=== PATIENT | male | born 1975 | race Caucasian/White ===

== ENCOUNTER → 2022-05-14 10:00 | Outpatient (BNVA) | payer OTHER, SELFPAY | PROVIDERS: Visit Provider Counselor Mental Health | DX: F43.20 Adjustment disorder, unspecified (principal); G47.30 Sleep apnea, unspecified; E66.01 Morbid (severe) obesity due to excess calories | CPT/HCPCS: 90791 ==

== ENCOUNTER → 2022-05-30 09:28 | Outpatient (BNVA) | payer OTHER, SELFPAY | PROVIDERS: Visit Provider Dietitian, Registered | DX: E66.01 Morbid (severe) obesity due to excess calories (principal) | CPT/HCPCS: 97802 ==

== ENCOUNTER → 2022-09-23 09:55 | Outpatient (BNVA) | payer OTHER, BC, SELFPAY | PROVIDERS: Visit Provider Nurse Practitioner Family | DX: Z13.89 Encounter for screening for other disorder (principal) ==

== ENCOUNTER → 2022-10-28 08:06 | Outpatient (BNVA) | payer OTHER, BC, SELFPAY | PROVIDERS: Visit Provider Surgery | DX: Z13.89 Encounter for screening for other disorder (principal) ==

== ENCOUNTER 2022-11-04 08:07 | Outpatient (REF) | payer OTHER, BC, SELFPAY ==
--- NOTE | ~2022-11-04 | US_ITS ---
EXAMINATION: US COMPLETE ABDOMEN WITH LIVER ELASTOGRAPHY CLINICAL INFORMATION: Morbid/severe obesity due to excess calories. COMPARISON: None available. TECHNIQUE: Real-time imaging of the abdominal viscera. Noninvasive ultrasound liver fibrosis assessment is performed using Velia ElastPQ point quantification shear wave elastography (2D-SWE) with a C5-2 MHz transducer. Multiple elastography samples are obtained. FINDINGS: PANCREAS: The visualized pancreatic head and body are normal in appearance. The tail of the pancreas is obscured from visualization by the overlying bowel gas. ABDOMINAL AORTA: The proximal, middle, and distal aortic segments are normal in caliber. INFERIOR VENA CAVA: Visualized portions are normal. LIVER: The liver demonstrates normal size, contour and increased echogenicity. No focal lesion or intrahepatic biliary duct dilatation. The right lobe measures 19.0 cm in length. The left lobe measures 16.3 cm in length. Portal flow is hepatopedal. Shear wave liver elastography median stiffness is 1.52 m/s (reference: normal median stiffness is 1.3 m/s or less). IQR/median stiffness to assess sampling precision is 0.24 (reference: good quality data set is IQR/median stiffness of 0.15 or less). GALLBLADDER: Gallbladder wall thickness measures 0.4 cm The gallbladder is physiologically distended without evidence of stones, sludge, polyps, wall thickening or pericholecystic fluid. COMMON BILE DUCT: Normal in caliber measuring 0.6 cm in diameter. RIGHT KIDNEY: Normal. No hydronephrosis. No renal calculi or focal parenchymal lesions. The kidney measures 12.1 cm in maximum dimension. LEFT KIDNEY: Normal. No hydronephrosis. No renal calculi or focal parenchymal lesions. The kidney measures 12.0 cm in maximum dimension. SPLEEN: Normal. The spleen measures 11.6 cm in maximum dimension. FREE FLUID: None. US/US abdomen comp w elastography IMPRESSION: 1. Mild hepatic steatosis without focal lesion. The rest of the abdominal ultrasound is unremarkable. 2. Liver elastography: Median liver stiffness measures 1.52 m/s, which corresponds to c ACLD ruled out. REFERENCE: Society of Radiologists in Ultrasound Liver Stiffness Thresholds (2019): LIVER STIFFNESS THRESHOLDS: *Liver Stiffness equal or less than 1.3 m/s: High probability of being normal. *Liver Stiffness less than 1.7 m/s: In the absence of other known clinical signs, rules out compensated advanced chronic liver disease. *Liver Stiffness 1.7-2.1 m/s: Suggestive of compensated advanced chronic liver disease but need further test for confirmation. *Liver Stiffness over 2.1 m/s: Rules in compensated advanced chronic liver disease. *Liver Stiffness over 2.4 m/s: Suggestive of clinically significant portal hypertension. QUALITY OF DATA SET: *IQR/Median value equal or less than 0.15 implies a quality data set. *IQR/Median value over 0.15 implies a poor quality data set. SIGNIFICANT CHANGE FROM PRIOR EXAM: Significant change if liver stiffness measurement is 10% or greater from prior exam. OTHER CONSIDERATIONS: The stage of liver fibrosis may be overestimated in the setting of acute hepatitis, liver inflammation, elevated liver function tests, hepatic vascular congestion, obstructive cholestasis, non-fasting state, and infiltrative diseases such as amyloidosis and lymphoma. In some patients with NAFLD, the liver stiffness thresholds for compensated advanced chronic liver disease may be lower. In causes other than viral hepatitis and NAFLD, liver stiffness thresholds are not well established.
--- NOTE | ~2022-11-04 | XR_ITS ---
EXAMINATION: XR CHEST CLINICAL INFORMATION: Bariatric service evaluation. COMPARISON: None available. TECHNIQUE: 2 views of the chest were obtained. FINDINGS: The lungs are clear and the vascularity is normal. There is no infiltrate or effusion. Heart size normal. The hilar and mediastinal contours and visualized bony structures are unremarkable. XR/XR chest 2V IMPRESSION: Unremarkable examination.
--- NOTE | ~2022-11-04 | FL_ITS ---
PROCEDURE: XR FLUOROSCOPY UPPER GI WITH AIR CLINICAL INFORMATION: Morbid/severe obesity. COMPARISON: None available. TECHNIQUE: Routine upper GI air-contrast study was performed. FINDINGS: Following oral administration of thick barium and effervescent granules there is normal propagation of bolus from the oral cavity through the pharynx, esophagus into stomach without any evidence of obstruction, narrowing or stricture. 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 Rest of the esophagus is unremarkable. On placing patient supine and prone lying the course, caliber and peristalsis of stomach, duodenal bulb and the sweep is normal. The mucosal pattern of the stomach and the duodenum is normal. FLUOROSCOPY TIME: 1.8 minutes DOSE AREA PRODUCT: 57.921 uGy-m2 (microgray-meter squared) FL/FL upper GI w air IMPRESSION: Unremarkable upper GI air-contrast exam.
--- NOTE | 2022-11-04 08:14 | ECG_ITS ---
Test Reason : e66.01 Blood Pressure : / mmHG Vent. Rate : 081 BPM Atrial Rate : 081 BPM P-R Int : 170 ms QRS Dur : 146 ms QT Int : 428 ms P-R-T Axes : 065 014 013 degrees QTc Int : 497 ms Normal sinus rhythm Right bundle branch block Abnormal ECG No previous ECGs available Referred By: Albert Domínguez Electronically Signed By:MYLA HERNANDEZ
[2022-11-04 08:22] LABS: MANUAL DIFF FLAG NO
[2022-11-04 08:28] LABS: Basophils Absolute Auto 0.1 X10*3/uL (0.0-0.2); Basophils Percent Auto 0.6 % (0-2); Eosinophils Absolute Auto 0.4 X10*3/uL (0.0-0.4); Eosinophils Percent Auto 2.9 % (0-4); Hematocrit 47.4 % (42.0-52.0); Hemoglobin 15.5 g/dl (14.0-18.0); Imm Gran Abs Auto 0.08 X10*3/uL (0.00-0.03); Imm Gran Pct Auto 0.6 % (0.0-0.4); Lymphocytes Absolute Auto 4.5 X10*3/uL (1.2-4.9); Lymphocytes Percent Auto 34.7 % (20-40); Mean Corpuscular HGB Conc 32.7 g/dl (31.0-36.0); Mean Corpuscular Hemoglobin 29.1 pg (27.0-33.0); Mean Corpuscular Volume 88.9 fL (80.0-98.0); Mean Platelet Volume 10.1 fL (9.4-12.4); Monocytes Absolute Auto 0.9 X10*3/uL (0.1-1.2); Monocytes Percent Auto 7.3 % (2-11); Neutrophils Percent Auto 53.9 % (45-73); Platelet Count 266 X10*3/uL (160-400); Red Blood Count 5.33 X10*6/uL (4.60-5.80); Red Cell Distribution Width 13.5 % (11.0-16.0); White Blood Count 12.9 X10*3/uL (4.8-10.8)
[2022-11-04 08:39] LABS: Estimated Average Glucose 154 mg/dL
[2022-11-04 09:11] LABS: Alanine Aminotransferase 25 U/L (0-40); Albumin Level 3.9 g/dL (3.5-5.0); Alkaline Phosphatase 84 U/L (39-117); Anion Gap 13 (12-20); Aspartate Amino Transferase 18 U/L (5-37); Bilirubin Total 0.6 mg/dL (0.0-1.0); Blood Urea Nitrogen 12 mg/dL (9-16); C Reactive Protein 0.59 mg/dL (< or = 0.50); Calcium 9.3 mg/dL (8.4-10.2); Carbon Dioxide 27 mmol/L (22-29); Chloride 105 mmol/L (96-108); Cholesterol 176 mg/dL; Estimated Glomerular Filt Rate > 60; Glucose Random 122 mg/dL (60-115); HDL Cholesterol 29 mg/dL; Iron 79 mcg/dL (45-160); LDL Cholesterol Calculated 73 mg/dl; Percent Iron Saturation 26 % (15-50); Potassium 4.5 mmol/L (3.3-5.1); Sodium 140 mmol/L (135-145); Total Iron Binding Capacity 309 mcg/dL (228-428); Total Protein 6.9 g/dL (6.5-8.0); Triglycerides 372 mg/dL; Unsaturated Iron Binding 230 ug/dL
[2022-11-04 09:41] LABS: Ferritin 221 ng/mL (20-250); Folate 9.5 ng/mL (> or = 4.0); Insulin 30 uU/mL (2-29); Vitamin B12 333 pg/mL (200-900); Vitamin D 25-OH Total 19.1 ng/mL (>30)
[2022-11-06 11:02] LABS: Calcium (PTHI) 9.2 mg/dL (8.6-10.3); PTHI 57 pg/mL (16-77)
[2022-11-06 15:20] LABS: H Pylori Breath Test Negative (Negative)
[2022-11-07 06:19] LABS: Zinc 75 mcg/dL (60-130)
[2022-11-08 18:54] LABS: Vitamin A 38 mcg/dL (38-98)
[2022-11-10 10:43] LABS: Vitamin B1 11 nmol/L (8-30)
== END 2022-11-04 08:08 | disposition home or self-care (01) ==
LOC: HO.US 08:07
PROVIDERS: Visit Provider Surgery
DX: Z01.818 Encounter for other preprocedural examination (principal); E66.01 Morbid (severe) obesity due to excess calories; G47.30 Sleep apnea, unspecified; K21.9 Gastro-esophageal reflux disease without esophagitis; J45.909 Unspecified asthma, uncomplicated; G47.36 Sleep related hypoventilation in conditions classified elsewhere; Z20.2 Contact with and (suspected) exposure to infections with a predominantly sexual mode of transmission
CPT/HCPCS: 36415; 71046; 74246; 76705; 76981; 80053; 80061; 82306; 82607; 82728; 82746; 83013; 83036; 83525; 83540; 83970; 84425; 84443; 84590; 84630; 85025; 86140; 93005

== ENCOUNTER → 2022-11-04 15:17 | Outpatient (REF) | payer OTHER, BC, SELFPAY | LOC: HO.SL 15:17 | PROVIDERS: PCP Internal Medicine Cardiovascular Disease; Visit Provider Nurse Practitioner Family | DX: G47.30 Sleep apnea, unspecified (principal); E66.01 Morbid (severe) obesity due to excess calories; G47.36 Sleep related hypoventilation in conditions classified elsewhere | CPT/HCPCS: 95806 ==

== ENCOUNTER → 2022-11-13 10:30 | Outpatient (BNVA) | payer OTHER, BC, SELFPAY | PROVIDERS: PCP Internal Medicine Cardiovascular Disease; Visit Provider Counselor Mental Health | DX: Z13.89 Encounter for screening for other disorder (principal) ==

== ENCOUNTER → 2022-11-14 11:16 | Outpatient (BNVA) | payer OTHER, BC, SELFPAY | PROVIDERS: PCP Internal Medicine Cardiovascular Disease; Visit Provider Dietitian, Registered | DX: E66.01 Morbid (severe) obesity due to excess calories (principal); Z71.3 Dietary counseling and surveillance | CPT/HCPCS: 97803 ==

== ENCOUNTER → 2022-11-22 07:58 | Outpatient (BNVA) | payer OTHER, BC, SELFPAY | PROVIDERS: Visit Provider Surgery | DX: Z13.89 Encounter for screening for other disorder (principal) ==

== ENCOUNTER → 2022-12-02 08:04 | Outpatient (REF) | payer OTHER, BC, SELFPAY ==
--- NOTE | 2022-12-02 08:09 | CA_ITS ---
Acquisition Time: 2022-12-02 09:15:19 Total Exercise Time: 00:06:56 Test Indications: Abnormal ECG Medications: ALBUTEROL [id number] METFORMI N BUDESONIDE Protocol: KEN Max HR: 150 BPM 87% of Pred: 171 BPM Max BP: 132/082 mmHG Max Work Load: 8.4 METS Exercise stress test with exercise 6 min 56 sec of Ken protocol, achieving 87% MPHR, 8.4 METs, with mild sob, no chest discomfort, without arrythmia, with normotensive response to exercise, without EKG changes meeting criteria for ischemia. There are repolarization abnormalities noted in V1-V3 which is consistent with RBBB. In recovery his breathing improved quickly. Test reviewed with Dr Kelsey. Referred By: Albert Domínguez Overread By: CHARLOTTE MEZA
--- NOTE | 2022-12-02 08:09 | CA_ITS ---
Transthoracic Echocardiogram Patient (Last, First, Middle): Pretson Clarke, Gender: Male Date of : 1975 Age: 47 Procedure Date: 12/02/2022 Procedure Type: Transthoracic Echocardiogram Location: OP Height: 170.18 cm Weight: 124.29 kg BSA: 2.31 m2 Heart Rate: 70 bpm BP: 122 / 70 mmHg Doctor Of Medicine: SB Referring MD: Albert Domínguez MD Symptoms: R94.31 - Abnormal electrocardiogram [ECG] [EKG] Study Quality: Adequate w contrast ECG Rhythm: Sinus Conclusions: - The left ventricular systolic function is normal. The calculated ejection fraction is 55% by biplane method. - No obvious valvular pathology seen on this study. Findings Procedure Information Contrast agent, definity, is being given per protocol without apparent complications. Left Ventricle Normal left ventricular cavity size. There is normal left ventricular wall thickness. The left ventricular systolic function is normal. The calculated ejection fraction is 55% by biplane method. There is no evidence of regional wall motion abnormalities. Diastolic function is normal for age. Right Ventricle Normal right ventricular cavity size and systolic function. Atria Both atria are normal in size. Aortic Valve There is a normal trileaflet aortic valve. There is no aortic valve stenosis. There is no aortic valve regurgitation. Mitral Valve The mitral valve appears normal. There is no mitral valve regurgitation. There is no mitral valve stenosis. Pulmonic Valve The pulmonic valve is likely normal. Tricuspid Valve There is trace tricuspid valve regurgitation. There is no evidence of pulmonary hypertension. Great Vessels The asc aorta is normal in size. Venous The inferior vena cava is normal in size and collapses greater than 50% with inspiration. Pericardium/Pleural There is no evidence of pericardial effusion. Prior Study Comparison No prior study available for comparison. Recommendations, Care & Conclusions No obvious valvular pathology seen on this study. Measurements 2D Linear Measurements IVSd: 1.03 0.6-0.9/0.6-1.0 cm LVIDd: 5.31 3.9-5.3/4.2-5.9 cm LVIDd Index: 2.30 2.4-3.2/2.2-3.1 cm/m2 LVIDs: 3.68 2.0-3.6 cm LVPWd: 0.99 0.7-1.1 cm LA Diam: 4.30 2.7-3.8/3.0-4.0 cm LAIDs Index: 1.86 1.5-2.3 cm/m2 LV Mass: 253.54 67-162/88-224 g LV Mass Index: 109.76 43-95/49-115 g/m2 LVOT Diam: 2.40 3.0+(-)1.3 cm 2D Systolic Function EF 4C: 56.00 >55% EF 2C: 55.10 >55% EF BiP: 54.90 >55% Mitral Valve MV Pk E: 0.71 MV PK A: 0.57 MV Decel Time: 212.00 E/A: 1.20 E'Lateral: 8.92 E'Medial: 5.98 E/E' Med: 11.80 E/E' Lat: 7.90 PHT: 62.00 MVA PHT: 3.55 Decel Pleasants: 3.34 Aortic Valve AoV Pk Elliott: 1.22 AoV Pk Grad: 6.00 JERRY: 3.80 LVOT LVOT Pk Elliott: 1.03 LVOT Mn Elliott: 0.64 LVOT VTI: 0.21 LVOT Pk Grad: 4.00 LVOT Mn Grad: 2.00 LVOT Diam: 2.40 LVOT Area: 4.52 Diastolic Function MV Pk E: 0.71 MV Pk A: 0.57 E/A: 1.20 E'Medial: 5.98 E/E' Med: 11.80 E' Laterial: 8.92 E/E' Lat: 7.90 Right Ventricle TAPSE (mm): 18.60 TVS' Elliott: 16.00 Tricuspid Valve RA Press: 3.00 Great Vessels Aorta Sinus of Valsalva: 3.30 2.0-3.5 cm Ao Asc: 3.20 2.1-3.4 cm Pulmonary Veins Pulm Vein S/D 0.90 Pulmonary Valve PV Pk Elliott: 1.37 Peak PV Grad: 8.00 Updated in Other Vendor System with Status of Final Alex Alberto MD electronically signed on 12/02/2022 12:37:14 PM with status of Final
== END ==
LOC: HO.CARD 08:04
PROVIDERS: PCP Internal Medicine Cardiovascular Disease; Visit Provider Surgery
DX: Z01.818 Encounter for other preprocedural examination (principal); R94.31 Abnormal electrocardiogram [ECG] [EKG]; R06.02 Shortness of breath
CPT/HCPCS: 93017; 93306; Q9957

== ENCOUNTER → 2022-12-10 10:29 | Outpatient (BNVA) | payer OTHER, BC, SELFPAY | PROVIDERS: PCP Internal Medicine Cardiovascular Disease; Visit Provider Dietitian, Registered | DX: E66.01 Morbid (severe) obesity due to excess calories (principal); Z68.41 Body mass index [BMI] 40.0-44.9, adult; Z71.3 Dietary counseling and surveillance | CPT/HCPCS: 97803 ==

== ENCOUNTER → 2022-12-13 08:00 | Outpatient (BNVA) | payer OTHER, BC, SELFPAY | PROVIDERS: Visit Provider Surgery ==

== ENCOUNTER → 2022-12-20 07:58 | Outpatient (BNVA) | payer OTHER, BC, SELFPAY | PROVIDERS: Visit Provider Surgery ==

== ENCOUNTER → 2022-12-23 09:58 | Outpatient (BNVA) | payer OTHER, BC, SELFPAY | PROVIDERS: Visit Provider Surgery ==

== ENCOUNTER 2023-01-07 06:13 | Inpatient (IN) | payer OTHER, BC, SELFPAY ==
[2022-12-20 13:21] VITALS: BMI 41.2
[2022-12-23 12:22] LABS: MANUAL DIFF FLAG NO
[2022-12-23 12:50] LABS: Basophils Absolute Auto 0.1 X10*3/uL (0.0-0.2); Basophils Percent Auto 0.6 % (0-2); Eosinophils Absolute Auto 0.3 X10*3/uL (0.0-0.4); Eosinophils Percent Auto 2.2 % (0-4); Hematocrit 48.2 % (42.0-52.0); Hemoglobin 15.9 g/dl (14.0-18.0); Imm Gran Abs Auto 0.06 X10*3/uL (0.00-0.03); Imm Gran Pct Auto 0.5 % (0.0-0.4); Lymphocytes Absolute Auto 3.7 X10*3/uL (1.2-4.9); Lymphocytes Percent Auto 29.7 % (20-40); Mean Corpuscular Hemoglobin 29.3 pg (27.0-33.0); Mean Corpuscular Volume 88.8 fL (80.0-98.0); Mean Platelet Volume 10.4 fL (9.4-12.4); Monocytes Absolute Auto 0.7 X10*3/uL (0.1-1.2); Monocytes Percent Auto 5.9 % (2-11); Neutrophils Absolute Auto 7.6 x10*3/uL (2.0-8.3); Neutrophils Percent Auto 61.1 % (45-73); Platelet Count 303 X10*3/uL (160-400); Red Blood Count 5.43 X10*6/uL (4.60-5.80); Red Cell Distribution Width 13.2 % (11.0-16.0); White Blood Count 12.5 X10*3/uL (4.8-10.8)
[2022-12-23 13:05] LABS: Prothrombin Time 11.1 SEC (10.0-13.1)
[2022-12-23 13:08] LABS: Partial Thromboplastin Time 43.2 SEC (26.0-36.4)
[2022-12-23 13:14] LABS: Estimated Average Glucose 123 mg/dL; Hemoglobin A1c % 5.9 %
[2022-12-23 13:29] LABS: Alanine Aminotransferase 11 U/L (0-40); Albumin Level 4.2 g/dL (3.5-5.0); Alkaline Phosphatase 81 U/L (39-117); Anion Gap 12 (12-20); Aspartate Amino Transferase 14 U/L (5-37); Bilirubin Total 0.9 mg/dL (0.0-1.0); Blood Urea Nitrogen 8 mg/dL (9-16); C Reactive Protein 0.49 mg/dL (< or = 0.50); Calcium 9.4 mg/dL (8.4-10.2); Carbon Dioxide 29 mmol/L (22-29); Chloride 104 mmol/L (96-108); Cholesterol 160 mg/dL; Creatinine Clr Calc Pharmacy 129.9; Estimated Glomerular Filt Rate > 60; Glucose Random 94 mg/dL (60-115); HDL Cholesterol 30 mg/dL; LDL Cholesterol Calculated 99 mg/dl; Potassium 4.4 mmol/L (3.3-5.1); Sodium 141 mmol/L (135-145); Total Protein 7.1 g/dL (6.5-8.0); Triglycerides 155 mg/dL
[2022-12-23 13:45] LABS: Insulin 16 uU/mL (2-29); TSH reflex Free T4 0.77 uIU/mL (0.32-4.0)
--- NOTE | 2023-01-03 09:50 | P.CONAN_ITS ---
Documented by User: Maureen Chan NP 01/03/23 09:51 [facility] Active Problems Active Problems: All Active Problems (Updated 12/20/22 @ 13:10 by Yara Driver RN) Adjustment disorder, unspecified (Acute) Hypoxemia associated with sleep (Acute) Vitamin D deficiency (Acute) Vitamin B12 deficiency (Acute) Abnormal EKG (Acute) GERD (gastroesophageal reflux disease) (Acute) Sleep apnea (Acute) Asthma (Acute) Morbid obesity (Acute) Past Medical History Medical History Asthma GERD (gastroesophageal reflux disease) Morbid obesity Prediabetes Sleep apnea Family History Family History Mother HTN (hypertension) Father HTN (hypertension) Diabetes Son No problems noted. Son No problems noted. Surgical History Surgical History H/O colonoscopy History of esophagogastroduodenoscopy (EGD) Social History Social History Are you a primary clinical care coordinator to a significant other at home: No Do you presently have visiting nurse or other home services: No Alcohol intake: never Patient Tobacco Use Status: Never used Tobacco Use of substances other than those prescribed or required for medical reasons: No Have you been hit, kicked, punched, or otherwise hurt by someone within the past year? If so, by whom?: No Are you DNR?: No Advance Directives: Yes Advance Directives Information Provided: No Advance Directives on File: Yes Advance Directives Date on File: 11/04/22 Recently lost weight without trying: No Nutrition Risks: No Nutritional Risk Poor oral hygiene: No Meds Allergies Allergy/AdvReac Type Severity Reaction Status Date / Time No Known Allergies Allergy Verified 01/07/23 06:14 Home Medications Medication Instructions Recorded Confirmed Last Taken Type albuterol sulfate 0.63 mg/3 mL 0.63 mg inhalation QID PRN Wheezing 04/29/22 12/20/22 Unknown History solution for nebulization ascorbic acid (vitamin C) 500 mg 500 mg PO DAILY 04/29/22 12/20/22 01/06/23 History capsule,extended release budesonide 0.5 mg/2 mL suspension 0.25 mg inhalation BID PRN Wheezing 04/29/22 12/20/22 Unknown History for nebulization (Pulmicort) metformin 500 mg tablet 500 mg PO BID 11/04/22 12/20/22 01/06/23 History pantoprazole 40 mg tablet,delayed 40 mg PO DAILY PRN Acid Reflux 12/20/22 12/20/22 Unknown History release Exam Exam Date and Time: January 03, 2023 0950 Height,Weight and Vital Signs: Height 5 ft 7 in Weight 119.295 kg Pertinent Lab Results Pertinent Lab Results: Laboratory Tests 12/23/22 12/23/22 12/23/22 12:20 12:21 12:21 WBC 12.5 H RBC 5.43 Hgb 15.9 Hct 48.2 MCV 88.8 MCH 29.3 MCHC 33.0 RDW 13.2 Plt Count 303 MPV 10.4 Immature Gran % (Auto) 0.5 H Neut % (Auto) 61.1 Lymph % (Auto) 29.7 [place] % (Auto) 5.9 Eos % (Auto) 2.2 Baso % (Auto) 0.6 Lymph # (Auto) 3.7 [place] # (Auto) 0.7 Eos # (Auto) 0.3 Baso # (Auto) 0.1 Abs Immat Gran (auto) 0.06 H Absolute Neuts (auto) 7.6 Absolute Nucleated RBC 0.000 Nucleated RBC % (auto) 0.0 PT 11.1 INR 1.0 APTT 43.2 H Sodium Potassium Chloride Carbon Dioxide Anion Gap BUN Creatinine Estim Creat Clear Calc Estimated GFR Random Glucose Estimat Average Glucose Hemoglobin A1c % Insulin Level Calcium Total Bilirubin AST ALT Alkaline Phosphatase C-Reactive Protein Total Protein Albumin Triglycerides Cholesterol LDL Cholesterol, Calc HDL Cholesterol TSH Blood Type A Positive Antibody Screen NEGATIVE 12/23/22 12/23/22 12:21 12:21 WBC RBC Hgb Hct MCV MCH MCHC RDW Plt Count MPV Immature Gran % (Auto) Neut % (Auto) Lymph % (Auto) [place] % (Auto) Eos % (Auto) Baso % (Auto) Lymph # (Auto) [place] # (Auto) Eos # (Auto) Baso # (Auto) Abs Immat Gran (auto) Absolute Neuts (auto) Absolute Nucleated RBC Nucleated RBC % (auto) PT INR APTT Sodium 141 Potassium 4.4 Chloride 104 Carbon Dioxide 29 Anion Gap 12 BUN 8 L Creatinine 0.85 Estim Creat Clear Calc 129.9 Estimated GFR > 60 Random Glucose 94 Estimat Average Glucose 123 Hemoglobin A1c % 5.9 Insulin Level 16 Calcium 9.4 Total Bilirubin 0.9 AST 14 ALT 11 Alkaline Phosphatase 81 C-Reactive Protein 0.49 Total Protein 7.1 Albumin 4.2 Triglycerides 155 Cholesterol 160 LDL Cholesterol, Calc 99 HDL Cholesterol 30 TSH 0.77 Blood Type Antibody Screen Narrative Narrative: EKG 10/2022 Vent. Rate : 081 BPM ? ? Atrial Rate : 081 BPM ?? P-R Int : 170 ms? QRS Dur : 146 ms ? ? QT Int : 428 ms ? ? ? P-R-T Axes : 065 014 013 degrees ?? QTc Int : 497 ms ? Normal sinus rhythm Right bundle branch block Abnormal ECG No previous ECGs available ECHO 11/2022 Conclusions: - The left ventricular systolic function is normal.? The ? calculated ejection fraction is 55% by biplane method. ? - No obvious valvular pathology seen on this study.? Exercise Stress 11/2022 Protocol: DMITRY ? Max HR: 150 BPM? 87% of? Pred: 171 BPM Max BP: 132/082 mmHG Max Work Load: 8.4 METS ? Exercise stress test with exercise 6 min 56 sec of Dmitry protocol, achieving 87% ?MPHR, 8.4 METs, with mild sob, no chest discomfort, without arrythmia, with ?normotensive response to exercise, without EKG changes meeting criteria for ischemia. There are repolarization abnormalities noted in V1-V3 which is consistent with RBBB. In recovery his breathing? improved quickly. Test reviewed with Dr Kelsey. Assessment and Plan Assessment Anesthesia Assessment: Chart Reviewed Documented by User: Laury Valero MD 01/07/23 08:56 [facility] Past Medical History Medical History Asthma GERD (gastroesophageal reflux disease) Morbid obesity Prediabetes Sleep apnea Family History Family History Mother HTN (hypertension) Father HTN (hypertension) Diabetes Son No problems noted. Son No problems noted. Surgical History Surgical History H/O colonoscopy History of esophagogastroduodenoscopy (EGD) History of Problems with Anesthesia: No Social History Social History Are you a primary clinical care coordinator to a significant other at home: No Do you presently have visiting nurse or other home services: No Alcohol intake: never Patient Tobacco Use Status: Never used Tobacco Use of substances other than those prescribed or required for medical reasons: No Have you been hit, kicked, punched, or otherwise hurt by someone within the past year? If so, by whom?: No Are you DNR?: No Advance Directives: Yes Advance Directives Information Provided: No Advance Directives on File: Yes Advance Directives Date on File: 11/04/22 Recently lost weight without trying: No Nutrition Risks: No Nutritional Risk Poor oral hygiene: No Meds Allergies Allergy/AdvReac Type Severity Reaction Status Date / Time No Known Allergies Allergy Verified 01/07/23 06:14 Home Medications Medication Instructions Recorded Confirmed Last Taken Type albuterol sulfate 0.63 mg/3 mL 0.63 mg inhalation QID PRN Wheezing 04/29/22 12/20/22 Unknown History solution for nebulization ascorbic acid (vitamin C) 500 mg 500 mg PO DAILY 04/29/22 12/20/22 01/06/23 History capsule,extended release budesonide 0.5 mg/2 mL suspension 0.25 mg inhalation BID PRN Wheezing 04/29/22 12/20/22 Unknown History for nebulization (Pulmicort) metformin 500 mg tablet 500 mg PO BID 11/04/22 12/20/22 01/06/23 History pantoprazole 40 mg tablet,delayed 40 mg PO DAILY PRN Acid Reflux 12/20/22 12/20/22 Unknown History release Exam Airway Mallampati Class: III TM Dist: >3cm Neck ROM: Full Loose/Missing/Broken Teeth: No Heart: RRR Lungs: CTA Assessment and Plan Assessment Anesthesia Assessment: Anesthesia Plan Discussed Final Anesthetic Review History of Problems with Anesthesia: No NPO: Yes ASA Class: III Final Preanesthetic Review: Meds/Allgs Chart Reviewed, Consent Obtained/Reviewed and Anes Risks/Benef Reviewed Patient Risk: Intermediate Procedure Risk: Intermediate Anesthetic Plan Anesthetic Plan: GA Disposition: Standard PACU
--- NOTE | 2023-01-05 11:11 | P.HPSUR_ITS ---
Pre-Procedural Eval Section A Date of Service: 01/05/23 The patient is an INPATIENT: Yes The History & Physical has been completed within 30 days and I have reviewed it.: Yes Section B Chief Complaint: Morbid (severe) obesity due to excess calories Relevant Family History (Specify if Yes): No Relevant Social History: None Present Medications: None Medical History: No relevant PMH History of Previous Operations: No relevant previous surgery Allergies: Allergies Allergy/AdvReac Type Severity Reaction Status Date / Time No Known Allergies Allergy Verified 12/20/22 08:25 Review of Systems Sugical H&P ROS: Negative: Constitution, Cardiovascular, Respiratory, Neurological, Psychiatric, Hem-Onc, Allergic/Immunologic, Gastrointestinal, Genitourinary, Musculoskeletal, Integumentary, Endocrine and Eyes/Ears/No se/Throat Exam Surgical H&P Exam: Normal: HEENT, Normal: Heart, Normal: Lungs, Normal: Extremities, Normal: Abdomen, Normal: Skin and Normal: Neurological Plan Diagnosis/Plan: Unchanged I have reviewed the history and physical and performed a pertinent physical examination on my patient. No changes have occurred unless specified. Time Spent With Patient Time: Total time managing care of this patient today ____ minutes.
[2023-01-07] VITALS (17 sets, daily range): BP systolic 120–158; BP diastolic 57–91; PULSE 67–81; RESP 14–22; TEMP 36.1–37; O2SAT 90–98
[2023-01-07 06:36] LABS: COVID-19 Test Negative (Negative); IDNOW Serial# BCCEAD1C
--- NOTE | 2023-01-07 06:54 | PHA.MEDREC ---
Pharmacy Consult ? Medication Reconciliation Pharmacy has reviewed the medication reconciliation completed by nursing.
[2023-01-07 07:08] LABS: Glucose, Whole Blood 93 mg/dL (60-115)
[2023-01-07] MEDS: Lactated Ringers 1,000 ML 999 ML IV (07:15)
[2023-01-07] MEDS: Aprepitant 32 MG/4.4 ML VIAL IVPUSH (07:18)
--- NOTE | 2023-01-07 07:25 | P.CONAN_ITS ---
FORMERLY [facility] Active Problems Active Problems: All Active Problems (Updated 12/20/22 @ 13:10 by Yara Driver RN) Adjustment disorder, unspecified (Acute) Hypoxemia associated with sleep (Acute) Vitamin D deficiency (Acute) Vitamin B12 deficiency (Acute) Abnormal EKG (Acute) GERD (gastroesophageal reflux disease) (Acute) Sleep apnea (Acute) Asthma (Acute) Morbid obesity (Acute) Past Medical History Medical History (Updated 01/07/23 @ 07:43 by Albert Domínguez MD) Asthma GERD (gastroesophageal reflux disease) Morbid obesity Prediabetes Sleep apnea Family History Family History Mother HTN (hypertension) Father HTN (hypertension) Diabetes Son No problems noted. Son No problems noted. Surgical History Surgical History H/O colonoscopy History of esophagogastroduodenoscopy (EGD) Social History Social History (Updated 09/23/22 @ 10:05 by Jennifer Baires CMA) Are you a primary healthcare economics consultant to a significant other at home: No Do you presently have visiting nurse or other home services: No Alcohol intake: never Patient Tobacco Use Status: Never used Tobacco Use of substances other than those prescribed or required for medical reasons: No Have you been hit, kicked, punched, or otherwise hurt by someone within the past year? If so, by whom?: No Are you DNR?: No Advance Directives: Yes Advance Directives Information Provided: No Advance Directives on File: Yes Advance Directives Date on File: 11/04/22 Recently lost weight without trying: No Nutrition Risks: No Nutritional Risk Poor oral hygiene: No Meds Allergies Allergy/AdvReac Type Severity Reaction Status Date / Time No Known Allergies Allergy Verified 01/07/23 06:14 Active Medications: Current Medications Albuterol Sulfate (Albuterol Sulfate (0.083%) 2.5 Mg/3 Ml Vial.Neb) 2.5 mg INHALE ONCE PRN PRN Reason: Shortness of Breath/Wheezing Lactated Ringer's (Lr) 1,000 mls @ 100 mls/hr IVCONT .Q10H BHAVIN Lactated Ringer's (Lr) 1,000 mls @ 999 mls/hr IV .Q1H1M BHAVIN Stop: 01/07/23 08:15 Last Admin: 01/07/23 07:15 Dose: 999 mls/hr Home Medications Medication Instructions Recorded Confirmed Last Taken Type albuterol sulfate 0.63 mg/3 mL 0.63 mg inhalation QID PRN Wheezing 04/29/22 12/20/22 Unknown History solution for nebulization ascorbic acid (vitamin C) 500 mg 500 mg PO DAILY 04/29/22 12/20/22 01/06/23 History capsule,extended release budesonide 0.5 mg/2 mL suspension 0.25 mg inhalation BID PRN Wheezing 04/29/22 12/20/22 Unknown History for nebulization (Pulmicort) metformin 500 mg tablet 500 mg PO BID 11/04/22 12/20/22 01/06/23 History pantoprazole 40 mg tablet,delayed 40 mg PO DAILY PRN Acid Reflux 12/20/22 12/20/22 Unknown History release Exam Exam Date and Time: January 07, 2023 0725 Height,Weight and Vital Signs: Height 5 ft 7 in Weight 119.295 kg Last Vital Signs Temp 98.2 F 01/07/23 06:26 Pulse 81 01/07/23 06:26 Resp 16 01/07/23 06:26 BP 144/80 H 01/07/23 06:26 Pulse Ox 96 01/07/23 06:26 O2 Del Method Room Air 01/07/23 06:26 Pertinent Lab Results Pertinent Lab Results: Laboratory Tests 12/23/22 12/23/22 12/23/22 12:20 12:21 12:21 WBC 12.5 H RBC 5.43 Hgb 15.9 Hct 48.2 MCV 88.8 MCH 29.3 MCHC 33.0 RDW 13.2 Plt Count 303 MPV 10.4 Immature Gran % (Auto) 0.5 H Neut % (Auto) 61.1 Lymph % (Auto) 29.7 [place] % (Auto) 5.9 Eos % (Auto) 2.2 Baso % (Auto) 0.6 Lymph # (Auto) 3.7 [place] # (Auto) 0.7 Eos # (Auto) 0.3 Baso # (Auto) 0.1 Abs Immat Gran (auto) 0.06 H Absolute Neuts (auto) 7.6 Absolute Nucleated RBC 0.000 Nucleated RBC % (auto) 0.0 PT 11.1 INR 1.0 APTT 43.2 H Sodium Potassium Chloride Carbon Dioxide Anion Gap BUN Creatinine Estim Creat Clear Calc Estimated GFR POC Glucose Random Glucose Estimat Average Glucose Hemoglobin A1c % Insulin Level Calcium Total Bilirubin AST ALT Alkaline Phosphatase C-Reactive Protein Total Protein Albumin Triglycerides Cholesterol LDL Cholesterol, Calc HDL Cholesterol TSH COVID-19 (CARLYN) COVID-19 Clin Com Blood Type A Positive Antibody Screen NEGATIVE 12/23/22 12/23/22 01/07/23 12:21 12:21 06:15 WBC RBC Hgb Hct MCV MCH MCHC RDW Plt Count MPV Immature Gran % (Auto) Neut % (Auto) Lymph % (Auto) [place] % (Auto) Eos % (Auto) Baso % (Auto) Lymph # (Auto) [place] # (Auto) Eos # (Auto) Baso # (Auto) Abs Immat Gran (auto) Absolute Neuts (auto) Absolute Nucleated RBC Nucleated RBC % (auto) PT INR APTT Sodium 141 Potassium 4.4 Chloride 104 Carbon Dioxide 29 Anion Gap 12 BUN 8 L Creatinine 0.85 Estim Creat Clear Calc 129.9 Estimated GFR > 60 POC Glucose Random Glucose 94 Estimat Average Glucose 123 Hemoglobin A1c % 5.9 Insulin Level 16 Calcium 9.4 Total Bilirubin 0.9 AST 14 ALT 11 Alkaline Phosphatase 81 C-Reactive Protein 0.49 Total Protein 7.1 Albumin 4.2 Triglycerides 155 Cholesterol 160 LDL Cholesterol, Calc 99 HDL Cholesterol 30 TSH 0.77 COVID-19 (CARLYN) Negative COVID-19 Clin Com See Note Blood Type Antibody Screen 01/07/23 07:02 WBC RBC Hgb Hct MCV MCH MCHC RDW Plt Count MPV Immature Gran % (Auto) Neut % (Auto) Lymph % (Auto) [place] % (Auto) Eos % (Auto) Baso % (Auto) Lymph # (Auto) [place] # (Auto) Eos # (Auto) Baso # (Auto) Abs Immat Gran (auto) Absolute Neuts (auto) Absolute Nucleated RBC Nucleated RBC % (auto) PT INR APTT Sodium Potassium Chloride Carbon Dioxide Anion Gap BUN Creatinine Estim Creat Clear Calc Estimated GFR POC Glucose 93 Random Glucose Estimat Average Glucose Hemoglobin A1c % Insulin Level Calcium Total Bilirubin AST ALT Alkaline Phosphatase C-Reactive Protein Total Protein Albumin Triglycerides Cholesterol LDL Cholesterol, Calc HDL Cholesterol TSH COVID-19 (CARLYN) COVID-19 Clin Com Blood Type Antibody Screen
--- NOTE | 2023-01-07 07:38 | PM.OP ---
Brief Operative Note Date of Service: 01/07/23 Pre-op diagnosis: Morbid obesity with comorbidities (see below) Post-op diagnosis: same (abdominal adhesions and hepatomegaly) Procedure: INITIAL PATIENT BMI ON PRESENTATION AT OUR OFFICE: 45.1 kg/m2 LAST BMI BEFORE SURGERY: 40.3 kg/m2 COMORBIDITIES: Sleep apnea on CPAP, asthma, GERD, liver steatosis, liver fibrosis ?The patient presented to the Weight Management Program with significant obesity that was negatively impacting the patient's comorbidities as listed above.? The program is a phased program with a special focus on preoperative medical weight management to promote substantial weight loss and prepare the patients for the second phase of the program: bariatric surgery. The patient participated in an intensive weekly lifestyle ?intervention and exercise program during which the patient ?has lost between the initial office visit and the last preoperative visit 28.4 lbs, or 9.96% of initial actual body weight. It was deemed appropriate for the patient to now have bariatric surgery. In light of the current Covid-19 pandemic and the well documented strong association of obesity and increased risk of worse outcomes if infected with Covid-19 (REFERENCES:https://pubmed.ncbi.nlm.nih.gov/16565854/,?https://pubmed.ncbi.nlm.nih.gov/03120553/), any delay in undergoing bariatric surgery may lead to the patient's worsening health condition and increased?risk of more severe Covid-19 disease if infected. In addition a recent?study from [facility] published in [facility] on 08/06/2021 ([email or web address]) found that, among patients with obesity, substantial weight loss achieved with surgery was associated with improved outcomes of COVID-19 infection. The findings suggest that obesity can be a modifiable risk factor for the severity of COVID-19 infection. In addition, the patient met the BMI-criteria for bariatric surgery based on the BMI on initial presentation. The patient should not be penalized for achieving such weight loss because ?it is not sustainable long-term without surgical intervention and it was achieved in preparation for bariatric surgery ?under my direction and based on my published research ([email or web address] and?[email or web address].soard.org/article/[email or web address])27930-X/pdf) ?that a 10% preoperative weight loss improves long-term weight loss after surgery and reduces perioperative complications.? Insurance carriers such as [facility] have endorsed my recommendations ?and have included in their policies criteria to include a 10% preoperative weight loss requirement. PROCEDURE: Esophago-gastroscopy, laparoscopic lysis of adhesions, laparoscopic sleeve gastrectomy and laparoscopic gastropexy INDICATIONS: This is a 47 year-old male who was electively scheduled for laparoscopic, possibly open sleeve gastrectomy. The risks and complications of the procedure were discussed with the patient in advance, particularly the possibility of ; pulmonary embolism; staple line leak; bleeding; GERD; cardiac, pulmonary, or renal complications; as well as long-term problems such as insufficient weight loss, vitamin deficiency, strictures, or ulcers. The patient understood all the risks, and was in agreement to proceed with surgery. DESCRIPTION OF PROCEDURE: After informed consent was obtained from the patient, the patient was given preoperative antibiotics, and was transferred to the operating room. After successful induction of general anesthesia, pneumatic compression devices were placed on both lower extremities. An upper endoscopy was performed next. The oropharynx and esophagus appeared to be within normal limits. There was no diaphragmatic hernia present consistent with the findings of the preoperative upper GI. The stomach was entered. Then after all fluid and air were suctioned and the stomach was fully decompressed, the scope was withdrawn and secured in the mid esophagus. The patient was then prepped and draped in the usual sterile manner, and abdominal access was established at the right upper quadrant with the Hany technique. A 12 mm blunt port was inserted, and the abdomen was insufflated with CO2 to a pressure of 15 mmHg. Under direct visualization, additional ports were placed, specifically two 5 mm Versi-step ports to the left upper quadrant, and a 5 mm Versi-Step port to the right upper quadrant. 1% lidocaine plain was used to infiltrate all port sites as well as all fascia defects. Following that, the patient was placed in a steep reverse Trendelenburg position. An additional 5 mm port was placed to the right flank for the Mediflex retractor that was used to retract the left lobe of the liver. There was significant hepatomegaly that made exposure difficult and prolonged the operation with a total operative time of 2 hours. The gastro-esophageal fat pad was opened with the ultrasonic device (Thunderbeat, Olympus) and the anterior esophagus and hiatus were exposed. The angle of His was opened with the ultrasonic device the fundus of the stomach from any diaphragmatic and splenic attachments. I then opened the gastrocolic ligament between the transverse colon and the greater curvature of the stomach with the ultrasonic device to enter the lesser sac and facilitate the ligation of the short gastric vessels. I started at a mid-point along the greater curvature and using the Thunderbeat, all short gastric vessels were divided all the way to the angle of His until the left nadia was completely dissected at its entirety. I then divided the gastro-colic ligament distally to a distance of about 3-4 cm proximal to the pylorus. There were extensive congenital adhesions between the pancreas and posterior gastric wall. Those were lysed completely with the ultrasonic device. Adhesiolysis took approximately 45 min to complete. The stomach was then divided transversely with one Endo BRITT-45 purple and five BRITT-6s0 articulating purple loads using the SIGNIA stapler and loads. Every effort was made that the gastric sleeve had a tubular shape and an even caliber throughout. Once the sleeve resection was completed, the staple line of the gastric sleeve was reinforced with Hemoclips. The resected stomach was retrieved without difficulty from the Hany port. A gastropexy was then performed in order to prevent postoperative GERD and partial gastric volvulus. Several interrupted 2.0 Surgidac sutures were placed between the sleeve's staple line and the previously divided greater omentum and gastro-colic ligament using the Endo-Stitch device. ?An upper endoscopy was performed. There was no narrowing at the GE junction. The scope was easily advanced all the way to the pylorus which was clearly visualized. There was no narrowing anywhere and the sleeve's caliber was even throughout. The sleeve's staple line was inspected and there was no evidence of ischemia, bleeding or dehiscence. At that point the gastroscope was withdrawn from the patient?s mouth while we were decompressing the bowel and the stomach from any remaining air. I looked into the lesser sac to see how the sleeve was situating and it was situating well. There was no bleeding from the staple line, spleen, or short gastric vessels. The Mediflex retractor was removed, and the undersurface of the liver was inspected and there was no bleeding. The patient was placed in supine position. I closed the fascial defect of the 12 mm port site with a figure of eight #1 Polysorb suture. Then 30cc Ropivacaine plain with 10 mg of Dexamethasone were used to infiltrate the fascial closure as well as all skin incisions. A total of 7ml Zynrelf was applied in the Hany wound. At this point, the abdomen was deflated, all ports were removed under direct vision, and no bleeding was noted from any of the port sites. The skin incisions were irrigated with saline and were closed with 4-0 absorbable monofilament sutures. Steri-Strips and OpSites were used to cover all incisions. The patient was extubated and was transferred in stable condition to the recovery room for further care. I was present and performed all burrows parts of the procedure. Ms. Luna was the virtual customer assistant. There were no residents to assist with this case. Nader Domínguez MD, PhD, FACS Surgeon: Albert Domínguez MD Anesthesia: GETA, local and other (TAP block and 7ml Zynrelef) Was an Out Of Town Collection Clerk used for this Procedure?: No Out Of Town Collection Clerk: Ruchi Luna Estimated blood loss (mL): 10 IV fluids (mL): 2,600 Urine output (mL): 0 (No Hendricks to record output) Pathology: other (Stomach) Condition: stable Disposition: PACU
--- NOTE | 2023-01-07 07:42 | PM.PNGS ---
Subjective Subjective Date of Service: 01/08/23 Interval history: Feels well. Mild incisional pain. He is tolerating phase 1 bariatric diet Physical Exam Vital Signs: Vital Signs: Last Vital Signs Temp 98.2 F 01/07/23 06:26 Pulse 81 01/07/23 06:26 Resp 16 01/07/23 06:26 BP 144/80 H 01/07/23 06:26 Pulse Ox 96 01/07/23 06:26 O2 Del Method Room Air 01/07/23 06:26 BMI result Body Mass Index 41.2 GI: Inspection: Yes normal to inspection, Yes incision (clean, dry and intact) and Yes obesity Palpation (GI): Soft to palpation Extrem: Right lower extremity: normal to inspection (no calf tenderness) Left lower extremity: normal to inspection (no calf tenderness) Objective Data Active Medications Albuterol Sulfate (Albuterol Sulfate (0.083%) 2.5 Mg/3 Ml Vial.Neb) 2.5 mg INHALE ONCE PRN PRN Reason: Shortness of Breath/Wheezing Lactated Ringer's (Lr) 1,000 mls @ 100 mls/hr IVCONT .Q10H BHAVIN Lactated Ringer's (Lr) 1,000 mls @ 999 mls/hr IV .Q1H1M BHAVIN Stop: 01/07/23 08:15 Last Admin: 01/07/23 07:15 Dose: 999 mls/hr Documented By: MORGAN Labs 12/23/22 12:21 12/23/22 12:21 Labs: Laboratory Results - last 24 hr 01/07/23 01/07/23 06:15 07:02 POC Glucose 93 COVID-19 (CARLYN) Negative COVID-19 Clin Com See Note Procedures Date of Service Date of Service: 01/08/23 Progress Note: A&P Assessment and plan (1) Morbid obesity: Status: Acute Assessment and Plan: s/p laparoscopic sleeve gastrectomy, lysis of adhesions and gastropexy Doing well Will check am labs and if OK the patient will be discharged home (2) Asthma: Status: Acute (3) Sleep apnea: Status: Acute (4) GERD (gastroesophageal reflux disease): Status: Acute (5) Steatosis, liver: Status: Acute (6) Liver fibrosis: Status: Acute (7) Hepatomegaly: Status: Acute (8) Congenital intra-abdominal adhesions: Status: Acute (9) S/P laparoscopic sleeve gastrectomy: Status: Acute Time Spent With Patient Time: Total time managing care of this patient today ____ minutes. Quality Stroke Does the patient have a stroke diagnosis?: No VTE Prior VTE?: No VTE Risk Level:: Surgical - moderate VTE Device Contraindication: N/A - Device Ordered VTE Drug Contraindication: Treatment Not Indicated
--- NOTE | 2023-01-07 10:13 | P.DS_ITS ---
DS: Providers Provider Date of Service: 01/08/23 Date of admission: 01/07/23 06:13 Primary care physician: Unknown Physician DS: Diagnosis Discharge Diagnosis (1) Morbid obesity: Status: Acute (2) Asthma: Status: Acute (3) Sleep apnea: Status: Acute (4) GERD (gastroesophageal reflux disease): Status: Acute (5) Steatosis, liver: Status: Acute (6) Liver fibrosis: Status: Acute (7) Hepatomegaly: Status: Acute (8) Congenital intra-abdominal adhesions: Status: Acute DS: Summary Hospital Course Hospital Course: ADMITTING DIAGNOSIS: morbid obesity, ALEXIS, DM, asthma, GERD DISCHARGE DIAGNOSIS: same, s/p laparoscopic sleeve gastrectomy PAST SURGICAL HISTORY: none PROCEDURE: upper endoscopy, laparoscopic sleeve gastrectomy DISCHARGE SUMMARY: History of Present Illness: The patient is a 47 year-old man with a BMI of 45.0 kg/m2 and associated co- morbidities as described above. The patient had extensive work-up, lost 22.2 lbs preoperatively and was electively scheduled for laparoscopic, possible open sleeve gastrectomy and gastropexy. Risks and complications of the surgery were discussed with the patient in advance, particularly the possibility of , pulmonary embolism, anastomotic leak, bleeding, bowel injury, GERD, cardiac, renal or pulmonary complications. The patient understood all the risks and was in agreement with the surgical plan. Hospital Course: The patient underwent an uneventful laparoscopic sleeve gastrectomy with gastropexy on the day of admission. Postoperatively, the patient was transferred to the surgical floor. The patient received IV Acetaminophen and IV dilaudid for pain control. Patient was started on bariatric phase 1 diet POD #0. On postoperative day one, the patient was feeling well without nausea, vomiting, fevers, or tachycardia. The patient had some mild incisional pain and the abdomen was soft. On the morning of postoperative day one, the patient was continued on 1 ounce of water or ice every half hour. During the day, the patient did fairly well, having some incisional pain, but able to ambulate adequately and to tolerate liquids well. Since the patient is doing well, we decided that the patient was ready to be discharged. The patient was given instructions to follow-up with me next week and to call my office for any fever over 101, persistent abdominal pain, nausea, vomiting, GERD, symptoms of DVT such as calf tenderness, or leg swelling, or pulmonary embolism such as chest pain or shortness of breath. The patient was also instructed to drink 40-60 ounces of liquids per day using the 1-ounce cups. The patient had been given prescriptions for Tylenol for pain, Zofran prn for nausea, and pantoprazole and carafate previously. The patient was encouraged to ambulate and use the incentive spirometer. The patient was allowed to shower, but no baths, and encouraged to stay active at home. All of these instructions were given to the patient personally. All questions were answered and the patient understood all instructions, the instructions were also given to the patient in print. Time Spent with Patient Time attestation: Total time managing care of this patient today ____ minutes. Discharge coordination time: Less than 30 minutes Quality: Safe Use of Opioids Does Pt have an Active Cancer Diagnosis on the Problem List?: No Quality: Stroke Does the patient have a stroke diagnosis?: No Physical Exam Vital Signs: Vital Signs: Last Vital Signs Temp 98.2 F 01/07/23 06:26 Pulse 81 01/07/23 06:26 Resp 16 01/07/23 06:26 BP 144/80 H 01/07/23 06:26 Pulse Ox 96 01/07/23 06:26 O2 Del Method Room Air 01/07/23 06:26 BMI result Body Mass Index 41.2 DS: Data Data Completed and Pending Pending studies at discharge: Pending at discharge 01/07/23 09:21 Surgical [PTH] Routine Labs on day of discharge: Laboratory Results - last 24 hr 01/07/23 01/07/23 06:15 07:02 POC Glucose 93 COVID-19 (CARLYN) Negative COVID-19 Clin Com See Note Discharge Plan Discharge Anticipated Discharge Date/Time: 01/08/23 10:00 Patient Disposition: Home, Self-Care Discharge Diagnosis: s/p sleeve gastrectomy Referrals: Physician,Unknown J [Physician] - 1 Week Discharge Medications: Continued pantoprazole 40 mg tablet,delayed release (DR/EC) 40 mg PO DAILY PRN (Reason: Acid Reflux) budesonide [Pulmicort] 0.5 mg/2 mL suspension for nebulization 0.25 mg inhalation BID PRN (Reason: Wheezing) albuterol sulfate 0.63 mg/3 mL solution for nebulization 0.63 mg inhalation QID PRN (Reason: Wheezing) sucralfate 100 mg/mL suspension 10 ml PO BID Qty: 400 2RF ondansetron 4 mg tablet,disintegrating 4 mg PO Q12H Qty: 20 0RF Rx Instructions: Only take one every 12 hours as needed if you have nausea Discontinued cholecalciferol (vitamin D3) 125 mcg (5,000 unit) capsule 125 mcg PO DAILY Qty: 30 2RF mecobalamin (vitamin B12) 1,000 mcg tablet,disintegrating 1,000 mcg sublingual DAILY Qty: 30 2RF Rx Instructions: place tablet under tongue and allow to dissolve for at least30 secs before swallowing metformin 500 mg tablet 500 mg PO BID ascorbic acid (vitamin C) 500 mg capsule, extended release 500 mg PO DAILY No Action calcium citrate 200 mg (950 mg) tablet 200 mg PO BID Qty: 60 11RF Discharge Orders: Discharge Order (Routine); Ordered 01/08/23 Ordered By: Albert Domínguez Activity on Discharge: No heavy lifting Stand Alone Forms: Patient Portal Discharge page Care Plan Goals: weight loss Health Concerns: morbid obesity Plan of Treatment: No tub baths, sex or returning to work until discussed at first post op appointment. No exercise, alcohol, tobacco or illegal drug use. Continue to use incentive spirometer hourly while awake. Walk in home for 5- 10 minutes every 2 hours during the first week. Continue phase 1 diet today and start phase 2 diet tomorrow morning. Follow all instructions in the bariatric handbook and call with any questions. 1. Please call your doctor or come back to the emergency room should any new symptoms arise. 2. You will receive a courtesy call from [facility] 24-48 hours after discharge. 3. Activity: abstain from alcohol, practice limited stair climbing, no bending, no driving, no exercise, no illicit substances, no lifting, no sex, no tub bath, no work. 4. Diet: continue as discussed with bariatric team.. 5. Dressing Change/Wound Care: Do not change or remove surgical dressings unless they are wet or soiled. 6. Call your doctor if: - Your temperature exceeds 101.5 F - You experience excessive pain or swelling - You have an unexpected reaction to medication - You have excessive bleeding - You experience continued vomiting/nausea - Your incision begins to separate - Your incision shows signs of infection such as increased redness, swelling, excessive pain, heat, or drainage (light blood or clear fluid is normal) 7. General instructions: No lifting greater than 5 lbs for the next 4 weeks[address] driving within 24 hours of taking narcotic pain medications. If you do not move your bowels in the next 2 days, please take milk of magnesia over the counter. Please follow the post op diet and do not advance your diet until you are seen in the office in about 2 weeks. Please walk around your home every hour or two to prevent blood clots from forming in your legs. You do not need to wake from sleeping to walk. Please sleep in a bed or couch to prevent kinking at the hips and knees. Please take your incentive spirometer (your lung tree doctor) home with you and use it for the next few days to prevent pneumonias. You may shower, no hot tubs, baths or swimming pools. Please call the office with any questions or concerns such as increasing abdominal pain, fever, chills, shortness of breath, chest pain, leg pain or swelling, or redness or drainage from your incisions. Do not hesitate to contact the office with any questions at . The patient's medical history has been reviewed and they are considered low risk for post op DVT and therefore DVT prophylaxis is not considered necessary. Travel after surgery was reviewed. The patient has not disclosed any travel plans during the first 30 days after surgery and they have been advised that within the first 30 days after surgery any bus, plane, train or car travel over 2 hours in duration is contraindicated due to the possibility of developing blood clots from immobility. Any travel, needs to include periods of ambulation of 10 minutes in duration every 2 hours. The patient was instructed to discuss any plans for travel during this period with their bariatric surgeon. Assessment: stable post op sleeve gastrectomy Discharge Date/Time: 01/08/23 10:15
[2023-01-07] MEDS: HYDROmorphone HCl 0.5 MG/0.5 ML SYRINGE 0.25 MG IVPUSH ×2 (10:44→10:59)
[2023-01-07] MEDS: Lactated Ringers 1,000 ML 100 ML IVCONT ×3 (11:22→23:26)
[2023-01-07 11:26] LABS: Hematocrit 34.4 % (42.0-52.0); Hemoglobin 11.3 g/dl (14.0-18.0)
[2023-01-07 11:38] LABS: Anion Gap 15 (12-20); Blood Urea Nitrogen 11 mg/dL (9-16); Calcium 8.8 mg/dL (8.4-10.2); Carbon Dioxide 23 mmol/L (22-29); Chloride 104 mmol/L (96-108); Creatinine Clr Calc Pharmacy 149.2; Estimated Glomerular Filt Rate > 60; Glucose Random 150 mg/dL (60-115); Potassium 4.3 mmol/L (3.3-5.1); Sodium 138 mmol/L (135-145)
[2023-01-07] MEDS: Famotidine/PF 20 MG/2 ML VIAL IVPUSH ×2 (12:52→21:57)
[2023-01-07] MEDS: ceFAZolin Sodium/Dextrose,Iso 2 GM/50 ML PIGGYBACK IV (13:28)
[2023-01-07] MEDS: Acetaminophen 1,000 MG/100 ML PIGGYBACK 400 MG IV ×2 (17:16→23:27)
[2023-01-08] MEDS: Lactated Ringers 1,000 ML 100 ML IVCONT (00:02)
[2023-01-08 04:00] VITALS: BP 120/62; PULSE 61; RESP 18; TEMP 36.6; O2SAT 95
[2023-01-08 06:01] LABS: Glucose, Whole Blood 126 mg/dL (60-115)
[2023-01-08] MEDS: Acetaminophen 1,000 MG/100 ML PIGGYBACK 400 MG IV (06:08)
[2023-01-08 06:32] LABS: MANUAL DIFF FLAG NO
[2023-01-08 06:55] LABS: Anion Gap 16 (12-20); Blood Urea Nitrogen 11 mg/dL (9-16); Calcium 9.2 mg/dL (8.4-10.2); Carbon Dioxide 24 mmol/L (22-29); Chloride 103 mmol/L (96-108); Creatinine Clr Calc Pharmacy 136.3; Estimated Glomerular Filt Rate > 60; Glucose Random 111 mg/dL (60-115); Sodium 139 mmol/L (135-145)
[2023-01-08 07:02] LABS: Basophils Percent Auto 0.1 % (0-2); Hematocrit 43.9 % (42.0-52.0); Hemoglobin 14.4 g/dl (14.0-18.0); Imm Gran Abs Auto 0.09 X10*3/uL (0.00-0.03); Imm Gran Pct Auto 0.6 % (0.0-0.4); Lymphocytes Absolute Auto 2.1 X10*3/uL (1.2-4.9); Lymphocytes Percent Auto 14.1 % (20-40); Mean Corpuscular HGB Conc 32.8 g/dl (31.0-36.0); Mean Corpuscular Hemoglobin 29.2 pg (27.0-33.0); Mean Platelet Volume 10.6 fL (9.4-12.4); Monocytes Absolute Auto 1.1 X10*3/uL (0.1-1.2); Monocytes Percent Auto 7.5 % (2-11); Neutrophils Absolute Auto 11.4 x10*3/uL (2.0-8.3); Neutrophils Percent Auto 77.7 % (45-73); Platelet Count 306 X10*3/uL (160-400); Red Blood Count 4.93 X10*6/uL (4.60-5.80); Red Cell Distribution Width 12.9 % (11.0-16.0); White Blood Count 14.7 X10*3/uL (4.8-10.8)
[2023-01-08 07:13] VITALS: BP 131/68; PULSE 67; RESP 18; TEMP 36.7; O2SAT 93
[2023-01-08] MEDS: Famotidine/PF 20 MG/2 ML VIAL IVPUSH (07:20)
--- NOTE | 2023-01-08 08:53 | MHC.CM.PN ---
CM MET WITH PT AT BEDSIDE. PT LIVES IN [facility] BUT STAYING WITH MOTHER LOCALLY WHILE RECOVERS. INDEPENDENT AT BASELINE. USES C-PAP AT NIGHT. DECLINES DOING A HCP AT THIS TIME. + COVID VAX X2 PCP DR.N. FLANAGAN IN [facility]. DP: PT HAS BEEN MEDICALLY CLEARED FOR DC HOME, NO SERVICES. PT HAS OWN RIDE HOME.
--- NOTE | 2023-01-09 10:53 | HO.POSTANES ---
Post Anesthesia Evaluation Post Anesthesia Evaluation Date of Service: 01/08/23 Vital Signs: 0700: 131/68, 67, 18, 98.1F, 93%RA Anesthesia: General Endotracheal-GETA Mental Status: Awake Pain Control: Satisfactory Nausea/Vomiting: None Hydration: Adequate Anesthesia-Related Issues: No Anes. Related Issues
== END 2023-01-08 10:15 | disposition home or self-care (01) | DRG 620 ==
LOC: HO.SSSA 10:13 → HO.S3 10:15
PROVIDERS: Physician Assistant; Admitting Provider Surgery; PCP Internal Medicine Cardiovascular Disease; Visit Provider Surgery
PROC: 0DB64Z3 Excision of Stomach, Percutaneous Endoscopic Approach, Vertical (ICD-10-PCS; CPT 43845; principal; 2023-01-07 07:30)
DX: E66.01 Morbid (severe) obesity due to excess calories (principal); Q43.3 Congenital malformations of intestinal fixation; J45.909 Unspecified asthma, uncomplicated; K74.00 Hepatic fibrosis, unspecified; G47.33 Obstructive sleep apnea (adult) (pediatric); R73.03 Prediabetes; Z68.41 Body mass index [BMI] 40.0-44.9, adult; Z20.822 Contact with and (suspected) exposure to COVID-19; Z79.899 Other long term (current) drug therapy
CPT/HCPCS: 36415; 80048; 80053; 80061; 82947; 83036; 83525; 84443; 85014; 85018; 85025; 85610; 85730; 86140; 86850; 86900; 86901; 87635; 88307; 88342; A4649; C9088; C9145; J0131; J0690; J1100; J1170; J2250; J2370; J2405; J2795; J3010

== ENCOUNTER → 2023-01-14 10:29 | Outpatient (BNVA) | payer OTHER, BC, SELFPAY | PROVIDERS: Visit Provider Physician Assistant ==

== ENCOUNTER → 2023-02-03 10:07 | Outpatient (BNVA) | payer OTHER, BC, SELFPAY | PROVIDERS: PCP Internal Medicine Cardiovascular Disease; Visit Provider Physician Assistant Surgical ==

== ENCOUNTER 2023-02-24 12:37 | Outpatient (AMB) | payer OTHER, BC, SELFPAY ==
--- NOTE | 2023-02-24 12:06 | MHC.OFFVISWM ---
Intake VS Expanded 02/24/23 12:07 Height 5 ft 7 in Weight 215 lb 8 oz BMI 33.7 Intake Visit Reasons: (tv) PO LSG 01/07/23 Cruise Guide Required: No Allergies No Known Allergies Allergy (Verified 02/03/23 14:34) Medication List - Last Reconciled 02/24/23 by BERYL Yañez albuterol sulfate 0.63 mg inhalation QID PRN budesonide (Pulmicort) 0.25 mg inhalation BID PRN calcium citrate 200 mg PO BID cetirizine (All Day Allergy (cetirizine)) 10 mg PO DAILY PRN cholecalciferol (vitamin D3) 125 mcg PO DAILY pantoprazole 40 mg PO DAILY sucralfate 10 mL PO BID HPI HPI Comments History of Present Illness Details This?a?47?yo male who is s/p LSG without hiatal hernia repair on?01/07/23. Presents for 6 week post op visit. Weight today is 215.8 pounds, with a BMI of 33.8.? There has been a 71.8 pound weight loss,(initial weight 287.6 pounds) since starting the program on 04/29/23 reflecting a 24.9% total body weight loss and a weight loss of 46.7 pounds since surgery (operative weight 262.5 pounds) reflecting a 17.7% TBWL since surgery.? No complaints of nausea, emesis, abdominal pain or reflux. Reports infrequent but normal bowel movements every 1-2 with the use of fiber gummies and coalce.? States he dis well with the food and wants to advance as he is able. Present meal plan includes: Pure Protein 1 scoop in 8 oz almond milk, 10-12, 2-4 4 forks protein/4 forks veg at 6-8 pm 60-70 oz water ? Exercise routine includes: treadmill 30 min 7 days per week.?1500 per week [facility] Medical History (Updated 02/03/23 @ 15:25 by Torin Hooper CNP) Asthma GERD (gastroesophageal reflux disease) Morbid obesity Prediabetes Sleep apnea Surgical History H/O colonoscopy History of esophagogastroduodenoscopy (EGD) S/P laparoscopic sleeve gastrectomy Family History Mother HTN (hypertension) Father HTN (hypertension) Diabetes Son No problems noted. Son No problems noted. Social History Household Members: Family Housing: Apartment Are you a primary critical care unit nurse to a significant other at home: No Do you presently have visiting nurse or other home services: No Alcohol intake: never Patient Tobacco Use Status: Never used Tobacco Advance Directives Date on File: 11/04/22 service: No Current occupational status: employed Assessment & Plan Assessment & Plan (1) Obesity (BMI 30-39.9): Code(s): E66.9 - Obesity, unspecified Plan: new meal plan: Pure Protein 1 scoop in 8 oz almond milk, 10-12, 2-4 6 forks protein/6 forks veg at 6-8 pm May add weights to exercise RTC one month Medications: Discontinued pantoprazole 40 mg PO DAILY 30 tabs 2RF K21.9 - Gastro-esophageal reflux disease without esophagitis Telehealth Telehealth Location of provider rendering services: practice address Location of patient: other Patient Identification confirmed using: Name, : Yes Telehealth method: video Patient verbally consented to treatment: Yes Patient verbally consented to billing insurance company: Yes Patient informed of any privacy concerns related to visit: Yes Minutes spent on Phone/Video with Pt.: 15 Coding Level of Care Code Global (76361) Diagnoses Obesity (BMI 30-39.9) E66.9
[2023-02-24 12:07] VITALS: BMI 33.7
== END 2023-02-24 12:56 | disposition home or self-care (01) ==
LOC: HO.HBS 12:37
PROVIDERS: PCP Internal Medicine Cardiovascular Disease; Visit Provider Physician Assistant Surgical
DX: E66.9 Obesity, unspecified (principal); Z68.33 Body mass index [BMI] 33.0-33.9, adult; Z90.3 Acquired absence of stomach [part of]; Z98.84 Bariatric surgery status
CPT/HCPCS: 99024

== ENCOUNTER → 2023-02-24 12:37 | Outpatient (BNVA) | payer OTHER, BC, SELFPAY | PROVIDERS: PCP Internal Medicine Cardiovascular Disease; Visit Provider Physician Assistant Surgical ==

== ENCOUNTER 2023-04-16 08:32 | Outpatient (AMB) | payer OTHER, BC, SELFPAY ==
--- NOTE | 2023-04-16 08:34 | MHC.OFFVISWM ---
Intake VS Expanded 04/16/23 08:44 Height 5 ft 7 in Weight 200 lb 3.2 oz BMI 31.4 BP 113/68 Blood Pressure Location Rt brachial Blood Pressure Position Sitting Pulse 59 Pulse Source Pulse Oximeter Temp 96.8 F Temperature Source Tympanic Pulse Oximetry 98 Oxygen Delivery Method Room Air Body Fat 49.2 Body Fat Percentage 24.6 Free Fat Mass 151.0 Muscle Mass 143.6 Visceral Mass 12.0 Water Mass 111.6 BMR 2,001 Intake Visit Reasons: (ov) PO LSG 01/07/23 Branch Services Manager Required: No Allergies No Known Allergies Allergy (Verified 04/16/23 08:34) Medication List - Last Reconciled 04/16/23 by BERYL Yañez albuterol sulfate 0.63 mg inhalation QID PRN budesonide (Pulmicort) 0.25 mg inhalation BID PRN calcium citrate 200 mg PO BID cetirizine (All Day Allergy (cetirizine)) 10 mg PO DAILY PRN cholecalciferol (vitamin D3) 125 mcg PO DAILY [fusion MVI PO DAILY] HPI HPI Comments History of Present Illness Details This?a?47?yo male who is s/p LSG without hiatal hernia repair on?01/07/23. Presents for 12 week post op visit. Weight today is 200.2 pounds, with a BMI of 31.4.? There has been a 87.4 pound weight loss,(initial weight 287.6 pounds) since starting the program on 04/29/23 reflecting a 30.3% total body weight loss and a weight loss of 62.3 pounds since surgery (operative weight 262.5 pounds) reflecting a 23.7% TBWL since surgery.? No complaints of nausea, emesis, abdominal pain or reflux. Reports infrequent but normal bowel movements every 1-2 with the use of fiber gummies and coalce.? Just returned from [place] on a missions trip an he states he was able to climb the 100 or so steps upp a steep mountainside without stopping and he felt awesome at the top. Wants to have another meal Present meal plan includes: Pure Protein 1 scoop in 8 oz almond milk, 10-12, 2-4 6 forks protein/6 forks veg at 6-8 pm 48 oz water ? Exercise routine includes: weight lifting and cardio treadmill 30 min 3-4 days per week.?300-350 calories per session? PFSH Medical History (Updated 02/03/23 @ 15:25 by Torin Hooper CNP) Asthma GERD (gastroesophageal reflux disease) Morbid obesity Prediabetes Sleep apnea Surgical History H/O colonoscopy History of esophagogastroduodenoscopy (EGD) S/P laparoscopic sleeve gastrectomy Family History Mother HTN (hypertension) Father HTN (hypertension) Diabetes Son No problems noted. Son No problems noted. Social History Household Members: Family Housing: Apartment Are you a primary palliative care specialist to a significant other at home: No Do you presently have visiting nurse or other home services: No Alcohol intake: never Patient Tobacco Use Status: Never used Tobacco Advance Directives Date on File: 11/04/22 service: No Current occupational status: employed Assessment & Plan Assessment & Plan (1) Obesity (BMI 30-39.9): Code(s): E66.9 - Obesity, unspecified Plan: change meal plan Pure Protein 1 scoop in 8 oz almond milk, 10-12, 6 forks/6 forks. 6 forks protein/6 forks veg at 6-8 pm Increase exercise to 4-5 days cardio, continue weight. rtc 3 months Medications: Discontinued pantoprazole 40 mg PO DAILY 30 tabs 2RF K21.9 - Gastro-esophageal reflux disease without esophagitis Coding Level of Care Code Est Pt Level 3 (03358) Diagnoses Obesity (BMI 30-39.9) E66.9
[2023-04-16 08:44] VITALS: BP 113/68; PULSE 59; TEMP 36; O2SAT 98; BMI 31.4
== END 2023-04-16 09:08 | disposition home or self-care (01) ==
PROVIDERS: PCP Internal Medicine Cardiovascular Disease; Visit Provider Physician Assistant Surgical
DX: E66.9 Obesity, unspecified (principal)
CPT/HCPCS: 99213

== ENCOUNTER → 2023-04-16 08:32 | Outpatient (BNVA) | payer OTHER, BC, SELFPAY | PROVIDERS: PCP Internal Medicine Cardiovascular Disease; Visit Provider Physician Assistant Surgical ==

== ENCOUNTER 2023-07-14 08:34 | Outpatient (AMB) | payer OTHER, BC, SELFPAY ==
--- NOTE | 2023-07-14 08:38 | MHC.OFFVISWM ---
Intake VS Expanded 07/14/23 08:41 BP 122/61 Blood Pressure Location Rt brachial Blood Pressure Position Sitting Pulse 74 Pulse Source Pulse Oximeter Temp 97.4 F Temperature Source Tympanic Pulse Oximetry 98 Oxygen Delivery Method Room Air Height 5 ft 7 in Weight 187 lb 9.6 oz BMI 29.4 Body Fat % 22.8 Body Fat Mass 42.8 Fat Free Mass 144.6 Visceral Fat Rating 11.0 Body Water % 56.4 Body Water Mass 105.6 Muscle Mass/Score 137.4 Basal Metabolic Rate/Score 1,905 Intake Visit Reasons: (OV ) PO LSG 01/07/23 Childcare Provider Required: No Allergies No Known Allergies Allergy (Verified 07/14/23 08:40) Medication List - Last Reconciled 07/14/23 by BERYL Yañez albuterol sulfate 0.63 mg inhalation QID PRN budesonide (Pulmicort) 0.25 mg inhalation BID PRN calcium citrate 200 mg PO BID cetirizine (All Day Allergy (cetirizine)) 10 mg PO DAILY PRN cholecalciferol (vitamin D3) 125 mcg PO DAILY [fusion MVI PO DAILY] HPI HPI Comments History of Present Illness Details This?a?47?yo male who is s/p LSG without hiatal hernia repair on?01/07/23. Presents for 6 month post op visit. Weight today is 187.6 pounds, with a BMI of 29.4.? There has been a 100 pound weight loss,(initial weight 287.6 pounds) since starting the program on 04/29/23 reflecting a 34.7% total body weight loss and a weight loss of 74.9 pounds since surgery (operative weight 262.5 pounds) reflecting a 28.5% TBWL since surgery.? No complaints of nausea, emesis, abdominal pain or reflux. Reports infrequent but normal bowel movements every 1-2 with the use of fiber gummies and coalce.? Since april he has been doing very well. Following the meal plan and exercise plans. As he lives in the [facility] area, he had labs done however we have not yet received them. Present meal plan includes: Pure Protein 1 scoop in 8 oz almond milk, 10-12, (only doing qod) 6 forks/6 forks. 6 forks protein/6 forks veg at 6-8 pm 32-40 oz water ? Exercise routine includes: weight lifting and cardio treadmill 30 min 3-5 days per week.?300-350 calories per session? Any post op complications: None ALEXIS: Improved DM: Never HTN: Never Hyperlipidemia: Never GERD:?0-5 scale ??0 = no symptoms ??1 = symptoms noticeable but not bothersome 2 =symptoms bothersome but not daily ? 3 = symptoms bothersome and daily 4 = symptoms affect daily activities 5 = symptoms are incapacitating, unable to do daily activities ? How bad is the heartburn: 0 ? Heartburn while lying down: 0 ? Heartburn when standing up: 0 ? Heartburn after meals: 0 ? Does heartburn change your diet: 0 ? Does heartburn wake you up from sleep: 0 ? Do you have difficulty swallowin ? Do you have pain with swallowin ? If you take medicine for your reflux, does this affect your daily life: 0 Satisfaction with present condition - satisfied or not satisfied: Satisfied [facility] Medical History Prediabetes GERD (gastroesophageal reflux disease) Sleep apnea Asthma Morbid obesity Surgical History S/P laparoscopic sleeve gastrectomy History of esophagogastroduodenoscopy (EGD) H/O colonoscopy Family History Mother HTN (hypertension) Father HTN (hypertension) Diabetes Son No problems noted. Son No problems noted. Social History Household Members: Family Housing: Apartment Are you a primary primary care pediatrician to a significant other at home: No Do you presently have visiting nurse or other home services: No Alcohol intake: never Patient Tobacco Use Status: Never used Tobacco Advance Directives Date on File: 11/04/22 service: No Current occupational status: employed Review of Systems Const All systems reviewed & are unremarkable except as noted in HPI and below Physical Exam Const General: cooperative and no acute distress Orientation/consciousness: patient oriented x3 Resp Effort & Inspection: normal respiratory effort Auscultation: clear to auscultation bilaterally Cardio Rate: regular rate Rhythm: regular rhythm GI Inspection: Yes normal to inspection and Yes incision (well healed) Palpation (GI): Soft to palpation and no masses Neuro General: patient oriented x3 Assessment & Plan Assessment & Plan (1) Overweight (BMI 25.0-29.9): Code(s): E66.3 - Overweight Plan: Overall doing well. Recommend increase exercise to 45 minutes on the treadmill with a goal of 400-450 calories daily. Continue current meal plan without skipping the protein shake. He will contact the lab in [place] to fax us the results. Return to clinic in 6 weeks. Coding Level of Care Code Est Pt Level 3 (05187) Diagnoses Overweight (BMI 25.0-29.9) E66.3
[2023-07-14 08:41] VITALS: BP 122/61; PULSE 74; TEMP 36.3; O2SAT 98; BMI 29.4
== END 2023-07-14 09:06 | disposition home or self-care (01) ==
PROVIDERS: PCP Internal Medicine Cardiovascular Disease; Visit Provider Physician Assistant Surgical
DX: E66.3 Overweight (principal)
CPT/HCPCS: 99213

== ENCOUNTER → 2023-07-14 08:34 | Outpatient (BNVA) | payer OTHER, BC, SELFPAY | PROVIDERS: PCP Internal Medicine Cardiovascular Disease; Visit Provider Physician Assistant Surgical ==

== ENCOUNTER 2023-08-25 09:05 | Outpatient (AMB) | payer OTHER, BC, SELFPAY ==
--- NOTE | 2023-08-25 09:06 | MHC.OFFVISWM ---
Intake VS Expanded 08/25/23 09:10 BP 116/69 Blood Pressure Location Rt brachial Blood Pressure Position Sitting Pulse 60 Pulse Source Pulse Oximeter Temp 97.9 F Temperature Source Temporal Artery Scan Pulse Oximetry 99 Oxygen Delivery Method Room Air Height 5 ft 7 in Weight 183 lb 9.6 oz BMI 28.8 Body Fat % 26.4 Body Fat Mass 48.6 Fat Free Mass 135.0 Visceral Fat Rating 6.0 Body Water % 52.4 Body Water Mass 96.2 Muscle Mass/Score 128.0 Basal Metabolic Rate/Score 1,787 Intake Visit Reasons: (OV) PO LSG 01/07/23 Service Member Required: No Allergies No Known Allergies Allergy (Verified 08/25/23 09:09) Medication List - Last Reconciled 08/25/23 by BERYL Yañez albuterol sulfate 0.63 mg inhalation QID PRN budesonide (Pulmicort) 0.25 mg inhalation BID PRN calcium citrate 200 mg PO BID cetirizine (All Day Allergy (cetirizine)) 10 mg PO DAILY PRN cholecalciferol (vitamin D3) 125 mcg PO DAILY [fusion MVI PO DAILY] HPI HPI Comments History of Present Illness Details This?a?47?yo male who is s/p LSG without hiatal hernia repair on?01/07/23. Presents for 7.5 month post op visit. Weight today is 183.6 pounds, with a BMI of 28.8.? There has been a 104 pound weight loss,(initial weight 287.6 pounds) since starting the program on 04/29/23 reflecting a 36.1% total body weight loss and a weight loss of 78.9 pounds since surgery (operative weight 262.5 pounds) reflecting a 30% TBWL since surgery.? No complaints of nausea, emesis, abdominal pain or reflux. Reports infrequent but normal bowel movements every 1-2 with the use of fiber gummies and coalce.? We did receive the labs that he had obtained in [place], as he lives in the [facility] area. These were from 07/08/2023, review shows no significant abnormalities. He freddie no concerns at this time. Energy level is good. He has been very busy with his work and has been working 2 jobs and has not been able to exercise as much. Now the busy season has passed he is now going to be able t return to the gym. Present meal plan includes: Pure Protein 1 scoop in 8 oz almond milk, 10-12, 6 forks/6 forks. 6 forks protein/6 forks veg at 6-8 pm 32-40 oz water ? Exercise routine includes: weight lifting and cardio treadmill 30 min 4days per week.?300-350 calories per session? PFSH Medical History Prediabetes GERD (gastroesophageal reflux disease) Sleep apnea Asthma Morbid obesity Surgical History S/P laparoscopic sleeve gastrectomy History of esophagogastroduodenoscopy (EGD) H/O colonoscopy Family History Mother HTN (hypertension) Father HTN (hypertension) Diabetes Son No problems noted. Son No problems noted. Social History Household Members: Family Housing: Apartment Are you a primary managed care liaison to a significant other at home: No Do you presently have visiting nurse or other home services: No Alcohol intake: never Patient Tobacco Use Status: Never used Tobacco Advance Directives Date on File: 11/04/22 service: No Current occupational status: employed Physical Exam Const General: healthy appearing and no acute distress Resp Effort & Inspection: normal respiratory effort Auscultation: clear to auscultation bilaterally Cardio Rate: regular rate Rhythm: regular rhythm GI Auscultation: normal bowel sounds Extrem General: Yes normal to inspection Assessment & Plan Assessment & Plan (1) Overweight (BMI 25.0-29.9): Code(s): E66.3 - Overweight Plan: Patient has been making good progress. 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 Things have slowed down now and he is able to return to the gym. His labs from 07/08/2023 have no significant discrepancies. He will continue current treatment plans and meal plan. He will increase exercise to 4 days per week. Was advised that once his weight goes below 180 lb, to decrease his shake scoop from 1 scoop to 1/2 scoop. He will return to the office in approximately 6 weeks. Coding Level of Care Code Est Pt Level 3 (56768) Diagnoses Overweight (BMI 25.0-29.9) E66.3 Time Spent (min) 25
[2023-08-25 09:10] VITALS: BP 116/69; PULSE 60; TEMP 36.6; O2SAT 99; BMI 28.8
== END 2023-08-25 09:31 | disposition home or self-care (01) ==
PROVIDERS: PCP Internal Medicine Cardiovascular Disease; Visit Provider Physician Assistant Surgical
DX: E66.3 Overweight (principal)
CPT/HCPCS: 99213

== ENCOUNTER → 2023-08-25 09:05 | Outpatient (BNVA) | payer OTHER, BC, SELFPAY | PROVIDERS: PCP Internal Medicine Cardiovascular Disease; Visit Provider Physician Assistant Surgical ==

== ENCOUNTER 2023-08-25 10:18 | Outpatient (AMB) | payer OTHER, BC, SELFPAY ==
--- NOTE | 2023-08-25 10:29 | MHC.OFFVIS ---
Intake Vital Signs 08/25/23 10:30 Height 5 ft 7 in Weight 183 lb 9 oz BMI 28.7 Intake Visit Reasons: 6m follow up ALEXIS-LvM Intake Note: Patients presents for 6 months F/U ALEXIS. Allergies No Known Allergies Allergy (Verified 08/25/23 10:32) HPI HPI Comments History of Present Illness Details 48 y/o male patient presents for follow up of ALEXIS on CPAP. The home sleep study result was significant for severe degree of sleep apnea. The AHI was 29/hr and oxygen janet was 82%. The CPAP compliance report (07/25/23-08/23/23) reviewed with the patient. He is on APAP [id number]. The usage days 33% and the average usage hours 5 hours. The max pressure was 10.3 and the AHI was 1.6/hr. Pt had issue with his CPAP mask, it is too big now, he lost about 100 lb since the sleep study. He tried medium size mask but the CPAP shows red face. He is not sure it is from leaking too much or not enough using it. Pt had a bariatric surgery on January 07, and lost about 100 lb since the wt management started. [facility] Medical History Prediabetes GERD (gastroesophageal reflux disease) Sleep apnea Asthma Morbid obesity Surgical History S/P laparoscopic sleeve gastrectomy History of esophagogastroduodenoscopy (EGD) H/O colonoscopy Family History Mother HTN (hypertension) Father HTN (hypertension) Diabetes Son No problems noted. Son No problems noted. Social History Household Members: Family Housing: Apartment Are you a primary career representative to a significant other at home: No Do you presently have visiting nurse or other home services: No Alcohol intake: never Patient Tobacco Use Status: Never used Tobacco Advance Directives Date on File: 11/04/22 service: No Current occupational status: employed Review of Systems Const All systems reviewed & are unremarkable except as noted in HPI and below ENT Reports Normal hearing present Neuro Reports Normal hearing present Physical Exam Vital Signs: BMI result Body Mass Index 28.7 Const General: cooperative Orientation/consciousness: patient oriented x3 Limitations: no limitations HEENT Throat: Yes other (mallampati grade 4) Neck Neck: Yes full ROM and Yes supple Resp Effort & Inspection: normal respiratory effort and able to speak in complete sentences Neuro General: patient oriented x3, gait normal and moves all extremities Cranial nerves: Yes Bilaterally intact EOM present, Yes Nystagmus not present, Yes Normal facial strength present, Yes Midline tongue present, Yes Symmetric palate elevation present, Yes Normal hearing present, Yes Ability to bilaterally rotate head present and Yes Ability to bilaterally elevate shoulders present Cognition (Neuro): normal cognition Gait exam (Neuro): Normal gait present Motor exam (neuro): 5/5 motor strength present throughout, Pronator motor function not present and no tremor noted Psych Appearance: grossly normal Mental Status: mental status grossly normal Speech and movement: Normal speech and movement present Affect: normal affect Attitude: cooperative Assessment & Plan Assessment & Plan (1) Sleep apnea: Comment: A severe degree of sleep apnea. The AHI was 29/hr and oxygen janet was 82%. Code(s): G47.30 - Sleep apnea, unspecified Plan Advised patient to continue to use APAP [id number] as patient experiences good clinical effects. Stressed compliance, use CPAP nightly and more than 4 hours. May try CPAP mask liner. Continue to do daily exercise and manage diet to maintain healthy wt. Will repeat the home sleep study in November. Coding Level of Care Code Est Pt Level 3 (42433) Diagnoses Sleep apnea G47.30
[2023-08-25 10:30] VITALS: BMI 28.7
== END 2023-08-25 10:49 | disposition home or self-care (01) ==
PROVIDERS: PCP Internal Medicine Cardiovascular Disease; Visit Provider Nurse Practitioner Family
DX: G47.30 Sleep apnea, unspecified (principal)
CPT/HCPCS: 99213

== ENCOUNTER 2023-11-10 09:29 | Outpatient (AMB) | payer OTHER, BC, SELFPAY ==
--- NOTE | 2023-11-10 09:31 | A.OFFVIS_ITS ---
Intake VS Expanded 11/10/23 09:48 BP 117/58 L Blood Pressure Location Rt brachial Blood Pressure Position Sitting Pulse 74 Pulse Source Pulse Oximeter Temp 97.9 F Temperature Source Temporal Artery Scan Pulse Oximetry 100 Oxygen Delivery Method Room Air Height 5 ft 7 in Weight 185 lb 12.8 oz BMI 29.1 Body Fat % 21.3 Body Fat Mass 39.4 Fat Free Mass 146.2 Visceral Fat Rating 5.0 Body Water % 56.1 Body Water Mass 104.0 Muscle Mass/Score 138.8 Basal Metabolic Rate/Score 1,919 Intake Visit Reasons: (OV) PO LSG 01/07/23 Allergies No Known Allergies Allergy (Verified 11/10/23 09:35) HPI HPI Comments History of Present Illness Details This?a?47?yo male who is s/p LSG without hiatal hernia repair on?01/07/23. Presents for 10 month post op visit. Weight today is 185.8 pounds, with a BMI of 29.1.? There has been a 101.8 pound weight loss,(initial weight 287.6 pounds) since starting the program on 04/29/23 reflecting a 35.3% total body weight loss and a weight loss of 76.7 pounds since surgery (operative weight 262.5 pounds) reflecting a 29.2% TBWL since surgery.? No complaints of nausea, emesis, abdominal pain or reflux. Reports infrequent but normal bowel movements every 1-2 with the use of fiber gummies and coalce.? We did receive the labs that he had obtained in [place], as he lives in the [facility] area. he feel sgreat but not able to do much exercise due to increased responsibility at work. He expects to decrease work load this month. He states that he has noticed an intermittent rash to the skin folds of his abdomen. This is somewhat uncomfortable and itching and burning. He has had to adjust his daily hygiene to include washing the area underneath the abdominal fold 4-5 times per day. Present meal plan includes: Pure Protein 1/2 scoop in 8 oz almond milk, 10-12, 6 forks/6 forks. noon 6 forks protein/6 forks veg at 6-8 pm 50-60 oz water? Exercise routine includes: weight lifting and cardio treadmill 30 min 4days per week.?300-350 calories per session? PFSH Medical History Prediabetes GERD (gastroesophageal reflux disease) Sleep apnea Asthma Morbid obesity Surgical History S/P laparoscopic sleeve gastrectomy History of esophagogastroduodenoscopy (EGD) H/O colonoscopy Family History Mother HTN (hypertension) Father HTN (hypertension) Diabetes Son No problems noted. Son No problems noted. Social History Household Members: Family Housing: Apartment Are you a primary health care / medical job titles to a significant other at home: No Do you presently have visiting nurse or other home services: No Alcohol intake: never Patient Tobacco Use Status: Never used Tobacco Advance Directives Date on File: 11/04/22 service: No Current occupational status: employed Physical Exam Const General: healthy appearing and no acute distress Resp Effort & Inspection: normal respiratory effort Auscultation: clear to auscultation bilaterally Cardio Rate: regular rate Rhythm: regular rhythm GI Auscultation: normal bowel sounds Skin Other: Grade 2 pannus with evidence of healing irritation at the skin fold Extrem General: Yes normal to inspection Assessment & Plan Assessment & Plan (1) Overweight (BMI 25.0-29.9): Code(s): E66.3 - Overweight Plan: Continue current meal plan. Encouraged to increase exercise as he is able given the busy work season. He states that this should improve this week. Additionally, continue current meal plan and return to the office for 1 year follow-up. (2) Excess skin: Code(s): L98.7 - Excessive and redundant skin and subcutaneous tissue Plan: Given prescription for clotrimazole. Encouraged to create a barrier between the skin folds with clothing as he is able and alert me should he have any worsening symptoms. Medications: New clotrimazole 1% (Antifungal (clotrimazole)) 1 appl topical BID 45 grams 2RF Coding Level of Care Code Est Pt Level 3 (10731) Diagnoses Overweight (BMI 25.0-29.9) E66.3 Excess skin L98.7
[2023-11-10 09:48] VITALS: BP 117/58; PULSE 74; TEMP 36.6; O2SAT 100; BMI 29.1
== END 2023-11-10 09:54 | disposition home or self-care (01) ==
PROVIDERS: PCP Internal Medicine Cardiovascular Disease; Referring Provider Internal Medicine Cardiovascular Disease; Visit Provider Physician Assistant Surgical
DX: E66.3 Overweight (principal); L98.7 Excessive and redundant skin and subcutaneous tissue
CPT/HCPCS: 99213

== ENCOUNTER → 2023-11-10 09:29 | Outpatient (BNVA) | payer OTHER, BC, SELFPAY | PROVIDERS: PCP Internal Medicine Cardiovascular Disease; Visit Provider Physician Assistant Surgical ==

== ENCOUNTER 2024-07-21 08:30 | Outpatient (AMB) | payer OTHER, BC, SELFPAY ==
--- NOTE | 2024-07-21 08:32 | A.OFFVIS_ITS ---
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 Presents for 18 month post op visit. Weight today is 186 pounds, with a BMI of 29.1.? There has been a 101.8 pound weight loss,(initial weight 287.6 pounds) since starting the program on 04/29/23 reflecting a 35.3% total body weight loss and a weight loss of 76.7 pounds since surgery (operative weight 262.5 pounds) reflecting a 29.2% TBWL since surgery.? No complaints of nausea, emesis, abdominal pain or reflux. Reports infrequent but normal bowel movements every 1- 2 with the use of fiber gummies and coalce.? We did receive the labs that he had obtained in [place], as he lives in the [facility] area. he feels great but not able to do much exercise due to increased responsibility at work. He expects to decrease work load this month. He states that he has noticed an intermittent rash to the skin folds of his abdomen. This is somewhat uncomfortable and itching and burning. He has had to adjust his daily hygiene to include washing the area underneath the abdominal fold 4-5 times per day. He additionally states that he has recently developed increased rash in the groin area due to excess skin of his medial thighs. He is applying clotrimazole cream with resolution although only to have recurrence. [place] and is trying to do the best that he can to minimize recurrence of rash with increased hygiene and barriers between skin folds. Present meal plan includes: oatmeal 1/2 c with almond milk meal 10 forks protein and 10 forks veg meal 10 forks protein and 10 forks veg drinking 50 oz water Exercise routine includes: working a lot and not exercising formally in the last 2-3 months walks a lot for his job at [facility] [employer] Medical History Prediabetes GERD (gastroesophageal reflux disease) Sleep apnea Asthma Morbid obesity Surgical History S/P laparoscopic sleeve gastrectomy History of esophagogastroduodenoscopy (EGD) H/O colonoscopy Family History Mother HTN (hypertension) Father HTN (hypertension) Diabetes Son No problems noted. Son No problems noted. Social History Household Members: Family Housing: Apartment Are you a primary manager intensive care to a significant other at home: No Do you presently have visiting nurse or other home services: No Alcohol intake: never Patient Tobacco Use Status: Never used Tobacco Advance Directives Date on File: 11/04/22 service: No Current occupational status: employed Telehealth Telehealth Telehealth Platform: Telephone Location of provider rendering services: practice address Location of patient: address on file Patient Identification confirmed using: Name, : Yes Telehealth method: voice only Patient verbally consented to treatment: Yes Patient verbally consented to billing insurance company: Yes Patient informed of any privacy concerns related to visit: Yes Minutes spent on Phone/Video with Pt.: 15 Assessment & Plan Assessment & Plan (1) S/P laparoscopic sleeve gastrectomy: Code(s): Z98.84 - Bariatric surgery status Category: Surgical Plan: Patient was encouraged to change his meal plan to include equate ready to drink shake (30 g per shake) half the container mixed with 6 oz of unsweetened almond milk in the morning followed by 2 meals with 7 forks of protein and 7 forks of vegetables each. Encouraged to resume cardiovascular activity with a goal of burning 300 calories per day. Due to his excess skin he has had multiple recurrent rashes of the abdomen and now groin. Encouraged to continue to use clotrimazole cream as able. Once he achieves a stable and healthy weight it would be appropriate for medically necessary skin removal surgery. We will have him return to the office in August
[2024-07-21 08:33] VITALS: BMI 29.1
== END 2024-07-21 08:58 | disposition home or self-care (01) ==
LOC: HO.HBS 08:54
PROVIDERS: PCP Internal Medicine Cardiovascular Disease; Visit Provider Physician Assistant Surgical
DX: E66.3 Overweight (principal); Z68.29 Body mass index [BMI] 29.0-29.9, adult; Z90.3 Acquired absence of stomach [part of]; Z98.84 Bariatric surgery status
CPT/HCPCS: 99213

== ENCOUNTER → 2024-07-21 08:30 | Outpatient (BNVA) | payer OTHER, BC, SELFPAY | PROVIDERS: PCP Internal Medicine Cardiovascular Disease; Visit Provider Physician Assistant Surgical ==

== ENCOUNTER 2024-08-27 12:53 | Outpatient (AMB) | payer OTHER, BC, SELFPAY ==
--- NOTE | 2024-08-27 12:56 | A.OFFVIS_ITS ---
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 Presents for 1year 7 month post op visit. Weight today is 184 pounds, with a BMI of 28.8.? There has been a 103.6 pound weight loss,(initial weight 287.6 pounds) since starting the program on 04/29/23 reflecting a 36% total body weight loss and a weight loss of 78.5 pounds since surgery (operative weight 262.5 pounds) reflecting a 29.9% TBWL since surgery.? No complaints of nausea, emesis, abdominal pain or reflux. Reports infrequent but normal bowel movements every 1- 2 with the use of fiber gummies and coalce.? We did receive the labs that he had obtained in [place], as he lives in the [facility] area. he feels great but not able to do much exercise due to increased responsibility at work. He expects to decrease work load this month. He states that he has noticed an intermittent rash to the skin folds of his abdomen. This is somewhat uncomfortable and itching and burning. He has had to adjust his daily hygiene to include washing the area underneath the abdominal fold 4-5 times per day. He additionally states that he has recently developed increased rash in the groin area due to excess skin of his medial thighs. He is applying clotrimazole cream with resolution although only to have recurrence. [place] and is trying to do the best that he can to minimize recurrence of rash with increased hygiene and barriers between skin folds. He states he has had 2-3 episodes of rash per month over the last 6 months, treated with antifungal cream BID for 7 days each. 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 We will add topical steroid to assist in the treatment plans. Present meal plan includes: equate ready to drink shake (30 g per shake) half the container mixed with 6 oz of unsweetened almond milk in the morning 2 meals with 7 forks of protein and 7 forks of vegetables each. drinking 64 oz water Exercise routine includes: 3 d per week, treadmill/weights walks a lot for his job at [employer] Medical History Prediabetes GERD (gastroesophageal reflux disease) Sleep apnea Asthma Morbid obesity Surgical History S/P laparoscopic sleeve gastrectomy History of esophagogastroduodenoscopy (EGD) H/O colonoscopy Family History Mother HTN (hypertension) Father HTN (hypertension) Diabetes Son No problems noted. Son No problems noted. Social History Household Members: Family Housing: Apartment Are you a primary geriatric personal care aide to a significant other at home: No Do you presently have visiting nurse or other home services: No Alcohol intake: never Patient Tobacco Use Status: Never used Tobacco Advance Directives Date on File: 11/04/22 service: No Current occupational status: employed Physical Exam Const General: healthy appearing and no acute distress Resp Effort & Inspection: normal respiratory effort Auscultation: clear to auscultation bilaterally Cardio Rate: regular rate Rhythm: regular rhythm GI Auscultation: normal bowel sounds Skin Other: Pannus grade 2. Evidence of skin changes from recurrent rash underneath the pannus and within the groin by way of slightly thickened reddened skin. No active rash as of today's appointment. Extrem General: Yes normal to inspection Assessment & Plan Assessment & Plan (1) S/P laparoscopic sleeve gastrectomy: Code(s): Z98.84 - Bariatric surgery status Category: Surgical Plan: Patient will continue going to the gym, tracking calories, burning at least 400 calories per session if not more. Additionally, doing weight training for about 20 minutes and then cardio for about 45. Continue current meal plan. Return to the office in 6 weeks. (2) Excess skin: Code(s): L98.7 - Excessive and redundant skin and subcutaneous tissue Category: Medical Plan: Patient with excess skin of the abdomen due to greater than 103 lb weight loss or 36% total body weight loss since starting the program. He has had recurrent rashes treated with prescriptive antifungal creams with resolution, only to recur. We will add topical steroid to his regimen in an attempt to completely resolve this however due to the recurrence of the rash, I suspect that he will need skin removal surgery. We will have him return to the office in approximately 5-6 weeks after using the topical steroid in conjunction with the antifungal cream, identifying frequency and duration so that we can plan accordingly to give him the best outcome. Medications: New triamcinolone acetonide 0.1% 1 appl topical BID 30 grams 2RF
[2024-08-27 13:04] VITALS: BP 129/65; PULSE 63; TEMP 37.2; O2SAT 98; BMI 28.8
== END 2024-08-27 13:27 | disposition home or self-care (01) ==
PROVIDERS: PCP Internal Medicine Cardiovascular Disease; Visit Provider Physician Assistant Surgical
DX: L98.7 Excessive and redundant skin and subcutaneous tissue (principal); Z90.3 Acquired absence of stomach [part of]; Z98.84 Bariatric surgery status
CPT/HCPCS: 99213

== ENCOUNTER 2024-10-04 08:24 | Outpatient (AMB) | payer OTHER, BC, SELFPAY ==
--- NOTE | 2024-10-04 08:27 | A.OFFVIS_ITS ---
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 Presents for 1 year 9 month post op visit. Weight today is 186.8 pounds, with a BMI of 29.3.? There has been a 100.8 pound weight loss,(initial weight 287.6 pounds) since starting the program on 04/29/23 reflecting a 35% total body weight loss and a weight loss of 75.7 pounds since surgery (operative weight 262.5 pounds) reflecting a 28.8% TBWL since surgery.? No complaints of nausea, emesis, abdominal pain or reflux. Reports infrequent but normal bowel movements every 1- 2 with the use of fiber gummies and coalce.? He states that he has noticed an intermittent rash to the skin folds of his abdomen. This is somewhat uncomfortable and itching and burning. He has had to adjust his daily hygiene to include washing the area underneath the abdominal fold 4-5 times per day. He additionally states that he has recently developed increased rash in the groin area due to excess skin of his medial thighs. He is applying clotrimazole cream with resolution although only to have recurrence. [place] and is trying to do the best that he can to minimize recurrence of rash with increased hygiene and barriers between skin folds. He states he has had 2-3 episodes of rash per month over the last 6 months, treated with antifungal cream BID for 7 days each. 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 We added topical steroid to assist in the treatment plans at his last visit approximately 2 months ago. He states that he has been applying both the antifungal and steroid cream with success in treatment of his rash however even with the addition of the steroid cream, upon completion, he would get a recurrence of rash. The frequency of his recurrence continues to be approximately 2-3 times per month as he does work in a hot climate. Present meal plan includes: equate ready to drink shake (30 g per shake) half the container mixed with 6 oz of unsweetened almond milk in the morning 2 meals with 7 forks of protein and 7 forks of vegetables each. drinking 64 oz water Exercise routine includes: No formal exercise in the last month as he has been very busy with his job walks a lot for his job at [employer] Any post op complications: None ALEXIS: Improved, follow-up with Neurology today. Repeat sleep study will be ordered. DM: Never HTN: Never Hyperlipidemia: Never GERD:?0-5 scale ??0 = no symptoms ??1 = symptoms noticeable but not bothersome 2 =symptoms bothersome but not daily ? 3 = symptoms bothersome and daily 4 = symptoms affect daily activities 5 = symptoms are incapacitating, unable to do daily activities ? How bad is the heartburn: 0 ? Heartburn while lying down: 0 ? Heartburn when standing up: 0 ? Heartburn after meals: 0 ? Does heartburn change your diet: 0 ? Does heartburn wake you up from sleep: 0 ? Do you have difficulty swallowin ? Do you have pain with swallowin ? If you take medicine for your reflux, does this affect your daily life: 0 Satisfaction with present condition - satisfied or not satisfied: Satisfied PFSH Medical History Prediabetes GERD (gastroesophageal reflux disease) Sleep apnea Asthma Morbid obesity Surgical History S/P laparoscopic sleeve gastrectomy History of esophagogastroduodenoscopy (EGD) H/O colonoscopy Family History Mother HTN (hypertension) Father HTN (hypertension) Diabetes Son No problems noted. Son No problems noted. Social History Household Members: Family Housing: Apartment Are you a primary residential care officer to a significant other at home: No Do you presently have visiting nurse or other home services: No Alcohol intake: never Patient Tobacco Use Status: Never used Tobacco Advance Directives Date on File: 11/04/22 service: No Current occupational status: employed Physical Exam Const General: cooperative and no acute distress Orientation/consciousness: patient oriented x3 Resp Effort & Inspection: normal respiratory effort Auscultation: clear to auscultation bilaterally Cardio Rate: regular rate Rhythm: regular rhythm GI Inspection: Yes normal to inspection and Yes incision (well healed) Palpation (GI): Soft to palpation and no masses Skin Other: Pannus grade 2/3 with evidence of dermatomal irritation consistent with resolved recurrent rash. Neuro General: patient oriented x3 Assessment & Plan Assessment & Plan (1) S/P laparoscopic sleeve gastrectomy: Code(s): Z98.84 - Bariatric surgery status Category: Surgical Plan: Overall, patient is doing well. He has had an increase in weight over the last 6 weeks due to an inability to exercise because of very busy work schedule. States that he should be able to improve now as 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 He will continue his meal plan and resume his exercise plan with a goal of losing 2-3 lb per week over the next 6 weeks. (2) Excess skin: Code(s): L98.7 - Excessive and redundant skin and subcutaneous tissue Category: Medical Plan: Clearly with excess skin of the abdomen causing recurrent rash. Given the slight weight increase because of decreased exercise, he is going to resume exercise as much as possible to achieve a healthier weight. Goal is 2-3 lb weight loss per week. We will have him return to clinic in approximately 4 weeks. Given the greater than 100 lb weight loss, recurrent rash despite t reatment with antifungal and steroid topical cream as well as negative impact on activities of daily living, it would be appropriate for medically necessary skin removal surgery. We will continue to monitor his frequency and I suspect at his next visit, we will be able to submit to his insurance company for approval
[2024-10-04 08:35] VITALS: BP 121/64; PULSE 70; TEMP 37; O2SAT 99; BMI 29.3
--- OUTSIDE RECORDS SUMMARY | 2024-10-04 08:44 | XMS_ITS | Patient Health Record ---
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 Name Role Phone Ronald Coppola Primary Care Provider [phone] Russell Garduno Unavailable [phone] Allergies No Known Allergies Results Component Value Reference Range Notes Vitamin D, 25-Hydroxy (99435 0) Reviewed date:10/28/2023 07:09:39 AM Interpretation: Performing Lab:[facility], [facility] [place], [place] [id number], Phone - [phone], Director - Judie Notes/Report: Vitamin D, 25-Hydroxy 57.5 30.0-100.0 ng/mL Vitamin D deficiency has been defined by the [place] of [employer] and an Endocrine Society practice guideline as a level of serum 25-OH vitamin D less than 20 ng/mL (1,2). The Endocrine Society went on to further define vitamin D insufficiency as a level between 21 and 29 ng/mL (2). 1. IOM ([place] of Medicine). 2010. Dietary reference intakes for calcium and D. [place]: The National Academies Press. 2. Preet MF, Munira NC, Angelika PATRICIO, et al. Evaluation, treatment, and prevention of vitamin D deficiency: an Endocrine Society clinical practice guideline. JCEM. 2010; 96(7):1911-30. Vitamin B12 (682788) Reviewed date:10/28/2023 07:09:39 AM Interpretation: Performing Lab:[facility], [facility] [place] [id number], Phone - [phone], Director - Judie Notes/Report: Vitamin B12 6374 725-0035 pg/mL Vitamin D, 25-Hydroxy (13794 0) Reviewed date:05/10/2024 02:15:32 PM Interpretation: Performing Lab:[address] [id number], Phone - [phone], Director - Judie Notes/Report: Vitamin D, 25-Hydroxy 36.0 30.0-100.0 ng/mL Vitamin D deficiency has been defined by the [place] of Medicine and an Endocrine Society practice guideline as a level of serum 25-OH vitamin D less than 20 ng/mL (1,2). The Endocrine Society went on to further define vitamin D insufficiency as a level between 21 and 29 ng/mL (2). 1. IOM ([place] of Medicine). 2010. Dietary reference intakes for calcium and D. [place]: The National Academies Press. 2. Preet MF, Munira DAVEY, Angelika PATRICIO, et al. Evaluation, treatment, and prevention of vitamin D deficiency: an Endocrine Society clinical practice guideline. JCEM. 2010; 96(7):1911-30. Hgb A1c with eAG Estimation (702543) Reviewed date:05/10/2024 02:15:32 PM Interpretation: Performing Lab:[address] [id number], Phone - [phone], Director - Judie Notes/Report: Hemoglobin A1c 5.5 4.8-5.6 % . Prediabetes: 5.7 - 6.4 Diabetes: >6.4 Glycemic control for adults with diabetes: <7.0 Estim. Avg Glu (eAG) 111 Vitamin B12 (955154) Reviewed date:05/10/2024 02:15:32 PM Interpretation: Performing Lab:[address] [id number], Phone - [phone], Director - Judie Notes/Report: Vitamin B12 453 467-4015 pg/mL Lipid Panel (562176) Reviewed date:05/10/2024 02:15:32 PM Interpretation: [facility] [address] [place] [id number], Phone - [phone], Director - Judie Notes/Report: Cholesterol, Total 148 100-199 mg/dL Triglycerides 62 0-149 mg/dL HDL Cholesterol 46 >39 mg/dL VLDL Cholesterol Boby 13 5-40 mg/dL LDL Chol Calc (NIH) 89 0-99 mg/dL Prostate-Specific Ag, Serum (209859) (Not yet reviewed by provider) Interpretation: Performing Lab:[facility], [facility] [address] [place] [id number], Phone - [phone], Director - Judie Notes/Report: Prostate Specific Ag 0.9 0.0-4.0 ng/mL Zahida ECLIA methodology. . According to the [place] [employer], Serum PSA should decrease and remain at undetectable levels after radical prostatectomy. The AUA defines biochemical recurrence as an initial PSA value 0.2 ng/mL or greater followed by a subsequent confirmatory PSA value 0.2 ng/mL or greater. Values obtained with different assay methods or kits cannot be used interchangeably. Results cannot be interpreted as absolute evidence of the presence or absence of malignant disease. Vitamin D, 25-Hydroxy (76829 0) (Not yet reviewed by provider) Interpretation: Performing Lab:[facility], [facility] [address] [place], [place] [id number], Phone - [phone], Director - Judie Notes/Report: Vitamin D, 25-Hydroxy 33.0 30.0-100.0 ng/mL Vitamin D deficiency has been defined by the [place] of Medicine and an Endocrine Society practice guideline as a level of serum 25-OH vitamin D less than 20 ng/mL (1,2). The Endocrine Society went on to further define vitamin D insufficiency as a level between 21 and 29 ng/mL (2). 1. IOM ([place] of Medicine). 2010. Dietary reference intakes for calcium and D. [place]: The National Academies Press. 2. Preet MF, Munira DAVEY, Angelika PATRICIO, et al. Evaluation, treatment, and prevention of vitamin D deficiency: an Endocrine Society clinical practice guideline. JCEM. 2010; 96(7):1911-30. Hgb A1c with eAG Estimation (462416) (Not yet reviewed by provider) Interpretation: Performing Lab:[facility] [id number], Phone - [phone], Director - Judie Notes/Report: Hemoglobin A1c 5.4 4.8-5.6 % . Prediabetes: 5.7 - 6.4 Diabetes: >6.4 Glycemic control for adults with diabetes: <7.0 Estim. Avg Glu (eAG) 108 Vitamin B12 (099146) (Not ye t reviewed by provider) Interpretation: Performing Lab:[facility] [address] [id number], Phone - [phone], Director - Emirrier Notes/Report: Vitamin B12 859 724-3416 pg/mL Lipid Panel (758621) (Not ye t reviewed by provider) Interpretation: Performing Lab:[address] [id number], Phone - [phone], Director - MDFarrier Notes/Report: Cholesterol, Total 178 100-199 mg/dL Triglycerides 52 0-149 mg/dL HDL Cholesterol 47 >39 mg/dL VLDL Cholesterol Boby 10 5-40 mg/dL LDL Chol Calc (NIH) 121 0-99 mg/dL Urinalysis, Routine Urinalys is, by dip stick or tablet reagent (Not yet reviewed by provider) Interpretation: Performing Lab: Notes/Report: Leukocytes Neg Urine-Color Yellow Appearance Cloudy Specific Ford 1.025 pH 6.0 Glucose Neg Protein 0.14 Occult Blood Neg Bilirubin 1+ Urobilinogen,Semi-Qn 3.5 Nitrite, Urine Neg Ketones Neg Vitamin D, 25-Hydroxy (60254 0) (Not yet reviewed by provider) Interpretation: Performing Lab:[address] [id number], Phone - [phone], Director - MDFarrier Notes/Report: Vitamin D, 25-Hydroxy 36.0 30.0-100.0 ng/mL Vitamin D deficiency has been defined by the [place] of Medicine and an Endocrine Society practice guideline as a level of serum 25-OH vitamin D less than 20 ng/mL (1,2). The Endocrine Society went on to further define vitamin D insufficiency as a level between 21 and 29 ng/mL (2). 1. IOM ([place] of Medicine). 2010. Dietary reference intakes for calcium and D. [place]: The National Academies Press. 2. Preet MF, Munira DAVEY, Angelika PATRICIO, et al. Evaluation, treatment, and prevention of vitamin D deficiency: an Endocrine Society clinical practice guideline. JCEM. 2010; 96(7):1911-30. Vitamin B12 (105218) (Not ye t reviewed by provider) Interpretation: Performing Lab:[facility], [address] [place] [id number], Phone - [phone], Director - Judie Notes/Report: Vitamin B12 762 717-0725 pg/mL [facility] (360479) Reviewed date:10/30/2023 03:01:16 PM Interpretation: Performing Lab: Notes/Report: Glucose 80 70-99 mg/dL Hemoglobin A1c 5.5 4.8-5.6 % BUN 12 6-24 mg/dL Creatinine 0.77 0.76-1.27 mg/dL eGFR 109 >59 mL/min/1.73 BUN/Creatinine Ratio 16 9-20 Sodium 146 134-144 mmol/L Potassium 4.7 3.5-5.2 mmol/L Chloride 105 96-106 mmol/L Carbon Dioxide, Total 24 20-29 mmol/L Calcium 9.2 8.7-10.2 mg/dL Protein, Total 6.1 6.0-8.5 g/dL Albumin 4.1 4.1-5.1 g/dL Globulin, Total 2.0 1.5-4.5 g/dL A/G Ratio 2.1 1.2-2.2 Bilirubin, Total 0.7 0.0-1.2 mg/dL Alkaline Phosphatase 58 44-121 IU/L AST (SGOT) 12 0-40 IU/L ALT (SGPT) 8 0-44 IU/L Cholesterol, Total 156 100-199 mg/dL Triglycerides 57 0-149 mg/dL HDL Cholesterol 47 >39 mg/dL VLDL Cholesterol Boby 12 5-40 mg/dL LDL Chol Calc (NIH) 97 0-99 mg/dL T. Chol/HDL Ratio 3.3 0.0-5.0 ratio Estimated CHD Risk < 0.5 0.0-1.0 times avg. TSH 0.880 0.450-4.500 uIU/mL WBC 8.9 3.4-10.8 x10E3/uL RBC 4.73 4.14-5.80 x10E6/uL Hemoglobin 14.5 13.0-17.7 g/dL Hematocrit 42.3 37.5-51.0 % MCV 89 79-97 fL MCH 30.7 26.6-33.0 pg MCHC 34.3 31.5-35.7 g/dL RDW 12.2 11.6-15.4 % Platelets 253 150-450 x10E3/uL Neutrophils 47 Not Estab. % Lymphs 41 Not Estab. % Monocytes 7 Not Estab. % Eos 4 Not Estab. % Basos 1 Not Estab. % Neutrophils (Absolute) 4.2 1.4-7.0 x10E3/uL Lymphs (Absolute) 3.6 0.7-3.1 x10E3/uL Monocytes(Absolute) 0.6 0.1-0.9 x10E3/uL Eos (Absolute) 0.4 0.0-0.4 x10E3/uL Baso (Absolute) 0.1 0.0-0.2 x10E3/uL Immature Granulocytes 0 Not Estab. % Immature Grans (Abs) 0.0 0.0-0.1 x10E3/uL Prostate-Specific Ag, Serum (545104) Reviewed date:09/28/2024 03:26:16 PM Interpretation: Performing Lab: Notes/Report: Prostate Specific Ag 1.0 0.0-4.0 ng/mL [facility] (133376) Reviewed date:09/28/2024 03:26:16 PM Interpretation: Performing Lab: Notes/Report: Glucose 82 70-99 mg/dL Hemoglobin A1c 5.3 4.8-5.6 % BUN 15 6-24 mg/dL Creatinine 0.81 0.76-1.27 mg/dL eGFR 107 >59 mL/min/1.73 BUN/Creatinine Ratio 19 9-20 Sodium 143 134-144 mmol/L Potassium 4.1 3.5-5.2 mmol/L Chloride 104 96-106 mmol/L Carbon Dioxide, Total 24 20-29 mmol/L Calcium 9.2 8.7-10.2 mg/dL Protein, Total 6.2 6.0-8.5 g/dL Albumin 3.9 3.8-4.9 g/dL Globulin, Total 2.3 1.5-4.5 g/dL Bilirubin, Total 0.6 0.0-1.2 mg/dL Alkaline Phosphatase 57 44-121 IU/L AST (SGOT) 14 0-40 IU/L ALT (SGPT) 11 0-44 IU/L Cholesterol, Total 186 100-199 mg/dL Triglycerides 67 0-149 mg/dL HDL Cholesterol 49 >39 mg/dL VLDL Cholesterol Boby 13 5-40 mg/dL LDL Chol Calc ([facility]) 124 0-99 mg/dL T. Chol/HDL Ratio 3.8 0.0-5.0 ratio Estimated CHD Risk 0.7 0.0-1.0 times avg. TSH 1.000 0.450-4.500 uIU/mL WBC 7.9 3.4-10.8 x10E3/uL RBC 4.94 4.14-5.80 x10E6/uL Hemoglobin 14.8 13.0-17.7 g/dL Hematocrit 44.8 37.5-51.0 % MCV 91 79-97 fL MCH 30.0 26.6-33.0 pg MCHC 33.0 31.5-35.7 g/dL RDW 11.8 11.6-15.4 % Platelets 223 150-450 x10E3/uL Neutrophils 54 Not Estab. % Lymphs 35 Not Estab. % Monocytes 8 Not Estab. % Eos 2 Not Estab. % Basos 1 Not Estab. % Neutrophils (Absolute) 4.2 1.4-7.0 x10E3/uL Lymphs (Absolute) 2.7 0.7-3.1 x10E3/uL Monocytes(Absolute) 0.7 0.1-0.9 x10E3/uL Eos (Absolute) 0.2 0.0-0.4 x10E3/uL Baso (Absolute) 0.1 0.0-0.2 x10E3/uL Immature Granulocytes 0 Not Estab. % Immature Grans (Abs) 0.0 0.0-0.1 x10E3/uL Reason For Referral No Information Immunizations Vaccine Route Administration Date Status Comme nts Tdap IM Intramuscular 12/01/2017 Administered Hepatitis B (Adult) IM Intramuscular 12/01/2017 Administer ed Problems Problem Type SNOMED Code ICD Code Onset Dates Problem Status W/U Status Risk Notes Problem Vitamin B deficiency (00721622) Deficiency of other specified B group vitamins (E53.8) Active confirmed Problem Obesity (813332329) Obesity, unspecified (E66.9) Active confirmed Problem History of bariatric surgical procedure (807890432) Bariatric surgery status (Z98.84) Active confirmed Problem 364315196 Dyslipidemia (E78.5) Active confirmed Problem Asthma (662584249) Asthma (J45.909) Active confirmed Problem 77167811 Vitamin D deficiency (E55.9) Active confirmed Problem 358572842 Morbid obesity (E66.01) Active confirmed Problem 11456552 Migraine without status migrainosus, not intractable, unspecified migraine type (G43.909) Active confirmed Problem 37457544 Hypogonadism mal e (E29.1) Active confirmed Problem 420388674 Mild persistent asthma without complication (J45.30) Active confirmed Problem 021318959 Other elevated white blood cell (WBC) count (D72.828) Active confirmed Problem 69374118 Lymphocytosis (D72.820) Active confirmed Problem 786956624 Obesity (BMI 30-39.9) (E66.9) Active confirmed Problem 962449128 House dust mite allergy (Z91.09) Active confirmed Problem 985526440 Type 2 diabetes mellitus without complication, without long-term current use of insulin (E11.9) Active confirmed Problem 93194968 Right bundle branch block (RBBB) (I45.10) Active confirmed Problem 067775682 Mild intermitten t asthma, unspecified whether complicated (J45.20) Active confirmed Problem 420454498 Seasonal allergi c rhinitis, unspecified trigger (J30.2) Active confirmed Problem Hepatic fibrosis (disorder) (88792430) Hepatic fibrosis, unspecified (K74.00) Active confirmed Vital Signs Heart Rate 76 /min 09/30/2024 Temperature 98.2 degrees Fahrenheit 09/30/2024 Respiratory Rate 16 /min 09/30/2024 Height-cm 170.18 cm 09/30/2024 Oximetry 96 % 09/30/2024 Blood pressure diastolic 68 mm Hg 09/30/2024 Weight-kg 88.54 kg 09/30/2024 Height 67 in 09/30/2024 Blood pressure systolic 110 mm Hg 09/30/2024 Weight 195.2 lbs 09/30/2024 BMI 30.57 kg/m2 09/30/2024 Encounters Encounter Location Date Provider Diagnosis [place] [phone] 10/27/2023 Russell Laureen B12 deficiency E53.8 ; Vitamin D deficiency E55.9 and Encounter for screening Z13.9 [place] [phone] 11/03/2023 Ronald Coppola Dyslipidemia E78.5 ; Vitamin D deficiency E55.9 ; Type 2 diabetes mellitus without complication, without long-term current use of insulin E11.9 ; B12 deficiency E53.8 ; Lymphocytosis D72.820 ; PHA Review PHA and Screening for colon cancer Z12.11 [place] [address] 03/18/2024 Ronald Coppola B12 deficiency E53.8 ; Dyslipidemia E78.5 ; Vitamin D deficiency E55.9 and Type 2 diabetes mellitus without complication, without long-term current use of insulin E11.9 [place] [address] 03/25/2024 Ronald Coppola Dyslipidemia E78.5 ; Vitamin D deficiency E55.9 ; Type 2 diabetes mellitus without complication, without long-term current use of insulin E11.9 ; B12 deficiency E53.8 and Screening for prostate cancer Z12.[address] [address] 04/14/2024 Russell Laureen Migraine without sta tus migrainosus, not intractable, unspecified migraine type G43.[address] [address] 06/07/2024 Russell Laureen Type 2 diabetes mellitus without complication, without long-term current use of insulin E11.9 ; Vitamin D deficiency E55.9 ; Dyslipidemia E78.5 ; B12 deficiency E53.8 and Screening for prostate cancer Z12.[address] [place] [address] 06/16/2024 Ronald Coppola Dyslipidemia E78.5 ; Vitamin D deficiency E55.9 ; Type 2 diabetes mellitus without complication, without long-term current use of insulin E11.9 ; B12 deficiency E53.8 and Screening for prostate cancer Z12.5 [place] [address] [address] 08/17/2024 Ronald Coppola Painful urination R3 0.9 [place] [address] [address] 09/24/2024 Russell Laureen B12 deficiency E53.8 ; Vitamin D deficiency E55.9 and Encounter for screening Z13.9 [place] [address] [address] 09/30/2024 Ronald Coppola Dyslipidemia E78.5 ; Vitamin D deficiency E55.9 ; Type 2 diabetes mellitus without complication, without long-term current use of insulin E11.9 ; B12 deficiency E53.8 and Screening for prostate cancer Z12.5 [place] [address] [address] 03/02/2024 Ronald Coppola Medication refill Z7 6.0 Assessments Encounter Date Diagnosis (ICD Code) Assessment Notes Treatment Notes Treatment Clinical Notes Section Notes 10/27/2023 B12 deficiency (ICD-10 - E53.8) 11/03/2023 Dyslipidemia (ICD-10 - E78.5) LDL and HDL is at goal. Encouraged to continue healthy lifestyle. Recheck Lipids in 4-5 months. 11/03/2023 Vitamin D deficiency (ICD-10 - E55.9) At goal. Rayo ue current OTC med/dose 03/18/2024 Dyslipidemia (ICD-10 - E78.5) 03/18/2024 B12 deficiency (ICD-10 - E53.8) 03/25/2024 Dyslipidemia (ICD-10 - E78.5) LDL and HDL is at goal. Encouraged to continue healthy lifestyle. Recheck Lipids. 04/14/2024 Migraine without status migrainosus, not intractable, unspecified migraine type (ICD-10 - G43.909) REST, EXCUSE NOTE FROM WORK TILL 04/19/2024 WAS PROVIDED TO PT. INCREASE FLUID INTAKE KEEP HEADACHE DIARY F/U IN 1 WEEK. 06/07/2024 Vitamin D deficiency (ICD-10 - E55.9) 06/07/2024 Type 2 diabetes mellitus without complication, without long-term current use of insulin (ICD-10 - E11.9) 06/16/2024 Dyslipidemia (ICD-10 - E78.5) LDL is not at goal. HDL is at goal. Encouraged to start healthy lifestyle. Recheck Lipids. 08/17/2024 Painful urination (ICD-10 - R30.9) UA noted to be benign. No sign of infection. ?due to change in his diet. Pt. advised to monitor his symptoms. 09/24/2024 B12 deficiency (ICD-10 - E53.8) 09/30/2024 Dyslipidemia (ICD-10 - E78.5) LDL is not at goal. HDL is at goal. Encouraged to start healthy lifestyle. Recheck Lipids. 03/02/2024 Medication refill (ICD-10 - Z76.0) 10/27/2023 Vitamin D deficiency (ICD-10 - E55.9) 11/03/2023 Type 2 diabetes mellitus without complication, without long-term current use of insulin (ICD-10 - E11.9) HBA1c is at 5.5 HBA1c is no longer in the Diabetes range most likely due to Gastric bypass. Continue monitoring. 03/18/2024 Vitamin D deficiency (ICD-10 - E55.9) 03/25/2024 Vitamin D deficiency (ICD-10 - E55.9) At goal. Rayo ue current OTC med/dose 06/07/2024 Dyslipidemia (ICD-10 - E78.5) 06/16/2024 Vitamin D deficiency (ICD-10 - E55.9) Pt. counseled on taking Vit D as recommended. 09/24/2024 Vitamin D deficiency (ICD-10 - E55.9) 09/30/2024 Vitamin D deficiency (ICD-10 - E55.9) Pt. counseled on taking Vit D daily with food. 10/27/2023 Encounter for screening (ICD-10 - Z13.9) 11/03/2023 B12 deficiency (ICD-10 - E53.8) B12 is at goal. Continue current OTC dose. 03/18/2024 Type 2 diabetes mellitus without complication, without long-term current use of insulin (ICD-10 - E11.9) 03/25/2024 Type 2 diabetes mellitus without complication, without long-term current use of insulin (ICD-10 - E11.9) HBA1c is at 5.5 HBA1c is no longer in the Diabetes range most likely due to Gastric bypass. Continue monitoring. 06/07/2024 B12 deficiency (ICD-10 - E53.8) 06/16/2024 Type 2 diabetes mellitus without complication, without long-term current use of insulin (ICD-10 - E11.9) HBA1c is at 5.5 HBA1c is no longer in the Diabetes range most likely due to Gastric bypass. Continue monitoring. 09/24/2024 Encounter for screening (ICD-10 - Z13.9) 09/30/2024 Type 2 diabetes mellitus without complication, without long-term current use of insulin (ICD-10 - E11.9) HBA1c is at 5.5 HBA1c is no longer in the Diabetes range most likely due to Gastric bypass. Continue monitoring. 11/03/2023 Lymphocytosis (ICD-10 - D72.820) Cleared by [facility]. No follow up is scheduled. 03/25/2024 B12 deficiency (ICD-10 - E53.8) B12 is close to goal. Continue current OTC dose. 06/07/2024 Screening for prostate cancer (ICD-10 - Z12.5) 06/16/2024 B12 deficiency (ICD-10 - E53.8) Pt. counseled on taking Vit B12 as recommended. 09/30/2024 B12 deficiency (ICD-10 - E53.8) Pt. counseled on taking Vit B12 daily. 11/03/2023 PHA Review (ICD-10 - PHA) 03/25/2024 Screening for prostate cancer (ICD-10 - Z12.5) 06/16/2024 Screening for prostate cancer (ICD-10 - Z12.5) PSA WNL. 09/30/2024 Screening for prostate cancer (ICD-10 - Z12.5) PSA WNL. 11/03/2023 Screening for colon cancer (ICD-10 - Z12.11) Last Colonoscopy and upper endoscopy: 2021. Recommended repeat colonoscopy in 10 yrs. Plan Of Treatment Pending Test Test Name Order Date Urinalysis, Routine Urinalysis, by dip s tick or tablet reagent 08/17/2024 Vitamin A, Serum (109632) 07/08/2023 Insulin (659315) 07/08/2023 CBC With Differential/Platelet (723039) 07/08/2023 Iron and TIBC (191557) 07/08/2023 Vitamin D, 25-Hydroxy (396645) 3 Hemoglobin A1c (378604) 07/08/2023 C-Reactive Protein, Cardiac (967182) Lipid Panel (271887) 07/08/2023 Basic Metabolic Panel (8) (699182) 07/08 Vitamin B12 and Folate (590698) 07/08/20 23 Ferritin, Serum (891556) 07/08/2023 TSH reflex to T4F 07/08/2023 Prostate-Specific Ag, Serum (893473) Vitamin D, 25-Hydroxy (310102) 4 Hgb A1c with eAG Estimation (361945) Vitamin B12 (244184) 06/07/2024 Lipid Panel (202539) 06/07/2024 Vitamin D, 25-Hydroxy (541085) 5 Vitamin B12 (582042) 09/24/2024 Next Appt Details Provider Name:Ronald Coppola, 01/28/2025 08:00:00 AM, [address], [place], [address], Provider Name:Ronald Coppola, 02/03/2025 10:00:00 AM, [address], [place], [address], Insurance Providers Payer Name Payer Address Payer Phone Subscriber Number Group Number Insured Name Patient Relationship to Insured Coverage Start Date Coverage End Date [employer] [address] [place] [address] [id number] Preston Nuñez Self - patient is the insured 4 [employer] [address] [place] [address] [id number] Maddi crowePreston Self - patient is the insured 8 8 [employer] [address] [place] [address] [id number] TriciaElizabeth fountainPreston kerr Self - patient is the insured 7 4 Medications Administered Medication Instructions Date of Administration Dosage Notes Ketorolac Tromethamine 04/14/2024 2 mL Medical (General) History Medical History History ICD Code Asthma Seasonal allergies Obesity Diabetes Migraine headaches Surgical History Surgery Date(Month/Year) Colonoscopy 2021 Gastric bypass surgery (December 2022).
--- OUTSIDE RECORDS SUMMARY | 2024-10-04 08:44 | XMS_ITS ---
Author Organization [facility] Address [address] [place] [address] Care Team Providers Care Welding Engineer Name Role Phone Ronald Coppola Primary Care Provider REASON FOR VISIT PHA draw + extra labs review Encounters Encounter Location Date Provider Diagnosis [facility] [address] [place] [address] 09/22/2024 Ronald Coppola Plan Of Treatment Next Appt Details Provider Name:Ronald Coppola, 01/28/2025 08:00:00 AM, [address], [place], [address], Provider Name:Ronald Coppola, 02/03/2025 10:00:00 AM, [address], [place], [address], Progress Notes * Preston STARR MDOB: (49 yo M)Acc No.[id number]:09/22/2024 Progress Note - Follow-Up Patient:?Henrry STARR Provider:Camden Coppola MD :1975???Age:49 Y???Sex:Male Howard e:09/22/2024 External Visit ID:[id number] Address:[address], , [place], [place] Subjective: * Chief Complaints: * ???1. PHA draw + extra labs review. * Medical History:? Objective: * Vitals:? * Physical Examination:? Assessment: Plan: * Treatment: * * Electronic signature of Ronald Coppola MD on 10/04/2024 at 07:44 AM SAP SPECIALIST Sign off status: Pending * Provider:?Ronald Coppola MD Date:? 5 Generated for Nadine robles/Xenia/eTransmitting on:?10/04/2024 07:44 AM SAP SPECIALIST
--- OUTSIDE RECORDS SUMMARY | 2024-10-04 08:45 | XMS_ITS ---
Author Organization [facility] Address [address] [place] [address] Care Team Providers Care Grocery Checker Name Role Phone Ronald Coppola Primary Care Provider [phone] Russell Garduno Unavailable [phone] Results Component Value Reference Range Notes Vitamin D, 25-Hydroxy (34924 0) (Not yet reviewed by provider) Interpretation: Performing Lab:[facility] [place], [facility] [place], [place] [id number], Phone - [phone], Director - Judie Notes/Report: Vitamin D, 25-Hydroxy 36.0 30.0-100.0 ng/mL Vitamin D deficiency has been defined by the [place] of Medicine and an Endocrine Society practice guideline as a level of serum 25-OH vitamin D less than 20 ng/mL (1,2). The Endocrine Society went on to further define vitamin D insufficiency as a level between 21 and 29 ng/mL (2). 1. IOM ([place] of [employer]). 2010. Dietary reference intakes for calcium and D. [place]: The National Academies Press. 2. Preet MF, Munira NC, Carlene-Dayo PATRICIO, et al. Evaluation, treatment, and prevention of vitamin D deficiency: an Endocrine Society clinical practice guideline. JCEM. 2010; 96(7):1911-30. Vitamin B12 (548402) (Not ye t reviewed by provider) Interpretation: Performing Lab:[facility] [place], [address] [place], [place] [id number], Phone - [phone], Director - Judie Notes/Report: Vitamin B12 [phone] pg/mL REASON FOR VISIT PHA draw + extra labs, MALPN PHA Draw Medications Medication SIG (Take, Route, Frequency, Duration) Notes Start Date End Date Status Budesonide 0.25 MG/2ML 2 mL Inhalation O nce a day for 30 days Not-Taking Vitamin D Not-Taking Albuterol Sulfate (2.5 MG/3ML) 0.083% 3 mL as needed Inhalation every 4 hrs for 90 days Not-Taking Ondansetron 8 MG 1 tablet on the tong ue and allow to dissolve as needed Orally Once a day for 10 days 04/14/2024 Not-Taking B12 5000 MCG as directed Sublingual Not-Taking Vital Signs Blood pressure systolic 130 mm Hg 09/24/19 25 Blood pressure diastolic 70 mm Hg 025 Height 67 in 09/24/2024 Weight 193.6 lbs 09/24/2024 BMI 30.32 kg/m2 09/24/2024 Height-cm 170.18 cm 09/24/2024 Weight-kg 87.82 kg 09/24/2024 Encounters Encounter Location Date Provider Diagnosis [facility] [address] [facility] [address] [place] [address] 09/24/2024 Russell Garduno B12 deficiency E53.8 ; Vitamin D deficiency E55.9 and Encounter for screening Z13.9 Assessments Encounter Date Diagnosis (ICD Code) Assessment Notes Treatment Notes Treatment Clinical Notes Section Notes 09/24/2024 B12 deficiency (ICD-10 - E53.8) 09/24/2024 Vitamin D deficiency (ICD-10 - E55.9) 09/24/2024 Encounter for screening (ICD-10 - Z13.9) Plan Of Treatment Pending Test Test Name Order Date Vitamin D, 25-Hydroxy (208896) Vitamin B12 (282001) 09/24/2024 Next Appt Details Follow Up: prn, Reason: Provider Name:Ronald Coppola, 01/28/2025 08:00:00 AM, [address], [place], [address], Provider Name:Ronald Coppola, 02/03/2025 10:00:00 AM, [address], [place], [address], Procedure Notes * Category Sub-Category Detail Notes Venipuncture Venipuncture: 21g Straight nee dle Draw Attempts #:: 1 Draw Site Site:: Right AC Disposition Disposition:: Pt tolerated well Progress Notes * Preston STARR MDOB: (49 yo M)Acc No.[id number]:09/24/2024 PHA Draw Note Patient:?RAHULAMANDAHenrry Provider:?Russell Garduno, :1975???Age:49 Y???Sex:Male Howard e:09/24/2024 External Visit ID:[id number] Address:[address] [place] [address] Pcp:Ronald Coppola Check Out:08:02 AM JUVENILE DETENTION OFFICER Subjective: * Chief Complaints: * ???PHA draw + extra labsMALP N PHA Draw * Medical History:? * Surgical History:? * Hospitalization/Major Diagno stic Procedure:? * Medications:?Not-Taking/PRNO ndansetron 8 MG Tablet Disintegrating 1 tablet on the tongue and allow to dissolve as needed Orally Once a day B12 5000 MCG Tablet Sublingual as directed Sublingual Vitamin D Albuterol Sulfate (2.5 MG/3ML) 0.083% Nebulization Solution 3 mL as needed Inhalation every 4 hrs Budesonide 0.25 MG/2ML Suspension 2 mL Inhalation Once a day Not-Taking/PRN Ondansetron 8 MG Tablet Disintegrating 1 tablet on the tongue and allow to dissolve as needed Orally Once a day Not-Taking/PRN B12 5000 MCG Tablet Sublingual as directed Sublingual Not-Taking/PRN Vitamin D Not-Taking/PRN Albuterol Sulfate (2.5 MG/3ML) 0.083% Nebulization Solution 3 mL as needed Inhalation every 4 hrs Not-Taking/PRN Budesonide 0.25 MG/2ML Suspension 2 mL Inhalation Once a day Objective: * Vitals:?Ht: 67 in, Wt:193.6l bs, BP:130/70mm Hg, Waist: 40, BMI:30.32Index, Wt Change: 0 lbs, Ht-cm: 170.18 cm, Wt-k.82 kg. Assessment: * Assessment: 1.?B12 deficiency - E53.8??? 2.?Vitamin D deficiency - E55.9???3.?Encounter for screening - Z13.9 (Primary)??? Plan: * Treatment: 2.?Vitamin D deficiency?LAB: Vitamin D, 25-Hydroxy (924232) * Procedures:?Venipuncture:?Draw Attempts ?#:?1 ?Draw Site ?Site:?Right AC ?Disposition ?Disposition:?Pt tolerated well ?Venipuncture:?21g Straight needle.? * Procedure Codes:?89898 VITAM IN B-[id number] VENIPUNCT, ROUTINE*47086 ASSAY OF VITAMIN N53536 GENERAL HEALTH PANEL * Follow Up:?prn * * NILE DETENTION OFFICER Sign off status: Completed true * Provider:?Russell Garduno, DO Date:? 025 Generated for Nadine robles/Xenia/Sidsmitting on:?10/04/2024 07:45 AM JUVENILE DETENTION OFFICER
--- OUTSIDE RECORDS SUMMARY | 2024-10-04 08:45 | XMS_ITS ---
Author Organization [facility] Address [address] [facility] [address] [place] [address] Care Team Providers Care Machine Steak Tenderizer Name Role Phone Ronald Coppola Primary Care Provider Allergies No Known Allergies REASON FOR VISIT f/u on labs Vital Signs Temperature 98.2 degrees Fahrenheit 09/30/19 25 Blood pressure systolic 110 mm Hg 09/30/19 25 Blood pressure diastolic 68 mm Hg 025 Heart Rate 76 /min 09/30/2024 Respiratory Rate 16 /min 09/30/2024 Height 67 in 09/30/2024 Weight 195.2 lbs 09/30/2024 BMI 30.57 kg/m2 09/30/2024 Oximetry 96 % 09/30/2024 Height-cm 170.18 cm 09/30/2024 Weight-kg 88.54 kg 09/30/2024 Encounters Encounter Location Date Provider Diagnosis [place] [id number] [place] [address] 09/30/2024 Ronaldelvin Coppola Dyslipidemia E78.5 ; Vitamin D deficiency E55.9 ; Type 2 diabetes mellitus without complication, without long-term current use of insulin E11.9 ; B12 deficiency E53.8 and Screening for prostate cancer Z12.5 Assessments Encounter Date Diagnosis (ICD Code) Assessment Notes Treatment Notes Treatment Clinical Notes Section Notes 09/30/2024 Dyslipidemia (ICD-10 - E78.5) LDL is not at goal. HDL is at goal. Encouraged to start healthy lifestyle. Recheck Lipids. 09/30/2024 Vitamin D deficiency (ICD-10 - E55.9) Pt. counseled on taking Vit D daily with food. 09/30/2024 Type 2 diabetes mellitus without complication, without long-term current use of insulin (ICD-10 - E11.9) HBA1c is at 5.5 HBA1c is no longer in the Diabetes range most likely due to Gastric bypass. Continue monitoring. 09/30/2024 B12 deficiency (ICD-10 - E53.8) Pt. counseled on taking Vit B12 daily. 09/30/2024 Screening for prostate cancer (ICD-10 - Z12.5) PSA WNL. Plan Of Treatment Future Test Test Name Order Date Vitamin D, 25-Hydroxy (361088) Hgb A1c with eAG Estimation (835085) Vitamin B12 (657130) 01/28/2025 Lipid Panel (484511) 01/28/2025 Next Appt Details Follow Up: 4 Months, Reason: Provider Name:Ronald Coppola, 01/28/2025 08:00:00 AM, [address] [place] [address], [place], [address], Provider Name:Ronald Coppola, 02/03/2025 10:00:00 AM, [address], [place], [address], Progress Notes * Preston STARR MDOB: (49 yo M)Acc No.[id number]:09/30/2024 Progress Note - Follow-Up Patient:?Henrry STARR Provider:?Ronald Coppola MD :1975???Age:49 Y???Sex:Male Howard e:09/30/2024 External Visit ID:[id number] Address:[facility] [address] [place] [address], [facility] Check Out:09:36 AM RAILCAR FOREMAN Subjective: * Chief Complaints: * ???F/u on labs * HPI: ???:? 49 yo M is here for f/u to review labs. Pt. reports of being well with no complaints. Pt. states that he has not been compliant with taking Vit D and B12 daily. * ROS:?General/Constitutional:?See HPI?X.? * Medical History:? * Surgical History:?Gastric by pass surgery (December 2022). Colonoscopy 2021 * Hospitalization/Major Diagno stic Procedure:?No Hospitalization History. * Family History:?Paternal Gra nd Father: HTN , DM.?Paternal Grand Mother: [place].?Maternal aunt: BREAST CA.? * Social History:?Tobacco Use:?Tobacco Use/Smoking Status: *Nonsmoker?.?Other Tobacco Use: Patient does not use tobacco products. ???Drugs/Alcohol:?Alcohol: Patient does not use alcohol products. ?History of Drug Use: Patient does not use recreational drugs. ???Miscellaneous:?Exercise: 1 - 2.5 per week. ?Sexually active: Active? Yes. * Medications:?DiscontinuedOnd ansetron 8 MG Tablet Disintegrating 1 tablet on the tongue and allow to dissolve as needed Orally Once a day B12 5000 MCG Tablet Sublingual as directed Sublingual Vitamin D Albuterol Sulfate (2.5 MG/3ML) 0.083% Nebulization Solution 3 mL as needed Inhalation every 4 hrs Budesonide 0.25 MG/2ML Suspension 2 mL Inhalation Once a day Medication List reviewed and reconciled with the patientDiscontinued Ondansetron 8 MG Tablet Disintegrating 1 tablet on the tongue and allow to dissolve as needed Orally Once a day Discontinued B12 5000 MCG Tablet Sublingual as directed Sublingual Discontinued Vitamin D Discontinued Albuterol Sulfate (2.5 MG/3ML) 0.083% Nebulization Solution 3 mL as needed Inhalation every 4 hrs Discontinued Budesonide 0.25 MG/2ML Suspension 2 mL Inhalation Once a day Medication List reviewed and reconciled with the patient * Allergies:?N.K.A.no[Allergie s Verified] Objective: * Vitals:?Temp:98.2F, Ht: 67 i n, Wt:195.2lbs, HR:76/min, Oxygen sat %:96%, RR:16/min, BP:110/68mm Hg, BMI:30.57Index, Wt Change: 1.6 lbs, Ht-cm: 170.18 cm, Wt-k.54 kg. * Examination: ???General Examination: ?General Appearance?in no acute distress , male , calm and relaxed.?HEAD:?normocephalic , atraumatic.?HEART:?regular rate and rhythm , no murmurs, rubs, gallops.?LUNGS:?clear to auscultation bilaterally , no wheezes, rales, rhonchi , good air movement.?CHEST:?normal shape and expansion.?NEUROLOGIC:?alert and oriented , cognitive exam grossly normal , nonfocal , gait normal , sensory exam intact , no tremor.?PSYCH:?alert, oriented , good eye contact , mood/affect full range , speech clear.?Mental Status?Alert and oreinted x 3.? * Physical Examination:? Assessment: * Assessment: 1.?Dyslipidemia - E78.5 (Jennifer truong)???2.?Vitamin D deficiency - E55.9???3.?Type 2 diabetes mellitus without complication, without long-term current use of insulin - E11.9???4.?B12 deficiency - E53.8???5.?Screening for prostate cancer - Z12.5??? Plan: * Treatment: 2.?Vitamin D deficiency?LAB: Vitamin D, 25-Hydroxy (014679) (Ordered for 01/28/2025) Clinical Notes: Pt. counseled on taking Vit D daily with food.?? 3.?Type 2 diabetes mellitus without complication, without long-term current use of insulin?LAB: Hgb A1c with eAG Estimation (453500) (Ordered for 01/28/2025) Clinical Notes: HBA1c is at 5.5 HBA1c is no longer in the Diabetes range most likely due to Gastric bypass. Continue monitoring.?? 4.?B12 deficiency?LAB: Vitamin B12 (987660) (Ordered for 01/28/2025) Clinical Notes: Pt. counseled on taking Vit B12 daily.?? 5.?Screening for prostate ca ncer? Clinical Notes: PSA WNL.?? * Procedure Codes:? * Follow Up:?4 Months * * CAR FOREMAN Sign off status: Completed true * Provider:?Ronald Coppola MD Date:? Generated for Nadine robles/Xenia/eTransmitting on:?10/04/2024 07:44 AM RAILCAR FOREMAN History and Physical Notes * Examination Category Sub-Category Detail Notes Category Not es General Examination General Appearance in no acu te distress , male , calm and relaxed HEAD: normocephalic , atra umatic HEART: regular rate and rhy thm , no murmurs, rubs, gallops CHEST: normal shape and exp ansion LUNGS: clear to auscultatio n bilaterally , no wheezes, rales, rhonchi , good air movement NEUROLOGIC: alert and oriented , cognitive exam grossly normal , nonfocal , gait normal , sensory exam intact , no tremor PSYCH: alert, oriented , go od eye contact , mood/affect full range , speech clear Mental Status Alert and oreinted x 3
--- OUTSIDE RECORDS SUMMARY | 2024-10-04 08:45 | XMS_ITS | Patient Health Record ---
Author Organization [facility] Address [address] [place] [address] Care Team Providers Care Cashier Wrapper Name Role Phone Fernanda Cherry Unavailable [phone] Reason For Referral No Information Plan Of Treatment No Information Insurance Providers Payer Name Payer Address Payer Phone Subscriber Number Group Number Insured Name Patient Relationship to Insured Coverage Start Date Coverage End Date [facility] [address] [place] [address] [id number] Preston Clarke Self - patient is the insured Medical (General) History Medical History History ICD Code Asthma Surgical History Surgery Date(Month/Year)
== END 2024-10-04 09:05 | disposition home or self-care (01) ==
PROVIDERS: PCP Internal Medicine Cardiovascular Disease; Visit Provider Physician Assistant Surgical
DX: L98.7 Excessive and redundant skin and subcutaneous tissue (principal); Z98.84 Bariatric surgery status
CPT/HCPCS: 99214

== ENCOUNTER 2024-10-04 10:12 | Outpatient (AMB) | payer OTHER, BC, SELFPAY ==
[2024-10-04 10:16] VITALS: BMI 29.1
--- NOTE | 2024-10-04 10:16 | A.OFFVIS_ITS ---
Vital Signs 10/04/24 10:16 Height 5 ft 7 in Weight 186 lb BMI 29.1 Intake Visit Reasons: follow up Intake Note: patient presents for follow up ALEXIS. pt. non compliant Allergies No Known Allergies Allergy (Verified 10/04/24 10:23) Medication List - Last Reconciled 10/04/24 by Rossi Mcclendon MD albuterol sulfate 0.63 mg inhalation QID PRN ascorbate calcium (vitamin C) 500 mg PO DAILY budesonide (Pulmicort) 0.25 mg inhalation BID PRN calcium carbonate 600 mg PO DAILY calcium citrate 200 mg PO BID cetirizine (All Day Allergy (cetirizine)) 10 mg PO DAILY PRN cholecalciferol (vitamin D3) 125 mcg PO DAILY clotrimazole 1% (Antifungal (clotrimazole)) 1 appl topical BID [fusion MVI PO DAILY] multivitamin 1 tab PO DAILY triamcinolone acetonide 0.1% 1 appl topical BID vitamin Z24-uvvef acid 2,500-400 mcg tabs PO HPI Comments Details: 49 y/o male patient presents for follow up of sleep study.No compliance The home sleep study result was significant for severe degree of sleep apnea. The AHI was 29/hr and oxygen janet was 82%. He stopped using his CPAP many months ago - he felt like the air was blowing heavily and he had frequent arousals. Since his last sleep study he lost 100 lbs [facility] Medical History (Updated 10/04/24 @ 10:48 by Rossi Mcclendon MD) Prediabetes GERD (gastroesophageal reflux disease) Sleep apnea Asthma Morbid obesity Surgical History S/P laparoscopic sleeve gastrectomy History of esophagogastroduodenoscopy (EGD) H/O colonoscopy Family History Mother HTN (hypertension) Father HTN (hypertension) Diabetes Son No problems noted. Son No problems noted. Social History Household Members: Family Housing: Apartment Are you a primary healthcare insurance sales agent to a significant other at home: No Do you presently have visiting nurse or other home services: No Alcohol intake: never Patient Tobacco Use Status: Never used Tobacco Advance Directives Date on File: 11/04/22 service: No Current occupational status: employed Review of Systems ENT Reports Normal hearing present Neuro Reports Normal hearing present Physical Exam Vital Signs: BMI result Body Mass Index 29.1 Const General: cooperative Orientation/consciousness: patient oriented x3 Limitations: no limitations Neck Neck: Yes full ROM and Yes supple Resp Effort & Inspection: normal respiratory effort and able to speak in complete sentences Neuro General: patient oriented x3, gait normal and moves all extremities Cranial nerves: Yes Bilaterally intact EOM present, Yes Nystagmus not present, Yes Normal facial strength present, Yes Midline tongue present, Yes Symmetric palate elevation present, Yes Normal hearing present, Yes Ability to bilaterally rotate head present and Yes Ability to bilaterally elevate shoulders present Cognition (Neuro): normal cognition Gait exam (Neuro): Normal gait present Psych Appearance: grossly normal Mental Status: mental status grossly normal Speech and movement: Normal speech and movement present Affect: normal affect Attitude: cooperative Assessment & Plan Assessment & Plan (1) Sleep apnea: Comment: Lost 100 lbs since his last sleep study A severe degree of sleep apnea. The AHI was 29/hr and oxygen janet was 82%. Code(s): G47.30 - Sleep apnea, unspecified Category: Medical Qualifiers: Sleep apnea type: obstructive Qualified Code(s): G47.33 - Obstructive sleep apnea (adult) (pediatric) Plan Repeat sleep study to evaluate . Patient lost more than 100 lbs since his last sleep study Orders: Orders RT home sleep study 10/04/24 G47.33 - Obstructive sleep apnea (adult) (pediatric) Coding Level of Care Code Est Pt Level 4 (02428) Diagnoses Obstructive sleep apnea syndrome G47.33 Sleep apnea type: obstructive
== END 2024-10-04 10:50 | disposition home or self-care (01) ==
PROVIDERS: PCP Internal Medicine Cardiovascular Disease; Visit Provider Psychiatry & Neurology Neurology
DX: G47.33 Obstructive sleep apnea (adult) (pediatric) (principal)
CPT/HCPCS: 99214

== ENCOUNTER 2024-11-01 09:29 | Outpatient (AMB) | payer OTHER, BC, SELFPAY ==
--- NOTE | 2024-11-01 08:12 | MHC.OFFVISWM ---
VS Expanded 11/01/24 08:14 Height 5 ft 7 in Weight 175 lb 7 oz BMI 27.5 Body Fat % 24.3 Body Fat Mass 42.7 Fat Free Mass 133 Visceral Fat Rating 10 Body Water % 54.7 Body Water Mass 96.1 Muscle Mass/Score 126.3 Basal Metabolic Rate/Score 1,678 Intake Visit Reasons: (OV) PO LSG 01/07/23 Allergies No Known Allergies Allergy (Verified 10/04/24 10:23) HPI Comments Details: This?a?49?yo male who is s/p LSG without hiatal hernia repair on?01/07/23. Presents for 1 year 10 month post op visit. Weight today is 175.7 pounds, with a BMI of 27.5.? There has been a 111.9 pound weight loss,(initial weight 287.6 pounds) since starting the program on 04/29/23 reflecting a 38.9% total body weight loss and a weight loss of 86.8 pounds since surgery (operative weight 262.5 pounds) reflecting a 33% TBWL since surgery.? No complaints of nausea, emesis, abdominal pain or reflux. Reports infrequent but normal bowel movements every 1-2 with the use of fiber gummies and coalce.? He states that he has noticed an intermittent rash to the skin folds of his abdomen. This is somewhat uncomfortable and itching and burning. He additionally states that he has recently developed increased rash in the groin area due to excess skin of his medial thighs. He is applying clotrimazole cream with resolution although only to have recurrence. [place] and is trying to do the best that he can to minimize recurrence of rash with increased hygiene and barriers between skin folds. He states he has had 2-3 episodes of rash per month over the last 6 months, treated with antifungal cream BID for 7 days each. 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 We added topical steroid to assist in the treatment plans at his last visit approximately 3 months ago. He states that he has been applying both the antifungal and steroid cream with success in treatment of his rash however even with the addition of the steroid cream, upon completion, he would get a recurrence of rash. The frequency of his recurrence continues to be approximately 2-3 times per month as he does work in a hot climate. The impact on his ADLs has been significant as he now needs to adjust his daily hygiene to include washing the area underneath the abdominal fold 4-5 times per day. He also has difficulty with clothing fitting properly. Present meal plan includes: equate ready to drink shake (30 g per shake) half the container mixed with 6 oz of unsweetened almond milk in the morning 2 meals with 7 forks of protein and 7 forks of vegetables each. drinking 64 oz water Exercise routine includes: 4-5 x per week 30-45 min of treadmill 350 calories burned. walks a lot for his job at [employer] Medical History (Updated 10/04/24 @ 10:48 by Rossi Mcclendon MD) Prediabetes GERD (gastroesophageal reflux disease) Sleep apnea Asthma Morbid obesity Surgical History S/P laparoscopic sleeve gastrectomy History of esophagogastroduodenoscopy (EGD) H/O colonoscopy Family History Mother HTN (hypertension) Father HTN (hypertension) Diabetes Son No problems noted. Son No problems noted. Social History Household Members: Family Housing: Apartment Are you a primary director critical care to a significant other at home: No Do you presently have visiting nurse or other home services: No Alcohol intake: never Patient Tobacco Use Status: Never used Tobacco Advance Directives Date on File: 11/04/22 service: No Current occupational status: employed Telehealth Telehealth Telehealth Platform: Telephone Location of provider rendering services: practice address Location of patient: other Patient Identification confirmed using: Name, : Yes Telehealth method: voice only Patient verbally consented to treatment: Yes Patient verbally consented to billing insurance company: Yes Patient informed of any privacy concerns related to visit: Yes Minutes spent on Phone/Video with Pt.: 15 Assessment & Plan Assessment & Plan (1) S/P laparoscopic sleeve gastrectomy: Code(s): Z98.84 - Bariatric surgery status Category: Surgical Plan: Patient has done very well. He is following his meal plan. He is incorporated more exercise [place] He will continue to follow accordingly. Encouraged to continue to send weight is weekly and text with any questions or concerns. (2) Excess skin: Code(s): L98.7 - Excessive and redundant skin and subcutaneous tissue Category: Medical Plan: Patient has had 111.9 lb weight loss, or a proximally 38.9% total body weight loss since joining our program. 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 This has been treated with antifungal and corticosteroid topical treatments. Treatments were 7 days, twice daily application. These rashes would recur between 2 or 3 times per month over the last 4 months. He has had a negative impact on his activities of daily living such that he requires now 4-5 times of washing the area per day for hygiene to decrease odor and wetness. He additionally has difficulty with clothing fitting properly. As a result of his significant weight loss and excess skin, we are recommending medically necessary skin removal surgery of his abdomen.
[2024-11-01 08:14] VITALS: BMI 27.5
== END 2024-11-01 09:29 | disposition home or self-care (01) ==
LOC: HO.HBS 09:29
PROVIDERS: PCP Internal Medicine Cardiovascular Disease; Visit Provider Physician Assistant Surgical
DX: L98.7 Excessive and redundant skin and subcutaneous tissue (principal); Z90.3 Acquired absence of stomach [part of]; Z98.84 Bariatric surgery status
CPT/HCPCS: 99213

== ENCOUNTER 2024-12-01 08:03 | Outpatient (AMB) | payer OTHER, BC, SELFPAY ==
--- OUTSIDE RECORDS SUMMARY | 2024-12-01 08:09 | XMS_ITS | Patient Health Record ---
Author Organization [facility] Address [address] [place] [address] Care Team Providers Care Lithographic Stripper Name Role Phone CoppolaRonald Primary Care Provider Russell Garduno Unavailable [phone] Allergies No Known Allergies Results Component Value Reference Range Notes *Vitamin D, 25-Hydroxy (0819 50) Reviewed date:05/10/2024 02:15:32 PM Interpretation: Performing Lab:[facility] [place], [facility] [place], [place] [id number], Phone - [phone], Director - Judie Notes/Report: Vitamin D, 25-Hydroxy 36.0 30.0-100.0 ng/mL Vitamin D deficiency has been defined by the [place] of Medicine and an Endocrine Society practice guideline as a level of serum 25-OH vitamin D less than 20 ng/mL (1,2). The Endocrine Society went on to further define vitamin D insufficiency as a level between 21 and 29 ng/mL (2). 1. IOM ([place] of Medicine). 2010. Dietary reference intakes for calcium and D. [place]: The National Academies Press. 2. Preet MF, Munira NC, Angelika PATRICIO, et al. Evaluation, treatment, and prevention of vitamin D deficiency: an Endocrine Society clinical practice guideline. JCEM. 2010; 96(7):1911-30. *Hemogloblin A1c w/ eAG Est (402883) Reviewed date:05/10/2024 02:15:32 PM Interpretation: Performing Lab:[facility] [address] [id number], Phone - [phone], Director - [facility] Notes/Report: Hemoglobin A1c 5.5 4.8-5.6 % . Prediabetes: 5.7 - 6.4 Diabetes: >6.4 Glycemic control for adults with diabetes: <7.0 Estim. Avg Glu (eAG) 111 *Vitamin B12 (355511) Reviewed date:05/10/2024 02:15:32 PM Interpretation: Performing Lab:[address] [id number], Phone - [phone], Director - [facility] Notes/Report: Vitamin B12 221 521-2294 pg/mL *Lipid Panel (156232) Reviewed date:05/10/2024 02:15:32 PM Interpretation: Performing Lab:[address] [id number], Phone - [phone], Director - [facility] Notes/Report: Cholesterol, Total 148 100-199 mg/dL Triglycerides 62 0-149 mg/dL HDL Cholesterol 46 >39 mg/dL VLDL Cholesterol Boby 13 5-40 mg/dL LDL Chol Calc (NIH) 89 0-99 mg/dL *PSA, Serum (147674) (Not ye t reviewed by provider) Interpretation: Performing Lab:[address] [id number], Phone - [phone], Director - [facility] Notes/Report: Prostate Specific Ag 0.9 0.0-4.0 ng/mL Zahida ECLIA methodology. . According to the [place] Urological Association, Serum PSA should decrease and [...] (Not yet reviewed by provider) Interpretation: Performing Lab:[address] [id number], Phone - [phone], Director - Judie Notes/Report: Vitamin D, 25-Hydroxy 33.0 30.0-100.0 ng/mL Vitamin D deficiency has been defined by the [place] of Medicine and an Endocrine Society practice guideline as a level of serum 25-OH vitamin D less than 20 ng/mL (1,2). The Endocrine Society went on to further define vitamin D insufficiency as a level between 21 and 29 ng/mL (2). 1. IOM ([place] of Medicine). 2010. Dietary reference intakes for calcium and D. [place]: The National Academies Press. 2. Preet MF, Munira DAVEY, Angelika PATRICIO, et al. Evaluation, treatment, and prevention of vitamin D deficiency: an Endocrine Society clinical practice guideline. JCEM. 2010; 96(7):1911-30. *Hemogloblin A1c w/ eAG Est (489559) (Not yet reviewed by provider) Interpretation: Performing Lab[facility] [address] [address] [place], [place] [id number], Phone - [phone], Director - Judie Notes/Report: Hemoglobin A1c 5.4 4.8-5.6 % . Prediabetes: 5.7 - 6.4 Diabetes: >6.4 Glycemic control for adults with diabetes: <7.0 Estim. Avg Glu (eAG) 108 *Vitamin B12 (324345) (Not y et reviewed by provider) Interpretation: Performing Lab:[facility] [place], [facility] [address], [place] [id number], Phone - [phone], Director - Judie Notes/Report: Vitamin B12 978 082-3179 pg/mL *Lipid Panel (555259) (Not y et reviewed by provider) Interpretation: Performing Lab:[facility] [place], [facility] [address] [place], [place] [id number], Phone - [phone], Director - Judie Notes/Report: Cholesterol, Total 178 100-199 mg/dL Triglycerides 52 0-149 mg/dL HDL Cholesterol 47 >39 mg/dL VLDL Cholesterol Boby 10 5-40 mg/dL LDL Chol Calc ([facility]) 121 0-99 mg/dL *Urinalysis, Routine Urinaly sis, by dip stick or tablet reagent Reviewed date:10/20/2024 09:51:16 AM Interpretation: Performing Lab: Notes/Report: Leukocytes Neg Urine-Color Yellow Appearance Cloudy Specific [place] 1.025 pH 6.0 Glucose Neg Protein 0.14 Occult Blood Neg Bilirubin 1+ Urobilinogen,Semi-Qn 3.5 Nitrite, Urine Neg Ketones Neg *Vitamin D, 25-Hydroxy (0819 50) (Not yet reviewed by provider) Interpretation: Performing Lab:[facility] [address] [id number], Phone - [phone], Director - MDYeison Notes/Report: Vitamin D, 25-Hydroxy 36.0 30.0-100.0 ng/mL Vitamin D deficiency has been defined by the [place] of Medicine and an Endocrine Society practice guideline as a level of serum 25-OH vitamin D less than 20 ng/mL (1,2). The Endocrine Society went on to further define vitamin D insufficiency as a level between 21 and 29 ng/mL (2). 1. IOM ([place] of Medicine). 2010. Dietary reference intakes for calcium and D. [place]: The National Academies Press. 2. Preet MF, Munira NC, Angelika PATRICIO, et al. Evaluation, treatment, and prevention of vitamin D deficiency: an Endocrine Society clinical practice guideline. JCEM. 2010; 96(7):1911-30. *Vitamin B12 (913940) (Not y et reviewed by provider) Interpretation: Performing Lab:[facility], [address] [place] [id number], Phone - [phone], Director - Judie Notes/Report: Vitamin B12 094 085-9201 pg/mL *PSA, Serum (770479) Reviewed date:09/28/2024 03:26:16 PM Interpretation: Performing Lab: Notes/Report: Prostate Specific Ag 1.0 0.0-4.0 ng/mL [facility] (952744) Reviewed date:09/28/2024 03:26:16 PM Interpretation: Performing Lab: [...] Boby 13 5-40 mg/dL LDL Chol Calc ([facility]) 124 0-99 mg/dL T. Chol/HDL Ratio 3.8 [...] Status Risk Notes Problem Vitamin B deficiency (03352334) Deficiency of other specified B group vitamins (E53.8) Active confirmed Problem Obesity (001270539) Obesity, unspecified (E66.9) Active confirmed Problem History of bariatric surgical procedure (627565154) Bariatric surgery status (Z98.84) Active confirmed Problem 088305410 Dyslipidemia (E78.5) Active confirmed Problem Asthma (961993291) Asthma (J45.909) Active confirmed Problem 96969948 Vitamin D deficiency (E55.9) Active confirmed Problem 317303896 Morbid obesity (E66.01) Active confirmed Problem 42788071 Migraine without status migrainosus, not intractable, unspecified migraine type (G43.909) Active confirmed Problem 29262575 Hypogonadism mal e (E29.1) Active confirmed Problem 795541755 Mild persistent asthma without complication (J45.30) Active confirmed Problem 797614461 Other elevated white blood cell (WBC) count (D72.828) Active confirmed Problem 06756146 Lymphocytosis (D72.820) Active confirmed Problem 400040892 Obesity (BMI 30-39.9) (E66.9) Active confirmed Problem 682294520 House dust mite allergy (Z91.09) Active confirmed Problem 658779946 Type 2 diabetes mellitus without complication, without long-term current use of insulin (E11.9) Active confirmed Problem 16573340 Right bundle branch block (RBBB) (I45.10) Active confirmed Problem 372667752 Mild intermitten t asthma, unspecified whether complicated (J45.20) Active confirmed Problem 388958106 Seasonal allergi c rhinitis, unspecified trigger (J30.2) Active confirmed Problem Hepatic fibrosis (disorder) (38249311) Hepatic fibrosis, unspecified (K74.00) Active confirmed Vital [...] 11/16/2024 Encounters Encounter Location Date Provider Diagnosis [place] [address] [place] [address] 03/18/2024 Ronald Coppola B12 deficiency E53.8 ; Dyslipidemia E78.5 ; Vitamin D deficiency E55.9 and Type 2 diabetes mellitus without complication, without long-term current use of insulin E11.9 [place] [address] 03/25/2024 Ronald Coppola Dyslipidemia E78.5 ; Vitamin D deficiency E55.9 ; Type 2 diabetes mellitus without complication, without long-term current use of insulin E11.9 ; B12 deficiency E53.8 and Screening for prostate cancer Z12.5 [place] [address] [address] 04/14/2024 Russell Laureen Migraine without status migrainosus, not intractable, unspecified migraine type G43.[address] [address] 06/07/2024 Russell Laureen Type 2 diabetes mellitus without complication, without long-term current use of insulin E11.9 ; Vitamin D deficiency E55.9 ; Dyslipidemia E78.5 ; B12 deficiency E53.8 and Screening for prostate cancer Z12.[address] [address] 06/16/2024 Ronald Coppola Dyslipidemia E78.5 ; Vitamin D deficiency E55.9 ; Type 2 diabetes mellitus without complication, without long-term current use of insulin E11.9 ; B12 deficiency E53.8 and Screening for prostate cancer Z12.[address] [place] [address] 08/17/2024 Ronald Coppola Painful urination R30.9 [place] [address] [address] 09/24/2024 Russell Laureen B12 deficiency E53.8 ; Vitamin D deficiency E55.9 and Encounter for screening Z13.9 [place] [address] [address] 09/30/2024 Ronald Coppola Dyslipidemia E78.5 ; Vitamin D deficiency E55.9 ; Type 2 diabetes mellitus without complication, without long-term current use of insulin E11.9 ; B12 deficiency E53.8 and Screening for prostate cancer Z12.[address] [address] 11/16/2024 Ronald Coppola Sports physical Z02. 5 and Right bundle branch block (RBBB) I45.[address] [address] 03/02/2024 Ronald Coppola Medication refill Z76.0 Assessments [...] RBBB. States that he was referred to Inside Sales Representative and reprots of having multitudes of tests [...] Test Name Order Date Vitamin A, Serum (550426) 07/08/2023 *Insulin (346491) 07/08/2023 *CBC With Differential/Platelet (285275) 07/08/2023 *Iron and TIBC (159867) 07/08/2023 *Vitamin D, 25-Hydroxy (125389) 07/08/20 23 Hemoglobin A1c (636338) 07/08/2023 *C-Reactive Protein, Cardiac (969584) *Lipid Panel (584202) 07/08/2023 Basic Metabolic Panel (8) (046000) 07/08 Vitamin B12 and Folate (565430) 07/08/20 23 *Ferritin, Serum (603276) 07/08/2023 TSH reflex to T4F 07/08/2023 *PSA, Serum (164541) 06/07/2024 *Vitamin D, 25-Hydroxy (313438) 10/28/20 24 *Hemogloblin A1c w/ eAG Est (558654) *Vitamin B12 (762637) 06/07/2024 *Lipid Panel (587158) 06/07/2024 *Vitamin D, 25-Hydroxy (370190) 09/24/19 25 *Vitamin B12 (614243) 09/24/2024 Next Appt Details Provider Name:Ronald Coppola, 01/28/2025 08:00:00 AM, [address], [address], [place], [address], Provider Name:Ronald Coppola, 02/03/2025 10:00:00 AM, [address], [place], [address], Insurance Providers Payer Name Payer Address Payer Phone Subscriber Number Group Number Insured Name Patient Relationship to Insured Coverage Start Date Coverage End Date [facility] [address] [place] [address] [id number] Preston Nuñez Self - patient is the insured [address] [facility] [address] [place] [address] [id number] Preston Nuñez Self - patient is the insured [address] [facility] [address] [place] [address] [id number] Preston Nuñez Self - patient is the insured 7 4 Medications Administered Medication Instructions Date of Administration Dosage Notes Ketorolac Tromethamine 04/14/2024 2 mL Medical (General) History Medical History History ICD Code Asthma Seasonal allergies Obesity Diabetes Migraine headaches Surgical History Surgery Date(Month/Year) Colonoscopy 2021 Gastric bypass surgery (December 2022).
--- OUTSIDE RECORDS SUMMARY | 2024-12-01 08:10 | XMS_ITS ---
Author Organization [facility] Address [address] [facility] [address] [place] [address] Care Team Providers Care Central Sterilization Technician Name Role Phone Ronald Coppola Primary Care [...] 09/30/2024 Encounters Encounter Location Date Provider Diagnosis [place] [id number] [facility] [address] [place] [address] 09/30/2024 Ronaldelvin Coppola Dyslipidemia E78.5 ; Vitamin [...] Test Name Order Date *Vitamin D, 25-Hydroxy (746749) 01/29/20 25 *Hemogloblin A1c w/ eAG Est (797490) *Vitamin B12 (749608) 01/28/2025 *Lipid Panel (691701) 01/28/2025 Next Appt Details Follow Up: 4 Months, Reason: Provider Name:Ronald Coppola, 01/28/2025 08:00:00 AM, [address], [place] [address], [place], [address], Provider Name:Ronald Coppola, 02/03/2025 10:00:00 AM, [address], [address], [place], [address], Progress Notes * Preston STARR MDOB: (49 yo M)Acc No.[id number]:09/30/2024 Progress Note - Follow-Up Patient:?Henrry STARR Edgar Provider:?Ronald Coppola MD :1975???Age:49 Y???Sex:Male Howard e:09/30/2024 External Visit ID:[id number] Address:[facility] [address] 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 * Social History:?Tobacco Use:?Tobacco [...] Treatment: 2.?Vitamin D deficiency?LAB: Vitamin D, 25-Hydroxy (562154) (Ordered for 01/28/2025) Clinical Notes: Pt. counseled on taking Vit D daily with food.?? 3.?Type 2 diabetes mellitus without complication, without long-term current use of insulin?LAB: Hgb A1c with eAG Estimation (559828) (Ordered for 01/28/2025) Clinical Notes: HBA1c is at 5.5 HBA1c is no longer in the Diabetes range most likely due to Gastric bypass. Continue monitoring.?? 4.?B12 deficiency?LAB: Vitamin B12 (655770) (Ordered for 01/28/2025) Clinical Notes: Pt. counseled on taking Vit B12 daily.?? 5.?Screening for prostate ca ncer? Clinical Notes: PSA WNL.?? * Procedure Codes:? * Follow Up:?4 Months * * SCIENCE AND IOT MANAGER Sign off status: Completed true * Provider:?Ronald Coppola MD Date:? Generated for Nadine robles/Xenia/Neryransmitting on:?12/01/2024 07:09 AM CDT History and Physical Notes * Examination [...]
--- OUTSIDE RECORDS SUMMARY | 2024-12-01 08:10 | XMS_ITS ---
Author Organization [facility] Address [address] [place] [address] Care Team Providers Care Cylinder Tester Name Role Phone Ronald Coppola Primary Care Provider [phone] Allergies No Known Allergies REASON FOR VISIT [...] 11/16/2024 Encounters Encounter Location Date Provider Diagnosis [facility] [place] [address] [address] [facility] [address] [place] [address] 11/16/2024 Ronald Coppola Sports physical Z02. 5 [...] RBBB. States that he was referred to Internet Marketing Assistant and reprots of having multitudes of tests (including stress test) and all were benign. Plan Of Treatment Next Appt Details Follow Up: prn, Reason: Provider Name:Ronald Coppola, 01/28/2025 08:00:00 AM, [address], [place] [address], [place], [address], Provider Name:Ronald Coppola, 02/03/2025 10:00:00 AM, [address], [facility] [address], [place], [address], Progress Notes * Preston STARR MDOB: (49 yo M)Acc No.[id number]:11/16/2024 Progress Note - Follow-Up Patient:?Vandana STARRfaby Hernández Provider:?Ronald Coppola MD :1975???Age:49 Y???Sex:Male Howard e:11/16/2024 External Visit ID:[id number] Address:[address] [place] [address], [facility] 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 * Social History:?Tobacco Use:?Tobacco [...] RBBB. States that he was referred to Internet Marketing Assistant and reprots of having multitudes of tests (including stress test) and all were benign.?? * Procedure Codes:? * Follow Up:?prn * * Sign off status: Completed true * Provider:?Ronald Coppola MD Date:? Generated for Rosai margaret/Xenia/eTransmitting on:?12/01/2024 07:09 AM CDT History and Physical [...]
--- OUTSIDE RECORDS SUMMARY | 2024-12-01 08:10 | XMS_ITS ---
Author Organization [facility] Address [address] [place] [address] Care Team Providers Care It Risk Advisor Name Role Phone Ronald Coppola Primary Care Provider Russell Garduno Unavailable [phone] Results Component Value Reference Range Notes *Vitamin D, 25-Hydroxy (0819 50) (Not yet reviewed by provider) Interpretation: Performing Lab:[facility], [facility], [place] [id number], Phone - [phone], Director - Judie Notes/Report: Vitamin D, 25-Hydroxy 36.0 30.0-100.0 ng/mL Vitamin D deficiency has been defined by the [place] of [employer] and an Endocrine Society practice guideline as a level of serum 25-OH vitamin D less than 20 ng/mL (1,2). The Endocrine Society went on to further define vitamin D insufficiency as a level between 21 and 29 ng/mL (2). 1. IOM ([place] of [employer]). 2010. Dietary reference intakes for calcium and D. [place]: The National Academies Press. 2. Preet MF, Munira NC, Carlene-Dayo PATRICIO, et al. Evaluation, treatment, and prevention of vitamin D deficiency: an Endocrine Society clinical practice guideline. JCEM. 2010; 96(7):1911-30. *Vitamin B12 (576714) (Not y et reviewed by provider) Interpretation: Performing Lab:[facility], [place] [id number], Phone - [phone], Director - Judie Notes/Report: Vitamin B12 060 294-9141 pg/mL REASON FOR VISIT PHA draw + [...] 09/24/2024 Encounters Encounter Location Date Provider Diagnosis [facility] [address] [facility] [address] [place] [address] 09/24/2024 Russell Garduno B12 deficiency E53.8 ; Vitamin D deficiency E55.9 and Encounter for screening Z13.9 Assessments Encounter Date Diagnosis (ICD Code) Assessment Notes Treatment Notes Treatment Clinical Notes Section Notes 09/24/2024 B12 deficiency (ICD-10 - E53.8) 09/24/2024 Vitamin D deficiency (ICD-10 - E55.9) 09/24/2024 Encounter for screening (ICD-10 - Z13.9) Plan Of Treatment Pending Test Test Name Order Date *Vitamin D, 25-Hydroxy (183046) 09/24/19 25 *Vitamin B12 (142539) 09/24/2024 Next Appt Details Follow Up: prn, Reason: Provider Name:Ronald Coppola, 01/28/2025 08:00:00 AM, [address], [place], [address], Provider Name:Ronald Coppola, 02/03/2025 10:00:00 AM, [address], [facility] [address], [place], [address], Procedure Notes * Category Sub-Category Detail Notes Venipuncture Venipuncture: 21g Straight nee dle Draw Attempts #:: 1 Draw Site Site:: Right AC Disposition Disposition:: Pt tolerated well Progress Notes * Preston STARR MDOB: (49 yo M)Acc No.[id number]:09/24/2024 PHA Draw Note Patient:?SADETAZ Henrry dany Hernández Provider:?Russell Garduno, :1975???Age:49 Y???Sex:Male Howard e:09/24/2024 External Visit ID:[id number] Address:[address] [place] [address] Pcp:Ronald Coppola Check Out:08:02 AM 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 * Procedure Codes:?68937 VITAM IN [id number] VENIPUNCT, ROUTINE*68897 ASSAY OF VITAMIN [id number] GENERAL HEALTH PANEL * Follow Up:?prn * * TING SUPERVISOR Sign off status: Completed true * Provider:?Russell Garduno, DO Date:? 025 Generated for Nadine robles/Xenia/Sidsmitting on:?12/01/2024 07:09 AM CDT
--- OUTSIDE RECORDS SUMMARY | 2024-12-01 08:10 | XMS_ITS | Patient Health Record ---
Author Organization [facility] - So [facility] Address [address] [place] [address] Care Team Providers Care Resolution Manager Name Role Phone Fernanda Cherry Unavailable [phone] Reason For Referral No Information Plan Of Treatment No Information Insurance Providers Payer Name Payer Address Payer Phone Subscriber Number Group Number Insured Name Patient Relationship to Insured Coverage Start Date Coverage End Date [facility] [address] [place] [address] [id number] Preston Clarke Self - patient is the insured Medical (General) History Medical History History ICD Code Asthma Surgical History Surgery Date(Month/Year)
[2024-12-01 08:20] VITALS: BMI 27.9
--- NOTE | 2024-12-01 08:20 | A.OFFVIS_ITS ---
VS Expanded 12/01/24 08:20 Height 5 ft 7 in Weight 178 lb 3 oz BMI 27.9 Intake Visit Reasons: TV Pre Op Panniculectomy 12/14/24 Allergies No Known Allergies Allergy (Verified 12/01/24 08:20) Medication List - Last Reconciled 12/01/24 by Albert Domínguez MD albuterol sulfate 0.63 mg inhalation QID PRN ascorbate calcium (vitamin C) 500 mg PO DAILY budesonide (Pulmicort) 0.25 mg inhalation BID PRN calcium carbonate 600 mg PO DAILY calcium citrate 200 mg PO BID cephalexin 500 mg PO Q12H cetirizine (All Day Allergy (cetirizine)) 10 mg PO DAILY PRN cholecalciferol (vitamin D3) 125 mcg PO DAILY clotrimazole 1% (Antifungal (clotrimazole)) 1 appl topical BID docusate sodium (Colace) 100 mg PO DAILY [fusion MVI PO DAILY] multivitamin 1 tab PO DAILY ondansetron 4 mg PO Q12H triamcinolone acetonide 0.1% 1 appl topical BID vitamin O49-arytv acid 2,500-400 mcg tabs PO HPI HPI TV Pre Op Panniculectomy 12/14/24: Details: Start time: 8.06am, End time: 8.36am ?I spent 25 minutes speaking with the patient on the phone plus an additional 5 minutes reviewing and updating records for a total of 30 minutes HPI Comments Details: Overall weight loss: 109.3lbs, or 38% TBWL Is doing 2 Equate premade shakes (4oz of Equate mixed with 4oz almond milk), one meal (7 forks of meat and 7 forks of salad or vegetables). Occasionally is using the Zone Perfect protein bars Exercise: is doing treadmill 300-400 calories per day PFSH Medical History (Updated 12/01/24 @ 08:18 by Albert Domínguez MD) Postgastrectomy malabsorption Prediabetes GERD (gastroesophageal reflux disease) Sleep apnea Asthma Morbid obesity Surgical History S/P laparoscopic sleeve gastrectomy History of esophagogastroduodenoscopy (EGD) H/O colonoscopy Family History Mother HTN (hypertension) Father HTN (hypertension) Diabetes Son No problems noted. Son No problems noted. Social History Household Members: Family Housing: Apartment Are you a primary acute care assistant to a significant other at home: No Do you presently have visiting nurse or other home services: No Alcohol intake: never Patient Tobacco Use Status: Never used Tobacco Advance Directives Date on File: 11/04/22 service: No Current occupational status: employed Telehealth Telehealth Telehealth Platform: Telephone Location of provider rendering services: practice address Location of patient: address on file Patient Identification confirmed using: Name, : Yes Telehealth method: voice only Patient verbally consented to treatment: Yes Patient verbally consented to billing insurance company: Yes Patient informed of any privacy concerns related to visit: Yes Minutes spent on Phone/Video with Pt.: 30 Assessment & Plan Assessment & Plan (1) Excess skin: Code(s): L98.7 - Excessive and redundant skin and subcutaneous tissue Category: Medical Plan: 1. Plan for panniculectomy. Risks of infection, bleeding, asymmetry, wound dehiscence and blood clots were discussed with the patient. 2. You will have a drain the abdomen that may stay a few weeks before it may be removed 3. You will need to be doing sponge baths the first 1-2 weeks. No showers. You need to have help at home to get you up and limit your activities as much as possible for at least the 4-6 weeks after surgery 4. We will arrange for a visiting nurse to come at home to help you with dressing changes and send me pictures of the procedures. We will send at your home supplies for the dressing changes. 5. Change nutritional plan to 2oz of Equate shake mixed with 6oz almond milk at 7am-9am, one Zone Perfect protein bar at 10am-12pm, another 2oz of Equate shake mixed with 6oz almond milk at 1pm-3pm, one Zone Perfect protein bar at 4pm-6pm, dinner at 7pm (4 forks of protein and 4 forks of salad or vegetables). If needed, do another HALF bar at 9pm-10pm if you feel hungry. This will improve weight loss and healing after surgery. 6. Continue all vitamins. Start the stool softener Colace one tablet per day, daily. 7. 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 Risks and complications were discussed the possibility of bleeding that may require transfusion, loss of the umbilicus, wound dehiscence or infection, dog ears , flap asymmetry. We also discussed the importance of strict avoidance of weight lifting. 10. Avoid aspirin, motrin, ibuprofen, Aleve, Advil, Naproxyn. Only Tylenol is OK Orders: Orders Comprehensive Met. Panel Today K91.2 - Postsurgical malabsorption, not elsewhere classified, Z90.3 - Acquired absence of stomach [part of] Vitamin A Today K91.2 - Postsurgical malabsorption, not elsewhere classified, Z90.3 - Acquired absence of stomach [part of] Hemoglobin A1c Today K91.2 - Postsurgical malabsorption, not elsewhere classif ied, Z90.3 - Acquired absence of stomach [part of] Prothrombin Time INR Today K91.2 - Postsurgical malabsorption, not elsewhere classified, Z90.3 - Acquired absence of stomach [part of] Vitamin B1 Today K91.2 - Postsurgical malabsorption, not elsewhere classified, Z90.3 - Acquired absence of stomach [part of] Lipid Panel Today K91.2 - Postsurgical malabsorption, not elsewhere classified, Z90.3 - Acquired absence of stomach [part of] Type and Screen Today K91.2 - Postsurgical malabsorption, not elsewhere classified, Z90.3 - Acquired absence of stomach [part of] Vitamin B12 Today K91.2 - Postsurgical malabsorption, not elsewhere classified, Z90.3 - Acquired absence of stomach [part of] C Reactive Protein Today K91.2 - Postsurgical malabsorption, not elsewhere classified, Z90.3 - Acquired absence of stomach [part of] Partial Thromboplastin Time Today K91.2 - Postsurgical malabsorption, not elsewhere classified, Z90.3 - Acquired absence of stomach [part of] Zinc Today K91.2 - Postsurgical malabsorption, not elsewhere classified, Z90.3 - Acquired absence of stomach [part of] TSH reflex Free T4 Today K91.2 - Postsurgical malabsorption, not elsewhere classified, Z90.3 - Acquired absence of stomach [part of] Vitamin D 25-OH Total Today K91.2 - Postsurgical malabsorption, not elsewhere classified, Z90.3 - Acquired absence of stomach [part of] Complete Blood Count Auto Diff Today K91.2 - Postsurgical malabsorption, not elsewhere classified, Z90.3 - Acquired absence of stomach [part of] Ferritin Today K91.2 - Postsurgical malabsorption, not elsewhere classified, Z90.3 - Acquired absence of stomach [part of] Insulin Today K91.2 - Postsurgical malabsorption, not elsewhere classified, Z90.3 - Acquired absence of stomach [part of] IRON PROFILE Today K91.2 - Postsurgical malabsorption, not elsewhere classif ied, Z90.3 - Acquired absence of stomach [part of] Medications: New docusate sodium (Colace) 100 mg PO DAILY 90 caps 0RF K59.00 - Constipation, unspecified cephalexin 500 mg PO Q12H 60 caps 2RF M79.3 - Panniculitis, unspecified ondansetron 4 mg PO Q12H 20 tabs 0RF nausea and vomiting R11.0 - Nausea
== END 2024-12-01 08:37 | disposition home or self-care (01) ==
LOC: HO.HBS 08:03
PROVIDERS: Visit Provider Surgery
DX: L98.7 Excessive and redundant skin and subcutaneous tissue (principal)
CPT/HCPCS: 99499

== ENCOUNTER → 2024-12-10 07:18 | Outpatient (BNVA) | payer OTHER, BC, SELFPAY | PROVIDERS: PCP Internal Medicine Cardiovascular Disease; Visit Provider Surgery ==

== ENCOUNTER → 2024-12-13 14:16 | Outpatient (REF) | payer OTHER, BC, SELFPAY ==
--- OUTSIDE RECORDS SUMMARY | 2024-12-13 15:49 | XMS_ITS | Patient Health Record ---
Author Organization [facility] Urgent Care - So [facility] Address [address] [place] [address] Care Team Providers Care Harnessmaker Apprentice Name Role Phone Fernanda Cherry Unavailable [phone] Reason For Referral No Information Plan Of Treatment No Information Insurance Providers Payer Name Payer Address Payer Phone Subscriber Number Group Number Insured Name Patient Relationship to Insured Coverage Start Date Coverage End Date [facility] [address] [place] [address] [id number] Preston Clarke Self - patient is the insured Medical (General) History Medical History History ICD Code Asthma Surgical History Surgery Date(Month/Year)
--- OUTSIDE RECORDS SUMMARY | 2024-12-13 15:49 | XMS_ITS | Patient Health Record ---
Author Organization [facility] Address [address] [facility] [address] [place] [address] Care Team Providers Care Assistant Professor Of Nursing Name Role Phone CoppolaRonald Primary Care Provider Russell Garduno Unavailable [phone] Allergies No Known Allergies Results Component Value Reference Range Notes *Vitamin D, 25-Hydroxy (0819 50) Reviewed date:05/10/2024 02:15:32 PM Interpretation: Performing Lab:[facility] [place], [facility] [place], [place] [id number], Phone - [phone], Director - Judie Notes/Report: Vitamin D, 25-Hydroxy 36.0 30.0-100.0 ng/mL Vitamin D deficiency has been defined by the [place] [employer] and an Endocrine Society practice guideline as a level of serum 25-OH vitamin D less than 20 ng/mL (1,2). The Endocrine Society went on to further define vitamin D insufficiency as a level between 21 and 29 ng/mL (2). 1. IOM ([place] [employer]). 2010. Dietary reference intakes for calcium and D. [place]: The National Academies Press. 2. Preet MF, Munira NC, Angelika PATRICIO, et al. Evaluation, treatment, and prevention of vitamin D deficiency: an Endocrine Society clinical practice guideline. JCEM. 2010; 96(7):1911-30. *Hemogloblin A1c w/ eAG Est (525188) Reviewed date:05/10/2024 02:15:32 PM Interpretation: Performing Lab:[facility] [address] [id number], Phone - [phone], Director - [facility] Notes/Report: Hemoglobin A1c 5.5 4.8-5.6 % . Prediabetes: 5.7 - 6.4 Diabetes: >6.4 Glycemic control for adults with diabetes: <7.0 Estim. Avg Glu (eAG) 111 *Vitamin B12 (216987) Reviewed date:05/10/2024 02:15:32 PM Interpretation: Performing Lab:[address] [id number], Phone - [phone], Director - [facility] Notes/Report: Vitamin B12 697 220-7041 pg/mL *Lipid Panel (599872) Reviewed date:05/10/2024 02:15:32 PM Interpretation: Performing Lab:[address] [id number], Phone - [phone], Director - [facility] Notes/Report: Cholesterol, Total 148 100-199 mg/dL Triglycerides 62 0-149 mg/dL HDL Cholesterol 46 >39 mg/dL VLDL Cholesterol Boby 13 5-40 mg/dL LDL Chol Calc (NIH) 89 0-99 mg/dL *PSA, Serum (656512) (Not ye t reviewed by provider) Interpretation: Performing Lab:[address] [id number], Phone - [phone], Director - [facility] Notes/Report: Prostate Specific Ag 0.9 0.0-4.0 ng/mL Zahida ECLIA methodology. . According to the [place] [employer], Serum PSA should decrease and [...] (Not yet reviewed by provider) Interpretation: Performing Lab:[address] [id number], Phone - [phone], Director - Judie Notes/Report: Vitamin D, 25-Hydroxy 33.0 30.0-100.0 ng/mL Vitamin D deficiency has been defined by the [place] [employer] and an Endocrine Society practice guideline as a level of serum 25-OH vitamin D less than 20 ng/mL (1,2). The Endocrine Society went on to further define vitamin D insufficiency as a level between 21 and 29 ng/mL (2). 1. IOM ([place] [employer]). 2010. Dietary reference intakes for calcium and D. [place]: The National Academies Press. 2. Preet MF, Munira DAVEY, Angelika PATRICIO, et al. Evaluation, treatment, and prevention of vitamin D deficiency: an Endocrine Society clinical practice guideline. JCEM. 2010; 96(7):1911-30. *Hemogloblin A1c w/ eAG Est (341715) (Not yet reviewed by provider) Interpretation: Performing Lab:[email or web address] [address] [place], [place] [id number], Phone - [phone], Director - Judie Notes/Report: Hemoglobin A1c 5.4 4.8-5.6 % . Prediabetes: 5.7 - 6.4 Diabetes: >6.4 Glycemic control for adults with diabetes: <7.0 Estim. Avg Glu (eAG) 108 *Vitamin B12 (402094) (Not y et reviewed by provider) Interpretation: Performing Lab:[facility], [facility] [address] [place], [place] [id number], Phone - [phone], Director - Jduie Notes/Report: Vitamin B12 278 722-5356 pg/mL *Lipid Panel (898802) (Not y et reviewed by provider) Interpretation: Performing Lab:[facility] [place], [facility] [address] [place], [place] [id number], Phone - [phone], Director - Judie Notes/Report: Cholesterol, Total 178 100-199 mg/dL Triglycerides 52 0-149 mg/dL HDL Cholesterol 47 >39 mg/dL VLDL Cholesterol Boby 10 5-40 mg/dL LDL Chol Calc ([facility]) 121 0-99 mg/dL *Urinalysis, Routine Urinaly sis, by dip stick or tablet reagent Reviewed date:10/20/2024 09:51:16 AM Interpretation: Performing Lab: Notes/Report: Leukocytes Neg Urine-Color Yellow Appearance Cloudy Specific [place] 1.025 pH 6.0 Glucose Neg Protein 0.14 Occult Blood Neg Bilirubin 1+ Urobilinogen,Semi-Qn 3.5 Nitrite, Urine Neg Ketones Neg *Vitamin D, 25-Hydroxy (0819 50) (Not yet reviewed by provider) Interpretation: Performing Lab:[facility] [address] [id number], Phone - [phone], Director - MDYeison Notes/Report: Vitamin D, 25-Hydroxy 36.0 30.0-100.0 ng/mL Vitamin D deficiency has been defined by the [place] [employer] and an Endocrine Society practice guideline as a level of serum 25-OH vitamin D less than 20 ng/mL (1,2). The Endocrine Society went on to further define vitamin D insufficiency as a level between 21 and 29 ng/mL (2). 1. IOM ([place] [employer]). 2010. Dietary reference intakes for calcium and D. [place]: The National Academies Press. 2. Preet MF, Munira NC, Angelika PATRICIO, et al. Evaluation, treatment, and prevention of vitamin D deficiency: an Endocrine Society clinical practice guideline. JCEM. 2010; 96(7):1911-30. *Vitamin B12 (694104) (Not y et reviewed by provider) Interpretation: Performing [facility], [address] [place] [id number], Phone - [phone], Director - Judie Notes/Report: Vitamin B12 761 885-5038 pg/mL *PSA, Serum (704372) Reviewed date:09/28/2024 03:26:16 PM Interpretation: Performing Lab: Notes/Report: Prostate Specific Ag 1.0 0.0-4.0 ng/mL [facility] (941783) Reviewed date:09/28/2024 03:26:16 PM Interpretation: Performing Lab: [...] Boby 13 5-40 mg/dL LDL Chol Calc ([facility]) 124 0-99 mg/dL T. Chol/HDL [...] Status Risk Notes Problem Vitamin B deficiency (58126512) Deficiency of other specified B group vitamins (E53.8) Active confirmed Problem Obesity (653198958) Obesity, unspecified (E66.9) Active confirmed Problem History of bariatric surgical procedure (850878238) Bariatric surgery status (Z98.84) Active confirmed Problem 901748202 Dyslipidemia (E78.5) Active confirmed Problem Asthma (137579860) Asthma (J45.909) Active confirmed Problem 52909717 Vitamin D deficiency (E55.9) Active confirmed Problem 205581901 Morbid obesity (E66.01) Active confirmed Problem 53401754 Migraine without status migrainosus, not intractable, unspecified migraine type (G43.909) Active confirmed Problem 86141174 Hypogonadism mal e (E29.1) Active confirmed Problem 076093272 Mild persistent asthma without complication (J45.30) Active confirmed Problem 742083125 Other elevated white blood cell (WBC) count (D72.828) Active confirmed Problem 47680435 Lymphocytosis (D72.820) Active confirmed Problem 976350481 Obesity (BMI 30-39.9) (E66.9) Active confirmed Problem 055270189 House dust mite allergy (Z91.09) Active confirmed Problem 415675262 Type 2 diabetes mellitus without complication, without long-term current use of insulin (E11.9) Active confirmed Problem 74608531 Right bundle branch block (RBBB) (I45.10) Active confirmed Problem 308973996 Mild intermitten t asthma, unspecified whether complicated (J45.20) Active confirmed Problem 310534045 Seasonal allergi c rhinitis, unspecified trigger (J30.2) Active confirmed Problem Hepatic fibrosis (disorder) (81263465) Hepatic fibrosis, unspecified (K74.00) Active confirmed Vital Signs Heart Rate 63 /min 12/09/2024 Temperature 99.0 degrees Fahrenheit 12/09/2024 Respiratory Rate 16 /min 12/09/2024 Height-cm 170.18 cm 12/09/2024 Oximetry 99 % 12/09/2024 Blood pressure diastolic 86 mm Hg 12/09/2024 Weight-kg 85.46 kg 12/09/2024 Height 67 in 12/09/2024 Blood pressure systolic 120 mm Hg 12/09/2024 Weight 188.4 lbs 12/09/2024 BMI 29.5 kg/m2 12/09/2024 Encounters Encounter Location Date Provider Diagnosis [place] [address] [address] 03/18/2024 Ronald Coppola B12 deficiency E53.8 ; Dyslipidemia E78.5 ; Vitamin D deficiency E55.9 and Type 2 diabetes mellitus without complication, without long-term current use of insulin E11.9 [place] [address] [address] 03/25/2024 Ronald Coppola Dyslipidemia E78.5 ; Vitamin D deficiency E55.9 ; Type 2 diabetes mellitus without complication, without long-term current use of insulin E11.9 ; B12 deficiency E53.8 and Screening for prostate cancer Z12.5 [place] [address] [address] 04/14/2024 Russell Garduno Migraine without sta tus migrainosus, not intractable, unspecified migraine type G43.909 [place] [address] [address] 06/07/2024 Russell Garduno Type 2 diabetes madan itus without complication, without long-term current use of insulin E11.9 ; Vitamin D deficiency E55.9 ; Dyslipidemia E78.5 ; B12 deficiency E53.8 and Screening for prostate cancer Z12.5 [place] [address] [address] 06/16/2024 Ronald Coppola Dyslipidemia E78.5 ; Vitamin D deficiency E55.9 ; Type 2 diabetes mellitus without complication, without long-term current use of insulin E11.9 ; B12 deficiency E53.8 and Screening for prostate cancer Z12.5 [place] [address] [address] 08/17/2024 Ronald Coppola Painful urination R3 0.9 [place] [address] [place] [address] 09/24/2024 Russell Laureen B12 deficiency E53.8 ; Vitamin D deficiency E55.9 and Encounter for screening Z13.9 [place] [address] [address] 09/30/2024 Ronald Coppola Dyslipidemia E78.5 ; Vitamin D deficiency E55.9 ; Type 2 diabetes mellitus without complication, without long-term current use of insulin E11.9 ; B12 deficiency E53.8 and Screening for prostate cancer Z12.5 [place] [address] [address] 11/16/2024 Ronald Coppola Sports physical Z02. 5 and Right bundle branch block (RBBB) I45.10 [place] [address] [address] 12/09/2024 Ronald Coppola Status post panniculectomy Z98.890 and Administrative encounter Z02.[address] [address] 03/02/2024 Ronald Coppola Medication refill Z7 6.[address] [address] 12/07/2024 Ronald Coppola Assessments Encounter Date Diagnosis (ICD Code) Assessment [...] RBBB. States that he was referred to Out[facility] and reprots of having multitudes of tests (including stress test) and all were benign. 12/09/2024 Administrative encounter (ICD-10 - Z02.9) Letter written 12/09/2024 Status post panniculectomy (ICD-10 - Z98.890) 03/02/2024 Medication refill (ICD-10 - Z76.0) 03/18/2024 [...] Test Name Order Date Vitamin A, Serum (328042) 07/08/2023 *Insulin (930345) 07/08/2023 *CBC With Differential/Platelet (575475) 07/08/2023 *Iron and TIBC (952514) 07/08/2023 *Vitamin D, 25-Hydroxy (048005) 07/08/20 23 Hemoglobin A1c (745967) 07/08/2023 *C-Reactive Protein, Cardiac (074459) *Lipid Panel (712267) 07/08/2023 Basic Metabolic Panel (8) (039340) 07/08 Vitamin B12 and Folate (537352) 07/08/20 23 *Ferritin, Serum (499868) 07/08/2023 TSH reflex to T4F 07/08/2023 *PSA, Serum (909709) 06/07/2024 *Vitamin D, 25-Hydroxy (179989) 06/07/20 24 *Hemogloblin A1c w/ eAG Est (461462) *Vitamin B12 (788697) 06/07/2024 *Lipid Panel (361336) 06/07/2024 *Vitamin D, 25-Hydroxy (824016) 09/24/19 25 *Vitamin B12 (668506) 09/24/2024 Next Appt Details Provider Name:Ronald Coppola, 01/28/2025 08:00:00 AM, [address], [place], [address], Provider Name:Ronald Coppola, 02/03/2025 10:00:00 AM, [address], [place], [address], Insurance Providers Payer Name Payer Address Payer Phone Subscriber Number Group Number Insured Name Patient Relationship to Insured Coverage Start Date Coverage End Date [facility] [address] [place] [address] [id number] Preston Nuñez Self - patient is the insured 4 [facility] [address] [place] [address] [id number] Preston Nuñez Self - patient is the insured 8 8 [facility] [address] [place] [address] [id number] Preston Nuñez Self - patient is the insured 7 4 Medications Administered Medication Instructions Date of Administration Dosage Notes Ketorolac Tromethamine 04/14/2024 2 mL Medical (General) History Medical History History ICD Code Asthma Seasonal allergies Obesity Diabetes Migraine headaches Surgical History Surgery Date(Month/Year) Colonoscopy 2021 Gastric bypass surgery (December 2022).
--- OUTSIDE RECORDS SUMMARY | 2024-12-13 15:49 | XMS_ITS ---
Author Organization [facility] Address [address] [place] [address] Care Team Providers Care Adjunct Mathematics Instructor Name Role Phone Abdon Ronald Primary Care Provider REASON FOR VISIT letter Encounters Encounter Location Date Provider Diagnosis [facility] [address] [place] [address] 12/07/2024 Ronald Coppola Plan Of Treatment Next Appt Details Provider Name:Ronald Coppola, 01/28/2025 08:00:00 AM, [address], [place], [address], Provider Name:Ronald Coppola, 02/03/2025 10:00:00 AM, [address], [place], [address], Progress Notes * Preston STARR MDOB: (49 yo M)Acc No.[id number]:12/07/2024 Patient:?Henrry STARR :1975???Age:49 Y???Sex:Male Address:[address], , [place] [address] * true * Date:? Generated for Printi ng/Faxing/eTransmitting on:?12/13/2024 02:49 PM CDT
--- OUTSIDE RECORDS SUMMARY | 2024-12-13 15:49 | XMS_ITS ---
Author Organization [facility] Address [address] [place] [address] Care Team Providers Care Machine Zipper Trimmer Name Role Phone Ronald Coppola Primary Care Provider [phone] Allergies No Known Allergies REASON FOR [...] 11/16/2024 Encounters Encounter Location Date Provider Diagnosis [facility] [place] [address] [facility] [address] [place] [address] 11/16/2024 Ronald Coppola Sports physical Z02. 5 [...] RBBB. States that he was referred to [facility] and reprots of having multitudes of tests (including stress test) and all were benign. Plan Of Treatment Next Appt Details Follow Up: prn, Reason: Provider Name:Ronald Coppola, 01/28/2025 08:00:00 AM, [address], [place] [address], [place], [address], Provider Name:Ronald Coppola, 02/03/2025 10:00:00 AM, [address], [facility] [address], [place], [address], Progress Notes * Preston STARR MDOB: (49 yo M)Acc No.[id number]:11/16/2024 Progress Note - Follow-Up Patient:?Vandana STARRfaby Hernández Provider:?Ronald Coppola MD :1975???Age:49 Y???Sex:Male Howard e:11/16/2024 External Visit ID:[id number] Address:[address] [place] [address], 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 States that he was referred to [facility] and reprots of having multitudes of tests (including stress test) and all were benign.?? * Procedure Codes:? * Follow Up:?prn * * Sign off status: Completed true * Provider:?Ronald Coppola MD Date:? Generated for Rosai margaret/Xenia/eTransmitting on:?12/13/2024 02:49 PM CDT History and Physical Notes * [...]
--- OUTSIDE RECORDS SUMMARY | 2024-12-13 15:50 | XMS_ITS ---
Author Organization [facility] Address [address] [address] [place] [address] Care Team Providers Care Dumpster Operator Name Role Phone Abdon Ronald Primary Care Provider Allergies No Known Allergies REASON FOR VISIT rtw letter for surgery Vital Signs Temperature 99.0 degrees Fahrenheit 12/10/19 25 Blood pressure systolic 120 mm Hg 12/10/19 25 Blood pressure diastolic 86 mm Hg 025 Heart Rate 63 /min 12/09/2024 Respiratory Rate 16 /min 12/09/2024 Height 67 in 12/09/2024 Weight 188.4 lbs 12/09/2024 BMI 29.5 kg/m2 12/09/2024 Oximetry 99 % 12/09/2024 Height-cm 170.18 cm 12/09/2024 Weight-kg 85.46 kg 12/09/2024 Encounters Encounter Location Date Provider Diagnosis [facility] [address] [facility] [address] [place] [address] 12/09/2024 Ronald Coppola Status post panniculectomy Z98.890 and Administrative encounter Z02.9 Assessments Encounter Date Diagnosis (ICD Code) Assessment Notes Treatment Notes Treatment Clinical Notes Section Notes 12/09/2024 Status post panniculectomy (ICD-10 - Z98.890) 12/09/2024 Administrative encounter (ICD-10 - Z02.9) Letter written Plan Of Treatment Next Appt Details Follow Up: prn, Reason: Provider Name:Roanld Coppola, 01/28/2025 08:00:00 AM, [address], [place], [address], Provider Name:Ronald Nietoel, 02/03/2025 10:00:00 AM, [address], [place], [address], Progress Notes * Preston STARR MDOB: (49 yo M)Acc No.[id number]:12/09/2024 Progress Note - Follow-Up Patient:?Vandana STARRfaby Hernández Provider:?Ronald Coppola MD :1975???Age:49 Y???Sex:Male Howard e:12/09/2024 External Visit ID:[id number] Address:[address] [place] [address], [facility] 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 49 yo M is here wih request for a letter that I agrees with a his surgeon?Dr. Domínguez for his time off for and post-surgery (Panniculectomy). As per Dr. Domínguez, patient will need to be off from work from 12/09/2024 to 02/06/2025. * ROS:?General/Constitutional:?See HPI?X.? * Medical History:? * Surgical History:?Gastric by pass surgery (December 2022). Colonoscopy 2021 * Hospitalization/Major Diagno stic Procedure:?No Hospitalization History. * Family History:?Paternal Gra nd Father: HTN , DM.?Paternal Grand Mother: MS.?Maternal aunt: BREAST CA.? * Social History:?Tobacco Use:?Tobacco Use/Smoking Status: *Nonsmoker?.?Other Tobacco Use: Patient does not use tobacco products. ???Drugs/Alcohol:?Alcohol: Patient does not use alcohol products. ?History of Drug Use: Patient does not use recreational drugs. ???Miscellaneous:?Exercise: 1 - 2.5 per week. ?Sexually active: Active? Yes. * Medications:?None * Allergies:?N.K.A.no[Allergie s Verified] Objective: * Vitals:?Temp:99.0F, Ht: 67 i n, Wt:188.4lbs, HR:63/min, Oxygen sat %:99%, RR:16/min, BP:120/86mm Hg, BMI:29.5Index, Wt Change: -1 lbs, Ht-cm: 170.18 cm, Wt-k.46 kg. * Examination: ???General Examination: ?General Appearance?in no acute distress , male , calm and relaxed.?HEAD:?normocephalic , atraumatic.?NEUROLOGIC:?alert and oriented , cognitive exam grossly normal , nonfocal , gait normal , sensory exam intact , no tremor.?PSYCH:?alert, oriented , good eye contact , mood/affect full range , speech clear.?Mental Status?Alert and oreinted x 3.? * Physical Examination:? Assessment: * Assessment: 1.?Status post panniculectom y - Z98.890 (Primary)???2.?Administrative encounter - Z02.9??? Plan: * Treatment: * Procedure Codes:? * Follow Up:?prn * * Sign off status: Completed true * Provider:?Ronald Coppola MD Date:? Generated for Nadine robles/Xenia/Shanna on:?12/13/2024 02:49 PM CDT History and Physical Notes * Examination Category Sub-Category Detail Notes Category Not es General Examination General Appearance in no acu te distress , male , calm and relaxed HEAD: normocephalic , atra umatic NEUROLOGIC: alert and oriented , cognitive exam grossly normal , nonfocal , gait normal , sensory exam intact , no tremor PSYCH: alert, oriented , go od eye contact , mood/affect full range , speech clear Mental Status Alert and oreinted x 3
== END ==
LOC: HO.SL 14:16
PROVIDERS: Visit Provider Psychiatry & Neurology Neurology
DX: G47.33 Obstructive sleep apnea (adult) (pediatric) (principal)
CPT/HCPCS: 95806

== ENCOUNTER → 2024-12-13 14:29 | Outpatient (BNV) | payer OTHER, BC, SELFPAY | PROVIDERS: Visit Provider Psychiatry & Neurology Neurology | DX: G47.33 Obstructive sleep apnea (adult) (pediatric) (principal) | CPT/HCPCS: 95806 ==

== ENCOUNTER 2024-12-14 06:03 | Day surgery (SDC) | payer OTHER, BC, SELFPAY ==
--- OUTSIDE RECORDS SUMMARY | 2024-11-17 15:58 | XMS_ITS | Patient Health Record ---
Author Organization [facility] Address [address] [place] [address] Care Team Providers Care Burial Vault Maker Name Role Phone CoppolaAdaliil Primary Care Provider [phone] Russell Garduno Unavailable [phone] Allergies No Known Allergies Results Component Value Reference Range Notes *Vitamin D, 25-Hydroxy (0819 50) Reviewed date:05/10/2024 02:15:32 PM Interpretation: Performing Lab:[facility] [place], [facility] [place], [place] [id number], Phone - [phone], Director - Judie Notes/Report: Vitamin D, 25-Hydroxy 36.0 30.0-100.0 ng/mL Vitamin D deficiency has been defined by the [place] of Medicine and an Endocrine Society practice guideline as a level of serum 25-OH vitamin D less than 20 ng/mL (1,2). The Endocrine Society went on to further define vitamin D insufficiency as a level between 21 and 29 ng/mL (2). 1. IOM ([place] of Medicine). 2010. Dietary reference intakes for calcium and D. [place]: The National Academies Press. 2. Preet MF, Munira NC, Angelika PATRICIO, et al. Evaluation, treatment, and prevention of vitamin D deficiency: an Endocrine Society clinical practice guideline. JCEM. 2010; 96(7):1911-30. *Hgb A1c with eAG Estimation (107239) Reviewed date:05/10/2024 02:15:32 PM Interpretation: Performing Lab:[facility] [place] [id number], Phone - [phone], Director - [facility] Notes/Report: Hemoglobin A1c 5.5 4.8-5.6 % . Prediabetes: 5.7 - 6.4 Diabetes: >6.4 Glycemic control for adults with diabetes: <7.0 Estim. Avg Glu (eAG) 111 *Vitamin B12 (059225) Reviewed date:05/10/2024 02:15:32 PM Interpretation: Performing Lab:[address] [id number], Phone - [phone], [facility]: Vitamin B12 185 170-0513 pg/mL *Lipid Panel (587649) Reviewed date:05/10/2024 02:15:32 PM Interpretation: Performing Lab:[address] [id number], Phone - [phone], [facility]Report: Cholesterol, Total 148 100-199 mg/dL Triglycerides 62 0-149 mg/dL HDL Cholesterol 46 >39 mg/dL VLDL Cholesterol Boby 13 5-40 mg/dL LDL Chol Calc (NIH) 89 0-99 mg/dL *Prostate-Specific Ag, Serum (370380) (Not yet reviewed by provider) Interpretation: Performing Lab:[address] [id number], Phone - [phone], Director - [facility] Notes/Report: Prostate Specific Ag 0.9 0.0-4.0 ng/mL Zahida ECLIA methodology. . According to the [place] [employer], Serum PSA should decrease and [...] the presence or absence of malignant disease. *Vitamin D, 25-Hydroxy (0819 50) (Not yet reviewed by provider) Interpretation: Performing Lab:[address] [id number], Phone - [phone], Director - Judie Notes/Report: Vitamin D, 25-Hydroxy 33.0 30.0-100.0 ng/mL Vitamin D deficiency has been defined by the [place] of Medicine and an Endocrine Society practice guideline as a level of serum 25-OH vitamin D less than 20 ng/mL (1,2). The Endocrine Society went on to further define vitamin D insufficiency as a level between 21 and 29 ng/mL (2). 1. IOM ([place] of [employer]). 2010. Dietary reference intakes for calcium and D. [place]: The National Academies Press. 2. Preet MF, Munira DAVEY, Angelika PATRICIO, et al. Evaluation, treatment, and prevention of vitamin D deficiency: an Endocrine Society clinical practice guideline. JCEM. 2010; 96(7):1911-30. *Hgb A1c with eAG Estimation (649836) (Not yet reviewed by provider) Interpretation: Performing Lab:[facility] [address] [id number], Phone - [phone], Director - Judie Notes/Report: Hemoglobin A1c 5.4 4.8-5.6 % . Prediabetes: 5.7 - 6.4 Diabetes: >6.4 Glycemic control for adults with diabetes: <7.0 Estim. Avg Glu (eAG) 108 *Vitamin B12 (528937) (Not y et reviewed by provider) Interpretation: Performing Lab:[facility] [place] [address] [place], [place] [id number], Phone - [phone], Director - Judie Notes/Report: Vitamin B12 778 248-3109 pg/mL *Lipid Panel (234994) (Not y et reviewed by provider) Interpretation: Performing Lab:[facility] [address] [place], [place] [id number], Phone - [phone], Director - Judie Notes/Report: Cholesterol, Total 178 100-199 mg/dL Triglycerides 52 0-149 mg/dL HDL Cholesterol 47 >39 mg/dL VLDL Cholesterol Boby 10 5-40 mg/dL LDL Chol Calc ([facility]) 121 0-99 mg/dL *Urinalysis, Routine Urinaly sis, by dip stick or tablet reagent Reviewed date:10/20/2024 09:51:16 AM Interpretation: Performing Lab: Notes/Report: Leukocytes Neg Urine-Color Yellow Appearance Cloudy Specific Addison 1.025 pH 6.0 Glucose Neg Protein 0.14 Occult Blood Neg Bilirubin 1+ Urobilinogen,Semi-Qn 3.5 Nitrite, Urine Neg Ketones Neg *Vitamin D, 25-Hydroxy (0819 50) (Not yet reviewed by provider) Interpretation: Performing Lab:[facility] [id number], Phone - [phone], Director - Judie Notes/Report: Vitamin D, 25-Hydroxy 36.0 30.0-100.0 ng/mL Vitamin D deficiency has been defined by the [place] of [employer] and an Endocrine Society practice guideline as a level of serum 25-OH vitamin D less than 20 ng/mL (1,2). The Endocrine Society went on to further define vitamin D insufficiency as a level between 21 and 29 ng/mL (2). 1. IOM ([place] of [employer]). 2010. Dietary reference intakes for calcium and D. [place]: The National Academies Press. 2. Preet MF, Munira NC, Angelika PATRICIO, et al. Evaluation, treatment, and prevention of vitamin D deficiency: an Endocrine Society clinical practice guideline. JCEM. 2010; 96(7):1911-30. *Vitamin B12 (487084) (Not y et reviewed by provider) Interpretation: Performing Lab:[facility] [place], [address] [place] [id number], Phone - [phone], Director - Judie Notes/Report: Vitamin B12 743 190-6510 pg/mL *Prostate-Specific Ag, Serum (526528) Reviewed date:09/28/2024 03:26:16 PM Interpretation: Performing Lab: Notes/Report: Prostate Specific Ag 1.0 0.0-4.0 ng/mL [facility] (623914) Reviewed date:09/28/2024 03:26:16 PM Interpretation: Performing Lab: [...] Boby 13 5-40 mg/dL LDL Chol Calc ([facility]) 124 0-99 mg/dL T. Chol/HDL Ratio [...] Status Risk Notes Problem Vitamin B deficiency (51069781) Deficiency of other specified B group vitamins (E53.8) Active confirmed Problem Obesity (261719729) Obesity, unspecified (E66.9) Active confirmed Problem History of bariatric surgical procedure (365970414) Bariatric surgery status (Z98.84) Active confirmed Problem 380307442 Dyslipidemia (E78.5) Active confirmed Problem Asthma (804181426) Asthma (J45.909) Active confirmed Problem 69588469 Vitamin D deficiency (E55.9) Active confirmed Problem 914967049 Morbid obesity (E66.01) Active confirmed Problem 66034727 Migraine without status migrainosus, not intractable, unspecified migraine type (G43.909) Active confirmed Problem 43586544 Hypogonadism mal e (E29.1) Active confirmed Problem 829203469 Mild persistent asthma without complication (J45.30) Active confirmed Problem 481295631 Other elevated white blood cell (WBC) count (D72.828) Active confirmed Problem 53017981 Lymphocytosis (D72.820) Active confirmed Problem 458910135 Obesity (BMI 30-39.9) (E66.9) Active confirmed Problem 059659284 House dust mite allergy (Z91.09) Active confirmed Problem 406746967 Type 2 diabetes mellitus without complication, without long-term current use of insulin (E11.9) Active confirmed Problem 81312557 Right bundle branch block (RBBB) (I45.10) Active confirmed Problem 167168503 Mild intermitten t asthma, unspecified whether complicated (J45.20) Active confirmed Problem 850536308 Seasonal allergi c rhinitis, unspecified trigger (J30.2) Active confirmed Problem Hepatic fibrosis (disorder) (16262291) Hepatic fibrosis, unspecified (K74.00) Active confirmed Vital Signs Heart Rate 61 /min 11/16/2024 Temperature 98.6 degrees Fahrenheit 11/16/2024 Respiratory Rate 17 /min 11/16/2024 Height-cm 170.18 cm 11/16/2024 Oximetry 98 % 11/16/2024 Blood pressure diastolic 68 mm Hg 11/16/2024 Weight-kg 85.91 kg 11/16/2024 Height 67 in 11/16/2024 Blood pressure systolic 110 mm Hg 11/16/2024 Weight 189.4 lbs 11/16/2024 BMI 29.66 kg/m2 11/16/2024 Encounters Encounter Location Date Provider Diagnosis [place] [address] [place] [address] 03/18/2024 Ronald Coppola B12 deficiency E53.8 ; Dyslipidemia E78.5 ; Vitamin D deficiency E55.9 and Type 2 diabetes mellitus without complication, without long-term current use of insulin E11.9 [place] [address] [place] [address] 03/25/2024 Ronald Coppola Dyslipidemia E78.5 ; Vitamin D deficiency E55.9 ; Type 2 diabetes mellitus without complication, without long-term current use of insulin E11.9 ; B12 deficiency E53.8 and Screening for prostate cancer Z12.5 [place] [address] [place] [address] 04/14/2024 Russell Laureen Migraine without status migrainosus, not intractable, unspecified migraine type G43.909 [place] [address] [address] 06/07/2024 Russell Laureen Type 2 diabetes mellitus without complication, without long-term current use of insulin E11.9 ; Vitamin D deficiency E55.9 ; Dyslipidemia E78.5 ; B12 deficiency E53.8 and Screening for prostate cancer Z12.5 [place] [address] [address] 06/16/2024 Ronald Coppola Dyslipidemia E78.5 ; Vitamin D deficiency E55.9 ; Type 2 diabetes mellitus without complication, without long-term current use of insulin E11.9 ; B12 deficiency E53.8 and Screening for prostate cancer Z12.5 [place] [address] [address] 08/17/2024 Ronald Coppola Painful urination R30.9 [place] [address] [address] 09/24/2024 Russell Laureen B12 deficiency E53.8 ; Vitamin D deficiency E55.9 and Encounter for screening Z13.9 [place] [address] [address] 09/30/2024 Ronald Coppola Dyslipidemia E78.5 ; Vitamin D deficiency E55.9 ; Type 2 diabetes mellitus without complication, without long-term current use of insulin E11.9 ; B12 deficiency E53.8 and Screening for prostate cancer Z12.5 [place] [address] [address] 11/16/2024 Ronald Coppola Sports physical Z02. 5 and Right bundle branch block (RBBB) I45.10 [place] [address] [address] 03/02/2024 Ronald Coppola Medication refill Z76.0 Assessments Encounter Date Diagnosis (ICD Code) Assessment Notes Treatment Notes Treatment Clinical Notes Section Notes 03/18/2024 Dyslipidemia (ICD-10 - E78.5) 03/18/2024 B12 [...] Encouraged to start healthy lifestyle. Recheck Lipids. 11/16/2024 Sports physical (ICD-10 - Z02.5) Pt. cleared to participate in physical fitness test. 11/16/2024 Right bundle branch block (RBBB) (ICD-10 - I45.10) Pt. reports of having a hx of RBBB. States that he was referred to [facility] and reprots of having multitudes of tests (including stress test) and all were benign. 03/02/2024 Medication refill (ICD-10 - Z76.0) 03/18/2024 Vitamin D deficiency (ICD-10 - E55.9) [...] on taking Vit D daily with food. 03/18/2024 Type 2 diabetes mellitus without complication, [...] likely due to Gastric bypass. Continue monitoring. 03/25/2024 B12 deficiency (ICD-10 - E53.8) B12 is close to goal. Continue current OTC dose. 06/07/2024 Screening for prostate cancer (ICD-10 - Z12.5) 06/16/2024 B12 deficiency (ICD-10 - E53.8) Pt. counseled on taking Vit B12 as recommended. 09/30/2024 B12 deficiency (ICD-10 - E53.8) Pt. counseled on taking Vit B12 daily. 03/25/2024 Screening for prostate cancer (ICD-10 - Z12.5) 06/16/2024 Screening for prostate cancer (ICD-10 - Z12.5) PSA WNL. 09/30/2024 Screening for prostate cancer (ICD-10 - Z12.5) PSA WNL. Plan Of Treatment Pending Test Test Name Order Date Vitamin A, Serum (106124) 07/08/2023 *Insulin (615443) 07/08/2023 *CBC With Differential/Platelet (606672) 07/08/2023 *Iron and TIBC (342380) 07/08/2023 *Vitamin D, 25-Hydroxy (483874) 07/08/20 23 Hemoglobin A1c (426715) 07/08/2023 *C-Reactive Protein, Cardiac (447986) *Lipid Panel (901125) 07/08/2023 Basic Metabolic Panel (8) (882432) 07/08 Vitamin B12 and Folate (905270) 07/08/20 23 *Ferritin, Serum (368638) 07/08/2023 TSH reflex to T4F 07/08/2023 *Prostate-Specific Ag, Serum (962575) *Vitamin D, 25-Hydroxy (041990) 06/07/20 24 *Hgb A1c with eAG Estimation (510854) *Vitamin B12 (835660) 06/07/2024 *Lipid Panel (566380) 06/07/2024 *Vitamin D, 25-Hydroxy (909120) 09/24/19 25 *Vitamin B12 (432294) 09/24/2024 Next Appt Details Provider Name:Ronald Coppola, 01/28/2025 08:00:00 AM, [address], [place], [address], Provider Name:Ronald Coppola, 02/03/2025 10:00:00 AM, [address], [place], [address], Insurance Providers Payer Name Payer Address Payer Phone Subscriber Number Group Number Insured Name Patient Relationship to Insured Coverage Start Date Coverage End Date [facility] [address] [place] [phone] [id number] Preston Nuñez Self - patient is the insured 4 [facility] [address] [place] [address] [id number] Preston Nuñez Self - patient is the insured 8 8 [facility] [address] [place] [address] [id number] Preston Nuñez Self - patient is the insured 7 4 Medications Administered Medication Instructions Date of Administration Dosage Notes Ketorolac Tromethamine 04/14/2024 2 mL Medical (General) History Medical History History ICD Code Asthma Seasonal allergies Obesity Diabetes Migraine headaches Surgical History Surgery Date(Month/Year) Colonoscopy 2021 Gastric bypass surgery (December 2022).
--- OUTSIDE RECORDS SUMMARY | 2024-11-17 15:59 | XMS_ITS ---
Author Organization [facility] Address [address] [facility] [address] [place] [address] Care Team Providers Care Commercial Account Executive Name Role Phone Ronald Coppola Primary Care [...] 09/30/2024 Encounters Encounter Location Date Provider Diagnosis [place] [id number] [facility] [address] [place] [address] 09/30/2024 Ronaldelvin Coppola Dyslipidemia E78.5 ; Vitamin [...] Treatment Future Test Test Name Order Date *Vitamin D, 25-Hydroxy (942770) 01/29/20 25 *Hgb A1c with eAG Estimation (475346) *Vitamin B12 (252676) 01/28/2025 *Lipid Panel (247180) 01/28/2025 Next Appt Details Follow Up: 4 Months, Reason: Provider Name:Ronald Coppola, 01/28/2025 08:00:00 AM, [address] [place] [address], [place], [address], Provider Name:Ronald Coppola, 02/03/2025 10:00:00 AM, [address], [place], [address], Progress Notes * Preston STARR MDOB: (49 yo M)Acc No.[id number]:09/30/2024 Progress Note - Follow-Up Patient:?Henrry STARR Provider:?Ronald Coppola MD :1975???Age:49 Y???Sex:Male Howard e:09/30/2024 External Visit ID:[id number] Address:[facility] [address] Check Out:09:36 AM WEB DEVELOPER Subjective: * Chief Complaints: * ???F/u on [...] nd Father: HTN , DM.?Paternal Grand Mother: [place].?Maternal aunt: BREAST [place].? * Social History:?Tobacco Use:?Tobacco [...] Treatment: 2.?Vitamin D deficiency?LAB: Vitamin D, 25-Hydroxy (048220) (Ordered for 01/28/2025) Clinical Notes: Pt. counseled on taking Vit D daily with food.?? 3.?Type 2 diabetes mellitus without complication, without long-term current use of insulin?LAB: Hgb A1c with eAG Estimation (489869) (Ordered for 01/28/2025) Clinical Notes: HBA1c is at 5.5 HBA1c is no longer in the Diabetes range most likely due to Gastric bypass. Continue monitoring.?? 4.?B12 deficiency?LAB: Vitamin B12 (737202) (Ordered for 01/28/2025) Clinical Notes: Pt. counseled on taking Vit B12 daily.?? 5.?Screening for prostate ca ncer? Clinical Notes: PSA WNL.?? * Procedure Codes:? * Follow Up:?4 Months * * DEVELOPER Sign off status: Completed true * Provider:?Ronald Coppola MD Date:? Generated for Nadine robles/Xenia/eTransmitting on:?11/17/2024 02:58 PM CDT History and Physical Notes * Examination Category [...]
--- OUTSIDE RECORDS SUMMARY | 2024-11-17 15:59 | XMS_ITS ---
Author Organization [facility] Address [address] [place] [address] Care Team Providers Care Manufacturing Project Engineer Name Role Phone Ronald Coppola Primary Care Provider [phone] Russell Garduno Unavailable [phone] Results Component Value Reference Range Notes *Vitamin D, 25-Hydroxy (0819 50) (Not yet reviewed by provider) Interpretation: Performing Lab:[facility] [place], [facility] [place], [place] [id number], Phone - [phone], Director - Judie Notes/Report: Vitamin D, 25-Hydroxy 36.0 30.0-100.0 ng/mL Vitamin D deficiency has been defined by the [place] of Medicine and an Endocrine Society practice guideline as a level of serum 25-OH vitamin D less than 20 ng/mL (1,2). The Endocrine Society went on to further define vitamin D insufficiency as a level between 21 and 29 ng/mL (2). 1. IOM ([place] of Medicine). 2010. Dietary reference intakes for calcium and D. [place]: The National Academies Press. 2. Preet MF, Munira NC, Carlene-Dayo PATRICIO, et al. Evaluation, treatment, and prevention of vitamin D deficiency: an Endocrine Society clinical practice guideline. JCEM. 2010; 96(7):1911-30. *Vitamin B12 (513176) (Not y et reviewed by provider) Interpretation: Performing Lab:[facility] [place], [facility] [place], [place] [id number], Phone - [phone], Director - Judie Notes/Report: Vitamin B12 161 542-0115 pg/mL REASON FOR VISIT PHA draw + [...] 09/24/2024 Encounters Encounter Location Date Provider Diagnosis [facility] [address] [facility] [address] [place] [address] 09/24/2024 Russell Garduno B12 deficiency E53.8 ; Vitamin D deficiency E55.9 and Encounter for screening Z13.9 Assessments Encounter Date Diagnosis (ICD Code) Assessment Notes Treatment Notes Treatment Clinical Notes Section Notes 09/24/2024 B12 deficiency (ICD-10 - E53.8) 09/24/2024 Vitamin D deficiency (ICD-10 - E55.9) 09/24/2024 Encounter for screening (ICD-10 - Z13.9) Plan Of Treatment Pending Test Test Name Order Date *Vitamin D, 25-Hydroxy (615516) 09/24/19 25 *Vitamin B12 (382379) 09/24/2024 Next Appt Details Follow Up: prn, Reason: Provider Name:Ronald Coppola, 01/28/2025 08:00:00 AM, [address], [place], [address], Provider Name:Ronald Coppola, 02/03/2025 10:00:00 AM, [address], [facility], [place], [address], Procedure Notes * Category Sub-Category Detail Notes Venipuncture Venipuncture: 21g Straight nee dle Draw Attempts #:: 1 Draw Site Site:: Right AC Disposition Disposition:: Pt tolerated well Progress Notes * Preston STARR MDOB: (49 yo M)Acc No.[id number]:09/24/2024 PHA Draw Note Patient:?SADETAZ Henrry dany Hernández Provider:?Russell Garduno, :1975???Age:49 Y???Sex:Male Howard e:09/24/2024 External Visit ID:[id number] Address:[address] [place] [address] Pcp:Ronald Coppola Check Out:08:02 AM REGISTERED DIETICIAN Subjective: * Chief Complaints: * ???PHA draw [...] Treatment: 2.?Vitamin D deficiency?LAB: Vitamin D, 25-Hydroxy (812096) * Procedures:?Venipuncture:?Draw Attempts ?#:?1 ?Draw Site ?Site:?Right AC ?Disposition ?Disposition:?Pt tolerated well ?Venipuncture:?21g Straight needle.? * Procedure Codes:?05234 VITAM IN [id number] VENIPUNCT, ROUTINE*42074 ASSAY OF VITAMIN H54492 GENERAL HEALTH PANEL * Follow Up:?prn * * STERED DIETICIAN Sign off status: Completed true * Provider:?Russell Garduno, DO Date:? 025 Generated for Nadine robles/Xenia/Sidsmitting on:?11/17/2024 02:59 PM CDT
--- OUTSIDE RECORDS SUMMARY | 2024-11-17 15:59 | XMS_ITS | Patient Health Record ---
Author Organization [facility] - [facility] Address [address] [place] [address] Care Team Providers Care Clinic Lpn Name Role Phone Fernanda Cherry Unavailable [phone] Reason For Referral No Information Plan Of Treatment No Information Insurance Providers Payer Name Payer Address Payer Phone Subscriber Number Group Number Insured Name Patient Relationship to Insured Coverage Start Date Coverage End Date [facility] [address] [place] [id number] Preston Clarke Self - patient is the insured Medical (General) History Medical History History ICD Code Asthma Surgical History Surgery Date(Month/Year)
--- OUTSIDE RECORDS SUMMARY | 2024-11-17 15:59 | XMS_ITS ---
Author Organization [facility] Address [address] [place] [address] Care Team Providers Care Skinner Pelts Name Role Phone Ronald Coppola Primary Care Provider Allergies No Known Allergies REASON FOR VISIT medical clearance Vital Signs Temperature 98.6 degrees Fahrenheit 11/17/19 25 Blood pressure systolic 110 mm Hg 11/17/19 25 Blood pressure diastolic 68 mm Hg 025 Heart Rate 61 /min 11/16/2024 Respiratory Rate 17 /min 11/16/2024 Height 67 in 11/16/2024 Weight 189.4 lbs 11/16/2024 BMI 29.66 kg/m2 11/16/2024 Oximetry 98 % 11/16/2024 Height-cm 170.18 cm 11/16/2024 Weight-kg 85.91 kg 11/16/2024 Encounters Encounter Location Date Provider Diagnosis [facility] [place] [address] [facility] [address] [place] [address] 11/16/2024 Ronald Coppola Sports physical Z02. 5 and Right bundle branch block (RBBB) I45.10 Assessments Encounter Date Diagnosis (ICD Code) Assessment Notes Treatment Notes Treatment Clinical Notes Section Notes 11/16/2024 Sports physical (ICD-10 - Z02.5) Pt. cleared to participate in physical fitness test. 11/16/2024 Right bundle branch block (RBBB) (ICD-10 - I45.10) Pt. reports of having a hx of RBBB. States that he was referred to Drum Filler and reprots of having multitudes of tests (including stress test) and all were benign. Plan Of Treatment Next Appt Details Follow Up: prn, Reason: Provider Name:Ronald Coppola, 01/28/2025 08:00:00 AM, [address], [place] [address], [place], [address], Provider Name:Ronald Coppola, 02/03/2025 10:00:00 AM, [address], [facility] [address], [place], [address], Progress Notes * Preston STARR MDOB: (49 yo M)Acc No.[id number]:11/16/2024 Progress Note - Follow-Up Patient:?Vandana STARRfaby Hernández Provider:?Ronald Coppola MD :1975???Age:49 Y???Sex:Male Howard e:11/16/2024 External Visit ID:[id number] Address:[address] [place] [address], 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 49 yo M is here for a clearance to participate in physical fitness test for work. Pt. reports of being physically active outside the work. Denies of any chest pain/SOB/palpitations/PATRICIO. Pt. denies of any FHx of heart disease. * ROS:?General/Constitutional:?See HPI?X.? * Medical History:? * Surgical History:?Gastric by pass surgery (December 2022). Colonoscopy 2021 * Hospitalization/Major Diagno stic Procedure:?No Hospitalization History. * Family History:?Paternal Gra nd Father: HTN , DM.?Paternal Grand Mother: [place].?Maternal aunt: BREAST CA.?Non-Contributory.? * Social History:?Tobacco Use:?Tobacco Use/Smoking Status: *Nonsmoker?.?Other Tobacco Use: Patient does not use tobacco products. ???Drugs/Alcohol:?Alcohol: Patient does not use alcohol products. ?History of Drug Use: Patient does not use recreational drugs. ???Miscellaneous:?Exercise: 1 - 2.5 per week. ?Sexually active: Active? Yes. * Medications:?None * Allergies:?N.K.A.no[Allergie s Verified] Objective: * Vitals:?Temp:98.6F, Ht: 67 i n, Wt:189.4lbs, HR:61/min, Oxygen sat %:98%, RR:17/min, BP:110/68mm Hg, BMI:29.66Index, Wt Change: -5.8 lbs, Ht-cm: 170.18 cm, Wt-k.91 kg. * Examination: ???General Examination: ?General Appearance?in no acute distress , male , calm and relaxed.?HEAD:?normocephalic , atraumatic.?EYES:?BOTH EYES, sclera anicteric, no conjunctival injection, extraocular movement intact, PERRL, EOMI..?EARS:?BOTH EARS, auditory canal clear, gross hearing intact, tympanic membranes intact, no effusion, no erythema.?HEART:?regular rate and rhythm , no murmurs, rubs, gallops.?LUNGS:?clear to auscultation bilaterally , no wheezes, rales, rhonchi , good air movement.?CHEST:?normal shape and expansion.?ABDOMEN:?soft, nontender, nondistended , bowel sounds present and normoactive , no organomegaly , no masses palpable.?MUSCULOSKELETAL:?UE and LE motor strength 5/5 DTR 2+ Bilat patellar reflex..?NEUROLOGIC:?alert and oriented , cognitive exam grossly normal , nonfocal , gait normal , sensory exam intact , no tremor.?PSYCH:?alert, oriented , good eye contact , mood/affect full range , speech clear.?Mental Status?Alert and oreinted x 3.? * Physical Examination:? Assessment: * Assessment: 1.?Right bundle branch block (RBBB) - I45.10???2.?Sports physical - Z02.5 (Primary)??? Plan: * Treatment: 2.?Right bundle branch block (RBBB)? Clinical Notes: Pt. reports of having a hx of RBBB. States that he was referred to Drum Filler and reprots of having multitudes of tests (including stress test) and all were benign.?? * Procedure Codes:? * Follow Up:?prn * * Sign off status: Completed true * Provider:?Ronald Coppola MD Date:? Generated for Rosai margaret/Xenia/eTransmitting on:?11/17/2024 02:59 PM CDT History and Physical Notes * Examination Category Sub-Category Detail Notes Category Not es General Examination General Appearance in no acu te distress , male , calm and relaxed HEAD: normocephalic , atra umatic EYES: BOTH EYES, sclera an icteric, no conjunctival injection, extraocular movement intact, PERRL, EOMI. EARS: BOTH EARS, auditory canal clear, gross hearing intact, tympanic membranes intact, no effusion, no erythema HEART: regular rate and rhy thm , no murmurs, rubs, gallops CHEST: normal shape and exp ansion LUNGS: clear to auscultatio n bilaterally , no wheezes, rales, rhonchi , good air movement ABDOMEN: soft, nontender, non distended , bowel sounds present and normoactive , no organomegaly , no masses palpable NEUROLOGIC: alert and oriented , cognitive exam grossly normal , nonfocal , gait normal , sensory exam intact , no tremor MUSCULOSKELETAL: UE and LE motor stre ngth 5/5 DTR 2+ Bilat patellar reflex. PSYCH: alert, oriented , go od eye contact , mood/affect full range , speech clear Mental Status Alert and oreinted x 3
[2024-12-10 07:16] LABS: MANUAL DIFF FLAG NO
[2024-12-10 07:56] LABS: Basophils Absolute Auto 0.1 X10*3/uL (0.0-0.2); Basophils Percent Auto 0.7 % (0-2); Eosinophils Absolute Auto 0.1 X10*3/uL (0.0-0.4); Hematocrit 43.1 % (42.0-52.0); Hemoglobin 14.3 g/dl (14.0-18.0); Imm Gran Abs Auto 0.02 X10*3/uL (0.00-0.03); Imm Gran Pct Auto 0.3 % (0.0-0.4); Lymphocytes Absolute Auto 3.1 X10*3/uL (1.2-4.9); Lymphocytes Percent Auto 44.2 % (20-40); Mean Corpuscular HGB Conc 33.2 g/dl (31.0-36.0); Mean Corpuscular Hemoglobin 30.2 pg (27.0-33.0); Mean Corpuscular Volume 91.1 fL (80.0-98.0); Mean Platelet Volume 10.4 fL (9.4-12.4); Monocytes Absolute Auto 0.5 X10*3/uL (0.1-1.2); Monocytes Percent Auto 6.8 % (2-11); Neutrophils Absolute Auto 3.3 x10*3/uL (2.0-8.3); Platelet Count 234 X10*3/uL (160-400); Red Blood Count 4.73 X10*6/uL (4.60-5.80); Red Cell Distribution Width 12.7 % (11.0-16.0); White Blood Count 7.1 X10*3/uL (4.8-10.8)
[2024-12-10 08:06] LABS: Estimated Average Glucose 100 mg/dL; Hemoglobin A1C 122.1163 umol/L; Hemoglobin A1c % 5.1 % (<6.0); Prothrombin Time 11.6 SEC (10.9-12.4); Total Hemoglobin (HGBA1C) 3831.1083 umol/L
[2024-12-10 08:09] LABS: Partial Thromboplastin Time 36.5 SEC (26.0-36.8)
[2024-12-10 08:43] LABS: Alanine Aminotransferase 8 U/L (0-40); Albumin Level 3.9 g/dL (3.5-5.0); Alkaline Phosphatase 56 U/L (39-117); Anion Gap 13 (12-20); Aspartate Amino Transferase 16 U/L (5-37); Bilirubin Total 1.3 mg/dL (0.0-1.0); Blood Urea Nitrogen 9 mg/dL (9-16); C Reactive Protein < 0.10 mg/dL (< or = 0.50); Calcium 9.3 mg/dL (8.4-10.2); Carbon Dioxide 29 mmol/L (22-29); Chloride 107 mmol/L (96-108); Cholesterol 154 mg/dL (<200); Estimated Glomerular Filt Rate > 60; Glucose Random 84 mg/dL (60-115); HDL Cholesterol 47 mg/dL (>40); Iron 138 mcg/dL (45-160); LDL Cholesterol Calculated 94 mg/dL (<100); Percent Iron Saturation 51 % (15-50); Sodium 145 mmol/L (135-145); Total Iron Binding Capacity 268 mcg/dL (228-428); Total Protein 6.7 g/dL (6.5-8.0); Triglycerides 66 mg/dL (<150); Unsaturated Iron Binding 130 ug/dL
[2024-12-10 08:50] LABS: Ferritin 168 ng/mL (20-250); Insulin 4 uU/mL (2-29); TSH reflex Free T4 1.56 uIU/mL (0.32-4.0); Vitamin D 25-OH Total 52.9 ng/mL (>30)
[2024-12-10 08:52] LABS: Vitamin B12 1060 pg/mL (200-900)
[2024-12-10 11:06] VITALS: BMI 28.8
--- NOTE | 2024-12-13 09:45 | HO.ANESPROP2 ---
Documented by User: Maureen Chan NP 12/13/24 09:52 HPI - Anesthesia Eval Consult details Narrative: 49yo M for Panniculectomy PMFSH Active Problems Active Problems: All Active Problems Excess skin (Acute) Overweight (BMI 25.0-29.9) (Acute) Constipation (Acute) Obesity (BMI 30-39.9) (Acute) Congenital intra-abdominal adhesions (Acute) Hepatomegaly (Acute) Liver fibrosis (Acute) Steatosis, liver (Acute) Abnormal EKG (Acute) Vitamin B12 deficiency (Acute) Vitamin D deficiency (Acute) Hypoxemia associated with sleep (Acute) Adjustment disorder, unspecified (Acute) Postgastrectomy malabsorption (Acute) S/P laparoscopic sleeve gastrectomy (Acute 12/2022) GERD (gastroesophageal reflux disease) (Acute) Sleep apnea (Acute) Asthma (Acute) Past Medical History Medical History Seasonal allergies Postgastrectomy malabsorption Prediabetes GERD (gastroesophageal reflux disease) Sleep apnea Asthma Morbid obesity Family History Family History Mother HTN (hypertension) Father HTN (hypertension) Diabetes Son No problems noted. Son No problems noted. Surgical History Surgical History S/P laparoscopic sleeve gastrectomy (12/2022) History of esophagogastroduodenoscopy (EGD) H/O colonoscopy History of Problems with Anesthesia: No Social History Social History Household Members: Family Housing: Apartment Are you a primary hospice care consultant to a significant other at home: No Do you presently have visiting nurse or other home services: No Alcohol intake: never Patient Tobacco Use Status: Never used Tobacco Use of substances other than those prescribed or required for medical reasons: No Have you been hit, kicked, punched, or otherwise hurt by someone within the past year? If so, by whom?: No Are you DNR?: No Advance Directives: Yes Advance Directives Information Provided: No Advance Directives on File: Yes Advance Directives Date on File: 11/04/22 Poor oral hygiene: No service: No Current occupational status: employed Meds Allergies Allergy/AdvReac Type Severity Reaction Status Date / Time No Known Allergies Allergy Verified 12/14/24 06:22 Home Medications ?Medication ?Instructions ?Recorded ?Confirmed ?Last Taken ?Type albuterol sulfate 0.63 mg/3 mL 0.63 mg inhalation QID PRN Wheezing 04/29/22 12/10/24 Unknown History solution for nebulization budesonide 0.5 mg/2 mL suspension 0.25 mg inhalation BID PRN Wheezing 04/29/22 12/10/24 Unknown History for nebulization (Pulmicort) cetirizine 10 mg capsule (All Day 10 mg PO DAILY PRN Allergy Symptoms 02/03/23 12/10/24 12/14/24 History Allergy (cetirizine)) cholecalciferol (vitamin D3) 125 125 mcg PO DAILY 02/03/23 12/10/24 Unknown History mcg (5,000 unit) capsule fusion MVI PO DAILY 04/16/23 12/01/24 Unknown History ascorbate calcium (vitamin C) 500 500 mg PO DAILY 10/04/24 12/10/24 Unknown History mg tablet calcium carbonate 600 mg PO DAILY 10/04/24 12/10/24 Unknown History multivitamin 1 tab PO DAILY 10/04/24 12/10/24 Unknown History vitamin B12 2,500 mcg-folic acid 1 tab PO DAILY 10/04/24 12/10/24 Unknown History 400 mcg disintegrating tablet Exam Height,Weight and Vital Signs: Height 5 ft 7 in Weight 83.461 kg Pertinent Lab Results Pertinent Lab Results: Laboratory Tests 12/10/24 12/10/24 07:05 07:15 WBC 7.1 RBC 4.73 Hgb 14.3 Hct 43.1 MCV 91.1 MCH 30.2 MCHC 33.2 RDW 12.7 Plt Count 234 MPV 10.4 Immature Gran % (Auto) 0.3 Neut % (Auto) 46.0 Lymph % (Auto) 44.2 H [place] % (Auto) 6.8 Eos % (Auto) 2.0 Baso % (Auto) 0.7 Lymph # (Auto) 3.1 [place] # (Auto) 0.5 Eos # (Auto) 0.1 Baso # (Auto) 0.1 Abs Immat Gran (auto) 0.02 Absolute Neuts (auto) 3.3 Absolute Nucleated RBC 0.000 Nucleated RBC % (auto) 0.0 PT 11.6 INR 1.0 APTT 36.5 Sodium 145 Potassium 4.0 Chloride 107 Carbon Dioxide 29 Anion Gap 13 BUN 9 Creatinine 0.74 Estim Creat Clear Calc TNP Estimated GFR > 60 Random Glucose 84 Estimat Average Glucose 100 Hemoglobin A1c % 5.1 Insulin Level 4 Calcium 9.3 Iron 138 TIBC 268 % Saturation 51 H Unsat Iron Binding 130 Ferritin 168 Total Bilirubin 1.3 H AST 16 ALT 8 Alkaline Phosphatase 56 C-Reactive Protein < 0.10 Total Protein 6.7 Albumin 3.9 Triglycerides 66 Cholesterol 154 LDL Cholesterol, Calc 94 HDL Cholesterol 47 Vitamin B12 1060 H 25-OH Vitamin D Total 52.9 TSH 1.56 Blood Type A Positive Antibody Screen NEGATIVE Narrative Narrative: EKG 10/2022 Vent. Rate : 081 BPM ? ? Atrial Rate : 081 BPM ?? P-R Int : 170 ms? QRS Dur : 146 ms ? ? QT Int : 428 ms ? ? ? P-R-T Axes : 065 014 013 degrees ?? QTc Int : 497 ms ? Normal sinus rhythm Right bundle branch block Abnormal ECG No previous ECGs available ECHO 11/2022 Conclusions: - The left ventricular systolic function is normal.? The ? calculated ejection fraction is 55% by biplane method. ? - No obvious valvular pathology seen on this study.? Exercise Stress 11/2022 Protocol: KEN ? Max HR: 150 BPM? 87% of? Pred: 171 BPM Max BP: 132/082 mmHG Max Work Load: 8.4 METS ? Exercise stress test with exercise 6 min 56 sec of Ken protocol, achieving 87% ?MPHR, 8.4 METs, with mild sob, no chest discomfort, without arrythmia, with ?normotensive response to exercise, without EKG changes meeting criteria for ischemia. There are repolarization abnormalities noted in V1-V3 which is consistent with RBBB. In recovery his breathing? improved quickly. Test reviewed with Dr Kelsey. Assessment and Plan Assessment Anesthesia Assessment: Chart Reviewed Final Anesthetic Review History of Problems with Anesthesia: No Documented by User: Laury Valero MD 12/14/24 08:23 [facility] Past Medical History Medical History Seasonal allergies Postgastrectomy malabsorption Prediabetes GERD (gastroesophageal reflux disease) Sleep apnea Asthma Morbid obesity Family History Family History Mother HTN (hypertension) Father HTN (hypertension) Diabetes Son No problems noted. Son No problems noted. Surgical History Surgical History S/P laparoscopic sleeve gastrectomy (12/2022) History of esophagogastroduodenoscopy (EGD) H/O colonoscopy Social History Social History Household Members: Family Housing: Apartment Are you a primary hospice care consultant to a significant other at home: No Do you presently have visiting nurse or other home services: No Alcohol intake: never Patient Tobacco Use Status: Never used Tobacco Use of substances other than those prescribed or required for medical reasons: No Have you been hit, kicked, punched, or otherwise hurt by someone within the past year? If so, by whom?: No Are you DNR?: No Advance Directives: Yes Advance Directives Information Provided: No Advance Directives on File: Yes Advance Directives Date on File: 11/04/22 Poor oral hygiene: No service: No Current occupational status: employed Meds Allergies Allergy/AdvReac Type Severity Reaction Status Date / Time No Known Allergies Allergy Verified 12/14/24 06:22 Home Medications ?Medication ?Instructions ?Recorded ?Confirmed ?Last Taken ?Type albuterol sulfate 0.63 mg/3 mL 0.63 mg inhalation QID PRN Wheezing 04/29/22 12/10/24 Unknown History solution for nebulization budesonide 0.5 mg/2 mL suspension 0.25 mg inhalation BID PRN Wheezing 04/29/22 12/10/24 Unknown History for nebulization (Pulmicort) cetirizine 10 mg capsule (All Day 10 mg PO DAILY PRN Allergy Symptoms 02/03/23 12/10/24 12/14/24 History Allergy (cetirizine)) cholecalciferol (vitamin D3) 125 125 mcg PO DAILY 02/03/23 12/10/24 Unknown History mcg (5,000 unit) capsule fusion MVI PO DAILY 04/16/23 12/01/24 Unknown History ascorbate calcium (vitamin C) 500 500 mg PO DAILY 10/04/24 12/10/24 Unknown History mg tablet calcium carbonate 600 mg PO DAILY 10/04/24 12/10/24 Unknown History multivitamin 1 tab PO DAILY 10/04/24 12/10/24 Unknown History vitamin B12 2,500 mcg-folic acid 1 tab PO DAILY 10/04/24 12/10/24 Unknown History 400 mcg disintegrating tablet Exam Airway Mallampati Class: III TM Dist: >3cm Neck ROM: Full Loose/Missing/Broken Teeth: No Heart: RRR Lungs: CTA Assessment and Plan Assessment Anesthesia Assessment: Anesthesia Plan Discussed Final Anesthetic Review NPO: Yes ASA Class: II Final Preanesthetic Review: Meds/Allgs Chart Reviewed, Consent Obtained/Reviewed and Anes Risks/Benef Reviewed Patient Risk: Low Procedure Risk: Low Anesthetic Plan Anesthetic Plan: GA Disposition: Standard PACU
[2024-12-13 23:23] LABS: Zinc 71 mcg/dL (60-130)
[2024-12-14] VITALS (15 sets, daily range): BP systolic 105–124; BP diastolic 59–72; PULSE 60–76; RESP 16–18; TEMP 36.6–37.1; O2SAT 93–99; BMI 29.0
[2024-12-14] MEDS: Lactated Ringers 1,000 ML 100 ML IVCONT (06:28)
--- NOTE | 2024-12-14 07:33 | MHC.SHP ---
Pre-Procedural Eval Section A - 24 Hr Update-Section A only Date of Service: 12/14/24 The patient is an INPATIENT: No The patient has been examined within 24 hours of the surgical procedure. The History & Physical has been completed within 30 days and I have reviewed it.: Yes Section B - Complete if H&P > 30 days Chief Complaint: Excessive and redundant skin and subcutaneous tiss Relevant Family History (Specify if Yes): No Relevant Social History: None Present Medications: None Medical History: No relevant PMH History of Previous Operations: Relevant previous surgery/procedure and date(s) (Lap sleeve gastrectomy) Allergies: Allergies Allergy/AdvReac Type Severity Reaction Status Date / Time No Known Allergies Allergy Verified 12/14/24 06:22 Review of Systems Sugical H&P ROS: Negative: Constitution, Cardiovascular, Respiratory, Neurological, Psychiatric, Hem-Onc, Allergic/Immunologic, Gastrointestinal, Genitourinary, Musculoskeletal, Integumentary, Endocrine and Eyes/Ears/Nose/Throat Exam Surgical H&P Exam: Normal: HEENT, Normal: Heart, Normal: Lungs, Normal: Extremities, Normal: Abdomen, Normal: Skin and Normal: Neurological Plan Diagnosis/Plan: Unchanged I have reviewed the history and physical and performed a pertinent physical examination on my patient. No changes have occurred unless specified. Time Spent With Patient Time: Total time managing care of this patient today ____ minutes.
--- NOTE | 2024-12-14 07:36 | P.BOP_ITS ---
Brief Operative Note Date of Service: 12/14/24 Pre-op diagnosis: Excess skin Post-op diagnosis: same Procedure: PROCEDURE: Panniculectomy with umbilical transposition and bilateral subcutaneous fat flaps INDICATION: This a 49 year old male who underwent laparoscopic sleeve gastrectomy on 01/07/2023. She had an excellent result achieving a BMI of 28 kg/m2 with a total weight loss of 109.3lbs, or 38% of her TBWL. As a result, she has developed panniculitis which has not resolved despite continuous use of clotrimazole ointment as well as skin irritation. On exam she has extreme skin laxity due to massive weight loss, with the abdominal pannus completely hanging 4cm below the pubis. Panniculectomy was recommended. We discussed the two options for the panniculectomy of using a combined vertical and horizontal incisions or just a horizontal (bikini) incision. It was my recommendation to do only horizontal incision based on her body habitus and skin laxity. The patient agreed with this. Risks and complications were discussed with the patient including bleeding, infection, umbilical loss, flap necrosis, asymmetry, dehiscence, seroma, VTE. The patient understood the risks and was in agreement to proceed with surgery. PROCEDURE: The incisions were appropriately marked at the preop area with the patient standing and laying down. After induction of general anesthesia a Hendricks catheter and pneumatic compression devices were placed. The patient was prepped and draped in the usual sterile manner and the incisions were marked again and confirmed. The skin was infiltrated with lidocaine and epinephrine. The #10 blade scalpel was used for the large incisions and the #15 blade scalpel for the umbilicus. Cautery was used to divide the subcutaneous tissues until the fascia was identified. Then I used the cautery to separate the pannus from the fascia. The inferior incision was made initially and I mobilized the flap for a several centimeters cephalad to the umbilicus. The umbilicus was incised circumferentially and detached from the surrounding tissues all the way to the fascia while its stalk was preserved. With the patient in reflex position I confirmed that the skin flaps were appropriate and would allow for the tissues to come together with reasonable tension. At that point a horizontal incision was made 4 cm above the umbilicus. #10 blade was used for the skin, cautery for the dermis and for the remaining tissues. A subcutaneous fat flap was raised from the upper skin flap in order to fill the space under the skin and support the closure of the two flaps. In addition the inferior flap was mobilized caudally for a few centimeters to create a space for the subcutaneous fat flap as well as relieve tension from the closure. A circumferential incision was made at the area where the umbilicus would be re-implanted. The umbilicus was appropriately oriented and was delivered through the defect and was secured in place with a Raiza. No bleeding was noted anywhere. One ELKIN drain was placed from the left corner of the horizontal incision across the wound and was secured in place with a silk suture. The subcutaneous fat flap was secured under the inferior flap with several interrupted 3.0 Monocryl sutures. The two flaps were brought together and were attached at the midline of the horizontal incision with a #3.0 Monocryl suture. At that point the umbilicus was properly oriented and was re-approximated to the skin with 8 interrupted 3.0 Monocryl sutures. In a similar fashion the skin flaps were re-approximated with multiple 3.0 Monocryl sutures. The skin was closed in all incisions and umbilicus with 4.0 Monocryl sutures. Steri-strips, xeroform gauzes and gauzes were used to cover the incisions. An abdominal binder was also placed. The was awaken and was transferred to the recover room in a stable condition. I was present and performed the entire procedure. Ms. Luna was the social research assistant. Nader Domínguez MD, PhD, FACS Surgeon: Albert Domínguez MD Surgeon: Albert Domínguez MD Anesthesia: GETA and local Was an Armature Varnisher used for this Procedure?: No Armature Varnisher: Darwin Garrison Estimated blood loss (mL): 10 IV fluids (mL): 1,800 Urine output (mL): 0 (No Hendricks to record output) Pathology: other (Abdominal pannus) Condition: stable Disposition: PACU
[2024-12-14] MEDS: ceFAZolin Sodium/Dextrose,Iso 2 GM/50 ML PIGGYBACK IV (08:00)
[2024-12-14] MEDS: Acetaminophen 1,000 MG/100 ML PIGGYBACK 400 MG IV (10:20)
[2024-12-14] MEDS: oxyCODONE HCl Immed Release 5 MG TABLET PO (15:05)
[2024-12-15 16:09] LABS: Vitamin A 41 mcg/dL (38-98)
[2024-12-16 17:29] LABS: Vitamin B1 21 nmol/L (8-30)
== END 2024-12-14 15:52 | disposition home or self-care (01) ==
PROVIDERS: Visit Provider Surgery
PROC: 0JB80ZZ Excision of Abdomen Subcutaneous Tissue and Fascia, Open Approach (ICD-10-PCS; CPT 15830; principal; 2024-12-14 07:30)
DX: L98.7 Excessive and redundant skin and subcutaneous tissue (principal); M79.3 Panniculitis, unspecified; E65 Localized adiposity; K91.2 Postsurgical malabsorption, not elsewhere classified; R73.03 Prediabetes; Z98.84 Bariatric surgery status; Z90.3 Acquired absence of stomach [part of]; Z79.899 Other long term (current) drug therapy; K21.9 Gastro-esophageal reflux disease without esophagitis; J45.909 Unspecified asthma, uncomplicated
CPT/HCPCS: 15830; 15847; 36415; 80053; 80061; 82306; 82607; 82728; 83036; 83525; 83540; 84425; 84443; 84590; 84630; 85025; 85610; 85730; 86140; 86850; 86900; 86901; 88304; C9145; J0131; J0690; J1100; J1171; J2003; J2004; J2250; J2405; J2704; J3010; J3370

== ENCOUNTER → 2024-12-14 06:03 | Outpatient (BNV) | payer OTHER, BC, SELFPAY | PROVIDERS: Visit Provider Surgery | DX: M79.3 Panniculitis, unspecified (principal); L98.7 Excessive and redundant skin and subcutaneous tissue | CPT/HCPCS: 15830 ==

== ENCOUNTER 2024-12-20 10:44 | Outpatient (AMB) | payer OTHER, BC, SELFPAY ==
--- NOTE | 2024-12-20 11:05 | A.OFFVIS_ITS ---
Intake Visit Reasons: (OV) s/p Panniculectomy 12/14/24 Allergies No Known Allergies Allergy (Verified 12/14/24 06:22) HPI Comments Details: Patient is a pleasant 49-year-old male who returns to the office today in follow-up. He is status post panniculectomy performed on 12/14/2024. He states overall he is doing fairly well. Continues taking antibiotics and following the meal plan as given to him by Dr. Domínguez. Reports BM x2 and a proximally 40-60 mL of sanguinous fluid from the collection bulb. He is not doing any activity and continues to wear his abdominal binder. [facility] Medical History Seasonal allergies Postgastrectomy malabsorption Prediabetes GERD (gastroesophageal reflux disease) Sleep apnea Asthma Morbid obesity Surgical History S/P laparoscopic sleeve gastrectomy (12/2022) History of esophagogastroduodenoscopy (EGD) H/O colonoscopy Family History Mother HTN (hypertension) Father HTN (hypertension) Diabetes Son No problems noted. Son No problems noted. Social History Household Members: Family Housing: Apartment Are you a primary personal care assistant to a significant other at home: No Do you presently have visiting nurse or other home services: No 75 years or older and lives alone: No Alcohol intake: never Patient Tobacco Use Status: Never used Tobacco Advance Directives Date on File: 11/04/22 service: No Current occupational status: employed Physical Exam Skin Other: Transverse abdominal incision healing nicely. No evidence of dehiscence or infection. Umbilicus is viable. There is ecchymosis in the scrotal area. Assessment & Plan Assessment & Plan (1) S/P panniculectomy: Code(s): Z98.890 - Other specified postprocedural states Category: Surgical Plan: Patient encouraged to continue to wear supportive underwear, continue antibiotics and meal plan. Continue to track output from the drain. Return to clinic 1 week.
--- OUTSIDE RECORDS SUMMARY | 2024-12-20 11:29 | XMS_ITS | Patient Health Record ---
Author Organization [facility] Address [address] [facility] [address] [place] [address] Care Team Providers Care World Travel Counselor Name Role Phone CoppolaRonald Primary Care Provider Russell Garduno Unavailable [phone] Allergies No Known Allergies Results Component Value Reference Range Notes *Vitamin D, 25-Hydroxy (0819 50) Reviewed date:05/10/2024 02:15:32 PM Interpretation: Performing Lab:[facility], [facility] [place], [place] [id number], Phone - [phone], Director - Judie Notes/Report: Vitamin D, 25-Hydroxy 36.0 30.0-100.0 ng/mL Vitamin D deficiency has been defined by the [place] and an Endocrine Society practice guideline as a level of serum 25-OH vitamin D less than 20 ng/mL (1,2). The Endocrine Society went on to further define vitamin D insufficiency as a level between 21 and 29 ng/mL (2). 1. IOM ([place]). 2010. Dietary reference intakes for calcium and D. [place]: The National Academies Press. 2. Preet MF, Munira NC, Angelika PATRICIO, et al. Evaluation, treatment, and prevention of vitamin D deficiency: an Endocrine Society clinical practice guideline. JCEM. 2010; 96(7):1911-30. *Hemogloblin A1c w/ eAG Est (194978) Reviewed date:05/10/2024 02:15:32 PM Interpretation: Performing Lab:[facility] [address] [id number], Phone - [phone], Director - [facility] Notes/Report: Hemoglobin A1c 5.5 4.8-5.6 % . Prediabetes: 5.7 - 6.4 Diabetes: >6.4 Glycemic control for adults with diabetes: <7.0 Estim. Avg Glu (eAG) 111 *Vitamin B12 (241007) Reviewed date:05/10/2024 02:15:32 PM Interpretation: Performing Lab:[address] [id number], Phone - [phone], Director - [facility] Notes/Report: Vitamin B12 386 280-4185 pg/mL *Lipid Panel (999720) Reviewed date:05/10/2024 02:15:32 PM Interpretation: Performing Lab:[address] [id number], Phone - [phone], Director - [facility] Notes/Report: Cholesterol, Total 148 100-199 mg/dL Triglycerides 62 0-149 mg/dL HDL Cholesterol 46 >39 mg/dL VLDL Cholesterol Boby 13 5-40 mg/dL LDL Chol Calc (NIH) 89 0-99 mg/dL *PSA, Serum (920361) (Not ye t reviewed by provider) Interpretation: Performing Lab:[address] [id number], Phone - [phone], Director - [facility] Notes/Report: Prostate Specific Ag 0.9 0.0-4.0 ng/mL Zahida ECLIA methodology. . According to the [place] [employer], Serum PSA should decrease and [...] (Not yet reviewed by provider) Interpretation: Performing Lab:[address] [id number], Phone - [phone], Director - Judie Notes/Report: Vitamin D, 25-Hydroxy 33.0 30.0-100.0 ng/mL Vitamin D deficiency has been defined by the [place] and an Endocrine Society practice guideline as a level of serum 25-OH vitamin D less than 20 ng/mL (1,2). The Endocrine Society went on to further define vitamin D insufficiency as a level between 21 and 29 ng/mL (2). 1. IOM ([place]). 2010. Dietary reference intakes for calcium and D. [place]: The National Academies Press. 2. Preet MF, Munira DAVEY, Angelika PATRICIO, et al. Evaluation, treatment, and prevention of vitamin D deficiency: an Endocrine Society clinical practice guideline. JCEM. 2010; 96(7):1911-30. *Hemogloblin A1c w/ eAG Est (218448) (Not yet reviewed by provider) Interpretation: Performing Lab:[facility] [address] [place], [place] [id number], Phone - [phone], Director - Judie Notes/Report: Hemoglobin A1c 5.4 4.8-5.6 % . Prediabetes: 5.7 - 6.4 Diabetes: >6.4 Glycemic control for adults with diabetes: <7.0 Estim. Avg Glu (eAG) 108 *Vitamin B12 (109274) (Not y et reviewed by provider) Interpretation: Performing Lab:[facility], [facility] [address] [place], [place] [id number], Phone - [phone], Director - Judie Notes/Report: Vitamin B12 373 869-9056 pg/mL *Lipid Panel (437999) (Not y et reviewed by provider) Interpretation: Performing Lab:[facility], [facility] [address] [place], [place] [id number], Phone - [phone], Director - Judie Notes/Report: Cholesterol, Total 178 100-199 mg/dL Triglycerides 52 0-149 mg/dL HDL Cholesterol 47 >39 mg/dL VLDL Cholesterol Boby 10 5-40 mg/dL LDL Chol Calc ([facility]) 121 0-99 mg/dL *Urinalysis, Routine Urinaly sis, by dip stick or tablet reagent Reviewed date:10/20/2024 09:51:16 AM Interpretation: Performing Lab: Notes/Report: Leukocytes Neg Urine-Color Yellow Appearance Cloudy Specific [place] 1.025 pH 6.0 Glucose Neg Protein 0.14 Occult Blood Neg Bilirubin 1+ Urobilinogen,Semi-Qn 3.5 Nitrite, Urine Neg Ketones Neg *Vitamin D, 25-Hydroxy (0819 50) (Not yet reviewed by provider) Interpretation: Performing Lab:[facility] [address] [id number], Phone - [phone], Director - MDYeison Notes/Report: Vitamin D, 25-Hydroxy 36.0 30.0-100.0 ng/mL Vitamin D deficiency has been defined by the [place] and an Endocrine Society practice guideline as a level of serum 25-OH vitamin D less than 20 ng/mL (1,2). The Endocrine Society went on to further define vitamin D insufficiency as a level between 21 and 29 ng/mL (2). 1. IOM ([place]). 2010. Dietary reference intakes for calcium and D. [place]: The National Academies Press. 2. Preet MF, Munira NC, Angelika PATRICIO, et al. Evaluation, treatment, and prevention of vitamin D deficiency: an Endocrine Society clinical practice guideline. JCEM. 2010; 96(7):1911-30. *Vitamin B12 (477679) (Not y et reviewed by provider) Interpretation: Performing Lab:[facility], [address] [place] [id number], Phone - [phone], Director - Judie Notes/Report: Vitamin B12 460 555-0010 pg/mL *PSA, Serum (422253) Reviewed date:09/28/2024 03:26:16 PM Interpretation: Performing Lab: Notes/Report: Prostate Specific Ag 1.0 0.0-4.0 ng/mL [facility] (486405) Reviewed date:09/28/2024 03:26:16 PM Interpretation: Performing Lab: [...] Boby 13 5-40 mg/dL LDL Chol Calc ([facility]) 124 0-99 mg/dL T. Chol/HDL Ratio [...] Status Risk Notes Problem Vitamin B deficiency (23754943) Deficiency of other specified B group vitamins (E53.8) Active confirmed Problem Obesity (395186912) Obesity, unspecified (E66.9) Active confirmed Problem History of bariatric surgical procedure (632960149) Bariatric surgery status (Z98.84) Active confirmed Problem 848180721 Dyslipidemia (E78.5) Active confirmed Problem Asthma (093678177) Asthma (J45.909) Active confirmed Problem 07826192 Vitamin D deficiency (E55.9) Active confirmed Problem 539343024 Morbid obesity (E66.01) Active confirmed Problem 15607691 Migraine without status migrainosus, not intractable, unspecified migraine type (G43.909) Active confirmed Problem 36762761 Hypogonadism mal e (E29.1) Active confirmed Problem 679877188 Mild persistent asthma without complication (J45.30) Active confirmed Problem 262871067 Other elevated white blood cell (WBC) count (D72.828) Active confirmed Problem 96000409 Lymphocytosis (D72.820) Active confirmed Problem 264824387 Obesity (BMI 30-39.9) (E66.9) Active confirmed Problem 664804075 House dust mite allergy (Z91.09) Active confirmed Problem 941096475 Type 2 diabetes mellitus without complication, without long-term current use of insulin (E11.9) Active confirmed Problem 37404330 Right bundle branch block (RBBB) (I45.10) Active confirmed Problem 308018126 Mild intermitten t asthma, unspecified whether complicated (J45.20) Active confirmed Problem 054944499 Seasonal allergi c rhinitis, unspecified trigger (J30.2) Active confirmed Problem Hepatic fibrosis (disorder) (43017003) Hepatic fibrosis, unspecified (K74.00) Active confirmed Vital [...] 12/09/2024 Encounters Encounter Location Date Provider Diagnosis [place] [address] [address] 03/18/2024 Ronald Coppola B12 deficiency E53.8 ; Dyslipidemia E78.5 ; Vitamin D deficiency E55.9 and Type 2 diabetes mellitus without complication, without long-term current use of insulin E11.9 [place] [address] [address] 03/25/2024 Ronald Coppola Dyslipidemia E78.5 ; Vitamin D deficiency E55.9 ; Type 2 diabetes mellitus without complication, without long-term current use of insulin E11.9 ; B12 deficiency E53.8 and Screening for prostate cancer Z12.5 [place] [address] [address] 04/14/2024 Russell Garduno Migraine without sta tus migrainosus, not intractable, unspecified migraine type G43.909 [place] [address] [address] 06/07/2024 Russell Garduno Type 2 diabetes madan itus without complication, without long-term current use of insulin E11.9 ; Vitamin D deficiency E55.9 ; Dyslipidemia E78.5 ; B12 deficiency E53.8 and Screening for prostate cancer Z12.5 [place] [address] [address] 06/16/2024 Ronald Coppola Dyslipidemia E78.5 ; Vitamin D deficiency E55.9 ; Type 2 diabetes mellitus without complication, without long-term current use of insulin E11.9 ; B12 deficiency E53.8 and Screening for prostate cancer Z12.5 [place] [address] [address] 08/17/2024 Ronald Coppola Painful urination R3 0.9 [place] [address] [place] [phone] 09/24/2024 Russell Laureen B12 deficiency E53.8 ; Vitamin D deficiency E55.9 and Encounter for screening Z13.9 [place] [address] [address] 09/30/2024 Ronald Coppola Dyslipidemia E78.5 ; Vitamin D deficiency E55.9 ; Type 2 diabetes mellitus without complication, without long-term current use of insulin E11.9 ; B12 deficiency E53.8 and Screening for prostate cancer Z12.5 [place] [address] [address] 11/16/2024 Ronald Coppola Sports physical Z02. 5 and Right bundle branch block (RBBB) I45.10 [place] [address] [address] 12/09/2024 Ronald Coppola Status post panniculectomy Z98.890 and Administrative encounter Z02.[address] [address] 03/02/2024 Ronald Coppola Medication refill Z7 6.[address] [address] 12/07/2024 Ronald Coppola Assessments Encounter Date Diagnosis [...] RBBB. States that he was referred to Instructor Of Sociology and reprots of having multitudes of tests [...] Test Name Order Date Vitamin A, Serum (227925) 07/08/2023 *Insulin (950164) 07/08/2023 *CBC With Differential/Platelet (125349) 07/08/2023 *Iron and TIBC (362811) 07/08/2023 *Vitamin D, 25-Hydroxy (731760) 07/08/20 23 Hemoglobin A1c (922770) 07/08/2023 *C-Reactive Protein, Cardiac (597616) *Lipid Panel (757321) 07/08/2023 Basic Metabolic Panel (8) (137408) 07/08 Vitamin B12 and Folate (493324) 07/08/20 23 *Ferritin, Serum (790174) 07/08/2023 TSH reflex to T4F 07/08/2023 *PSA, Serum (402243) 06/07/2024 *Vitamin D, 25-Hydroxy (990812) 06/07/20 24 *Hemogloblin A1c w/ eAG Est (462075) *Vitamin B12 (041166) 06/07/2024 *Lipid Panel (709239) 06/07/2024 *Vitamin D, 25-Hydroxy (202933) 09/24/19 25 *Vitamin B12 (532226) 09/24/2024 Next Appt Details Provider Name:Ronald Coppola, 01/28/2025 08:00:00 AM, [address], [place], [address], Provider Name:Ronald Coppola, 02/03/2025 10:00:00 AM, [address], [place], [address], Insurance Providers Payer Name Payer Address Payer Phone Subscriber Number Group Number Insured Name Patient Relationship to Insured Coverage Start Date Coverage End Date [employer] [facility] [address] [place] [address] [id number] Preston Nuñez Self - patient is the insured 4 [employer] [facility] [address] [place] [address] [id number] Preston Nuñez Self - patient is the insured 8 8 [employer] [facility] [employer] [facility] [address] [place] [address] [id number] Preston Nuñez Self - patient is the insured 7 4 Medications Administered Medication Instructions Date of Administration Dosage Notes Ketorolac Tromethamine 04/14/2024 2 mL Medical (General) History Medical History History ICD Code Asthma Seasonal allergies Obesity Diabetes Migraine headaches Surgical History Surgery Date(Month/Year) Colonoscopy 2021 Gastric bypass surgery (December 2022).
--- OUTSIDE RECORDS SUMMARY | 2024-12-20 11:29 | XMS_ITS | Patient Health Record ---
Author Organization [facility] Address [address] [place] [address] Care Team Providers Care Survey Questionnaire Designer Name Role Phone Fernanda Cherry Unavailable [phone] Reason For Referral No Information Plan Of Treatment No Information Insurance Providers Payer Name Payer Address Payer Phone Subscriber Number Group Number Insured Name Patient Relationship to Insured Coverage Start Date Coverage End Date [facility] [address] [place] [id number] Preston Clarke Self - patient is the insured Medical (General) History Medical History History ICD Code Asthma Surgical History Surgery Date(Month/Year)
--- OUTSIDE RECORDS SUMMARY | 2024-12-20 11:30 | XMS_ITS ---
Author Organization [facility] Address [address] [place] [address] Care Team Providers Care Comb Winder Name Role Phone Ronald Coppola Primary Care Provider [phone] Allergies No Known Allergies REASON FOR [...] 11/16/2024 Encounters Encounter Location Date Provider Diagnosis [facility] [place] [address] [facility] [address] [place] [address] 11/16/2024 Ronald Coppola Sports physical Z02. 5 [...] RBBB. States that he was referred to [employer] and reprots of having multitudes of tests (including stress test) and all were benign. Plan Of Treatment Next Appt Details Follow Up: prn, Reason: Provider Name:Ronald Coppola, 01/28/2025 08:00:00 AM, [address], [place] [address], [place], [address], Provider Name:Ronald Coppola, 02/03/2025 10:00:00 AM, [address], [facility] [address], [place], [address], Progress Notes * Preston STARR MDOB: (49 yo M)Acc No.[id number]:11/16/2024 Progress Note - Follow-Up Patient:?Vandana STARRfaby Hernández Provider:?Ronald Coppola MD :1975???Age:49 Y???Sex:Male Howard e:11/16/2024 External Visit ID:[id number] Address:[address] [place] [address], [facility] 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 * Social History:?Tobacco Use:?Tobacco [...] RBBB. States that he was referred to [employer] and reprots of having multitudes of tests (including stress test) and all were benign.?? * Procedure Codes:? * Follow Up:?prn * * Sign off status: Completed true * Provider:?Ronald Coppola MD Date:? Generated for Rosai margaret/Xenia/eTransmitting on:?12/20/2024 10:29 AM CDT History and Physical Notes * [...]
--- OUTSIDE RECORDS SUMMARY | 2024-12-20 11:30 | XMS_ITS ---
Author Organization [facility] Address [address] [place] [address] Care Team Providers Care Operating Systems Programmer Name Role Phone Abdon Ronald Primary Care Provider REASON FOR VISIT letter Encounters Encounter Location Date Provider Diagnosis [facility] [address] [place] [address] 12/07/2024 Ronald Coppola Plan Of Treatment Next Appt Details Provider Name:Ronald Coppola, 01/28/2025 08:00:00 AM, [address], [place], [address], Provider Name:Ronald Coppola, 02/03/2025 10:00:00 AM, [address], [address], [place], [address], Progress Notes * Preston STARR MDOB: (49 yo M)Acc No.[id number]:12/07/2024 Patient:?Henrry STARR :1975???Age:49 Y???Sex:Male Address:[address], , [place] [address] * true * Date:? Generated for Printi ng/Faxing/eTransmitting on:?12/20/2024 10:30 AM CDT
--- OUTSIDE RECORDS SUMMARY | 2024-12-20 11:30 | XMS_ITS ---
Author Organization [facility] Address [address] [place] [address] Care Team Providers Care Teller Coordinator Name Role Phone Abdon Ronald Primary Care [...] 12/09/2024 Encounters Encounter Location Date Provider Diagnosis [facility] [address] [facility] [address] [place] [address] 12/09/2024 Ronald Coppola Status post panniculectomy Z98.890 and Administrative encounter Z02.9 Assessments Encounter Date Diagnosis (ICD Code) Assessment Notes Treatment Notes Treatment Clinical Notes Section Notes 12/09/2024 Status post panniculectomy (ICD-10 - Z98.890) 12/09/2024 Administrative encounter (ICD-10 - Z02.9) Letter written Plan Of Treatment Next Appt Details Follow Up: prn, Reason: Provider Name:Ronald Coppola, 01/28/2025 08:00:00 AM, [address], [place], [address], Provider Name:Ronald Nietoel, 02/03/2025 10:00:00 AM, [address], [place], [address], Progress Notes * Preston STARR MDOB: (49 yo M)Acc No.[id number]:12/09/2024 Progress Note - Follow-Up Patient:?Vandana STARRfaby Hernández Provider:?Ronald Coppola MD :1975???Age:49 Y???Sex:Male Howard e:12/09/2024 External Visit ID:[id number] Address:[address] [place] [address], [facility] 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 * Social History:?Tobacco Use:?Tobacco [...] Provider:?Ronald Coppola MD Date:? Generated for Nadine robles/Xenia/Shanan on:?12/20/2024 10:30 AM CDT History and Physical Notes * [...]
== END 2024-12-20 11:23 | disposition home or self-care (01) ==
LOC: HO.HBS 10:45
PROVIDERS: PCP Internal Medicine Cardiovascular Disease; Visit Provider Physician Assistant Surgical
DX: Z98.890 Other specified postprocedural states (principal)
CPT/HCPCS: 99024

== ENCOUNTER 2024-12-27 08:20 | Outpatient (AMB) | payer OTHER, BC, SELFPAY ==
--- OUTSIDE RECORDS SUMMARY | 2024-12-27 08:26 | XMS_ITS | Patient Health Record ---
Author Organization [facility] Urgent Care - So [facility] Address [address] [place] [address] Care Team Providers Care Administrator Name Role Phone Fernanda Cherry Unavailable [phone] Reason For Referral No Information Plan Of Treatment No Information Insurance Providers Payer Name Payer Address Payer Phone Subscriber Number Group Number Insured Name Patient Relationship to Insured Coverage Start Date Coverage End Date [facility] [address] [place] [address] [id number] Preston Clarke Self - patient is the insured Medical (General) History Medical History History ICD Code Asthma Surgical History Surgery Date(Month/Year)
--- OUTSIDE RECORDS SUMMARY | 2024-12-27 08:26 | XMS_ITS ---
Author Organization [facility] Address [address] [place] [address] Care Team Providers Care Director Occupational Name Role Phone Ronald Coppola Primary Care Provider [phone] Allergies No Known Allergies REASON FOR [...] [facility] [place] [address] [place] [address] 11/16/2024 Ronald Coppola Sports physical Z02. 5 [...] RBBB. States that he was referred to Turn Operator and reprots of having multitudes of tests (including stress test) and all were benign. Plan Of Treatment Next Appt Details Follow Up: prn, Reason: Provider Name:Ronald Coppola, 01/28/2025 08:00:00 AM, [address], [place] [address], [place], [address], Provider Name:Ronald Coppola, 02/03/2025 10:00:00 AM, [address], 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 * Social History:?Tobacco Use:?Tobacco [...] RBBB. States that he was referred to Turn Operator and reprots of having multitudes of tests (including stress test) and all were benign.?? * Procedure Codes:? * Follow Up:?prn * * Sign off status: Completed true * Provider:?Ronald Coppola MD Date:? Generated for Rosai margaret/Xenia/eTransmitting on:?12/27/2024 07:26 AM CDT History and Physical Notes * [...]
--- OUTSIDE RECORDS SUMMARY | 2024-12-27 08:26 | XMS_ITS | Patient Health Record ---
Author Organization [facility] Address [address] [facility] [address] [place] [address] Care Team Providers Care Professional Volleyball Player Name Role Phone CoppolaRonald Primary Care Provider Russell Garduno Unavailable [phone] Allergies No Known Allergies Results Component Value Reference Range Notes *Vitamin D, 25-Hydroxy (0819 50) Reviewed date:05/10/2024 02:15:32 PM Interpretation: Performing Lab:[facility] [place], [facility] [place], [place] [id number], Phone - [phone], Director - Judie Notes/Report: Vitamin D, 25-Hydroxy 36.0 30.0-100.0 ng/mL Vitamin D deficiency has been defined by the Sieper of Medicine and an Endocrine Society practice guideline as a level of serum 25-OH vitamin D less than 20 ng/mL (1,2). The Endocrine Society went on to further define vitamin D insufficiency as a level between 21 and 29 ng/mL (2). 1. IOM (Sieper of Medicine). 2010. Dietary reference intakes for calcium and D. [place]: The National Academies Press. 2. Preet MF, Munira NC, Angelika PATRICIO, et al. Evaluation, treatment, and prevention of vitamin D deficiency: an Endocrine Society clinical practice guideline. JCEM. 2010; 96(7):1911-30. *Hemogloblin A1c w/ eAG Est (292300) Reviewed date:05/10/2024 02:15:32 PM Interpretation: Performing Lab:[facility] [address] [id number], Phone - [phone], Director - [facility] Notes/Report: Hemoglobin A1c 5.5 4.8-5.6 % . Prediabetes: 5.7 - 6.4 Diabetes: >6.4 Glycemic control for adults with diabetes: <7.0 Estim. Avg Glu (eAG) 111 *Vitamin B12 (146597) Reviewed date:05/10/2024 02:15:32 PM Interpretation: Performing Lab:[address] [id number], Phone - [phone], Director - [facility] Notes/Report: Vitamin B12 171 743-4333 pg/mL *Lipid Panel (872468) Reviewed date:05/10/2024 02:15:32 PM Interpretation: Performing Lab:[address] [id number], Phone - [phone], Director - [facility] Notes/Report: Cholesterol, Total 148 100-199 mg/dL Triglycerides 62 0-149 mg/dL HDL Cholesterol 46 >39 mg/dL VLDL Cholesterol Boby 13 5-40 mg/dL LDL Chol Calc (NIH) 89 0-99 mg/dL *PSA, Serum (686863) (Not ye t reviewed by provider) Interpretation: Performing Lab:[address] [id number], Phone - [phone], Director - [facility] Notes/Report: Prostate Specific Ag 0.9 0.0-4.0 ng/mL Zahida ECLIA methodology. . According to the [place] U[employer] Association, Serum PSA should decrease and [...] (Not yet reviewed by provider) Interpretation: Performing Lab:[address] [id number], Phone - [phone], Director - Judie Notes/Report: Vitamin D, 25-Hydroxy 33.0 30.0-100.0 ng/mL Vitamin D deficiency has been defined by the Sieper of Medicine and an Endocrine Society practice guideline as a level of serum 25-OH vitamin D less than 20 ng/mL (1,2). The Endocrine Society went on to further define vitamin D insufficiency as a level between 21 and 29 ng/mL (2). 1. IOM (Sieper of Medicine). 2010. Dietary reference intakes for calcium and D. [place]: The National Academies Press. 2. Preet MF, Munira DAVEY, Angelika PATRICIO, et al. Evaluation, treatment, and prevention of vitamin D deficiency: an Endocrine Society clinical practice guideline. JCEM. 2010; 96(7):1911-30. *Hemogloblin A1c w/ eAG Est (412855) (Not yet reviewed by provider) Interpretation: Performing Lab:[facility] [address] [address] [place], [place] [id number], Phone - [phone], Director - Judie Notes/Report: Hemoglobin A1c 5.4 4.8-5.6 % . Prediabetes: 5.7 - 6.4 Diabetes: >6.4 Glycemic control for adults with diabetes: <7.0 Estim. Avg Glu (eAG) 108 *Vitamin B12 (723949) (Not y et reviewed by provider) Interpretation: Performing Lab:[facility] [place], [facility] [address] [place], [place] [id number], Phone - [phone], Director - Judie Notes/Report: Vitamin B12 976 691-7217 pg/mL *Lipid Panel (976232) (Not y et reviewed by provider) Interpretation: Performing Lab:[facility] [place], [facility] [address] [place], [place] [id number], Phone - [phone], Director - Judie Notes/Report: Cholesterol, Total 178 100-199 mg/dL Triglycerides 52 0-149 mg/dL HDL Cholesterol 47 >39 mg/dL VLDL Cholesterol Boby 10 5-40 mg/dL LDL Chol Calc ([facility]) 121 0-99 mg/dL *Urinalysis, Routine Urinaly sis, by dip stick or tablet reagent Reviewed date:10/20/2024 09:51:16 AM Interpretation: Performing Lab: Notes/Report: Leukocytes Neg Urine-Color Yellow Appearance Cloudy Specific [place] 1.025 pH 6.0 Glucose Neg Protein 0.14 Occult Blood Neg Bilirubin 1+ Urobilinogen,Semi-Qn 3.5 Nitrite, Urine Neg Ketones Neg *Vitamin D, 25-Hydroxy (0819 50) (Not yet reviewed by provider) Interpretation: Performing Lab:[facility] [address] [id number], Phone - [phone], Director - MDYeison Notes/Report: Vitamin D, 25-Hydroxy 36.0 30.0-100.0 ng/mL Vitamin D deficiency has been defined by the Sieper of Medicine and an Endocrine Society practice guideline as a level of serum 25-OH vitamin D less than 20 ng/mL (1,2). The Endocrine Society went on to further define vitamin D insufficiency as a level between 21 and 29 ng/mL (2). 1. IOM (Sieper of Medicine). 2010. Dietary reference intakes for calcium and D. [place]: The National Academies Press. 2. Preet MF, Munira NC, Angelika PATRICIO, et al. Evaluation, treatment, and prevention of vitamin D deficiency: an Endocrine Society clinical practice guideline. JCEM. 2010; 96(7):1911-30. *Vitamin B12 (339784) (Not y et reviewed by provider) Interpretation: Performing Lab:[facility] [place], [address] [place] [id number], Phone - [phone], Director - Judie Notes/Report: Vitamin B12 199 965-3108 pg/mL *PSA, Serum (947408) Reviewed date:09/28/2024 03:26:16 PM Interpretation: Performing Lab: Notes/Report: Prostate Specific Ag 1.0 0.0-4.0 ng/mL [facility] (926183) Reviewed date:09/28/2024 03:26:16 PM Interpretation: Performing Lab: [...] Boby 13 5-40 mg/dL LDL Chol Calc ([facility]) 124 0-99 mg/dL T. Chol/HDL [...] Status Risk Notes Problem Vitamin B deficiency (21420237) Deficiency of other specified B group vitamins (E53.8) Active confirmed Problem Obesity (921919509) Obesity, unspecified (E66.9) Active confirmed Problem History of bariatric surgical procedure (855084793) Bariatric surgery status (Z98.84) Active confirmed Problem 163680087 Dyslipidemia (E78.5) Active confirmed Problem Asthma (123493815) Asthma (J45.909) Active confirmed Problem 50554811 Vitamin D deficiency (E55.9) Active confirmed Problem 525072379 Morbid obesity (E66.01) Active confirmed Problem 70041575 Migraine without status migrainosus, not intractable, unspecified migraine type (G43.909) Active confirmed Problem 01263966 Hypogonadism mal e (E29.1) Active confirmed Problem 802163362 Mild persistent asthma without complication (J45.30) Active confirmed Problem 465144177 Other elevated white blood cell (WBC) count (D72.828) Active confirmed Problem 36101914 Lymphocytosis (D72.820) Active confirmed Problem 756553052 Obesity (BMI 30-39.9) (E66.9) Active confirmed Problem 130074049 House dust mite allergy (Z91.09) Active confirmed Problem 441369655 Type 2 diabetes mellitus without complication, without long-term current use of insulin (E11.9) Active confirmed Problem 77801751 Right bundle branch block (RBBB) (I45.10) Active confirmed Problem 920597682 Mild intermitten t asthma, unspecified whether complicated (J45.20) Active confirmed Problem 153397310 Seasonal allergi c rhinitis, unspecified trigger (J30.2) Active confirmed Problem Hepatic fibrosis (disorder) (42237389) Hepatic fibrosis, unspecified (K74.00) Active confirmed Vital [...] 12/09/2024 Encounters Encounter Location Date Provider Diagnosis [place] [address] [address] 03/18/2024 Ronald Coppola B12 deficiency E53.8 ; Dyslipidemia E78.5 ; Vitamin D deficiency E55.9 and Type 2 diabetes mellitus without complication, without long-term current use of insulin E11.9 [place] [address] [address] 03/25/2024 Ronald Coppola Dyslipidemia E78.5 ; Vitamin D deficiency E55.9 ; Type 2 diabetes mellitus without complication, without long-term current use of insulin E11.9 ; B12 deficiency E53.8 and Screening for prostate cancer Z12.5 [place] [address] [address] 04/14/2024 Russell Garduno Migraine without sta tus migrainosus, not intractable, unspecified migraine type G43.909 [place] [address] [address] 06/07/2024 Russell Garduno Type 2 diabetes madan itus without complication, without long-term current use of insulin E11.9 ; Vitamin D deficiency E55.9 ; Dyslipidemia E78.5 ; B12 deficiency E53.8 and Screening for prostate cancer Z12.5 [place] [address] [address] 06/16/2024 Ronald Coppola Dyslipidemia E78.5 ; Vitamin D deficiency E55.9 ; Type 2 diabetes mellitus without complication, without long-term current use of insulin E11.9 ; B12 deficiency E53.8 and Screening for prostate cancer Z12.5 [place] [address] [address] 08/17/2024 Ronald Coppola Painful urination R3 0.9 [place] [address] [address] [place] [address] 09/24/2024 Russell Laureen B12 deficiency E53.8 ; Vitamin D deficiency E55.9 and Encounter for screening Z13.9 [place] [address] [address] 09/30/2024 Ronald Coppola Dyslipidemia E78.5 ; Vitamin D deficiency E55.9 ; Type 2 diabetes mellitus without complication, without long-term current use of insulin E11.9 ; B12 deficiency E53.8 and Screening for prostate cancer Z12.5 [place] [address] [address] 11/16/2024 Ronald Coppola Sports physical Z02. 5 and Right bundle branch block (RBBB) I45.10 [place] [address] [address] 12/09/2024 Ronald Coppola Status post panniculectomy Z98.890 and Administrative encounter Z02.[address] [address] 03/02/2024 Ronald Coppola Medication refill Z7 6.[address] [address] 12/07/2024 Ronald Coppola Assessments Encounter Date Diagnosis [...] RBBB. States that he was referred to Regulatory Compliance Engineer and reprots of having multitudes of tests [...] Test Name Order Date Vitamin A, Serum (506825) 07/08/2023 *Insulin (272786) 07/08/2023 *CBC With Differential/Platelet (966839) 07/08/2023 *Iron and TIBC (193602) 07/08/2023 *Vitamin D, 25-Hydroxy (649438) 07/08/20 23 Hemoglobin A1c (781622) 07/08/2023 *C-Reactive Protein, Cardiac (152224) *Lipid Panel (711767) 07/08/2023 Basic Metabolic Panel (8) (376899) 07/08 Vitamin B12 and Folate (306128) 07/08/20 23 *Ferritin, Serum (766453) 07/08/2023 TSH reflex to T4F 07/08/2023 *PSA, Serum (750163) 06/07/2024 *Vitamin D, 25-Hydroxy (083783) 06/07/20 24 *Hemogloblin A1c w/ eAG Est (804442) *Vitamin B12 (615366) 06/07/2024 *Lipid Panel (656310) 06/07/2024 *Vitamin D, 25-Hydroxy (632399) 09/24/19 25 *Vitamin B12 (606173) 09/24/2024 Next Appt Details Provider Name:Ronald Coppola, 01/28/2025 08:00:00 AM, [address], [address], [place], [address], Provider Name:Ronald Coppola, 02/03/2025 10:00:00 AM, [address], [address], [place], [address], Insurance Providers Payer Name Payer Address Payer Phone Subscriber Number Group Number Insured Name Patient Relationship to Insured Coverage Start Date Coverage End Date [facility] [address] [place] [address] [id number] Preston Nuñez Self - patient is the insured 4 [facility] [address] [place] [address] [id number] Preston Nuñez Self - patient is the insured 8 8 [facility] [address] [place] [address] [id number] Preston Nuñez Self - patient is the insured 7 4 Medications Administered Medication Instructions Date of Administration Dosage Notes Ketorolac Tromethamine 04/14/2024 2 mL Medical (General) History Medical History History ICD Code Asthma Seasonal allergies Obesity Diabetes Migraine headaches Surgical History Surgery Date(Month/Year) Colonoscopy 2021 Gastric bypass surgery (December 2022).
--- OUTSIDE RECORDS SUMMARY | 2024-12-27 08:27 | XMS_ITS ---
Author Organization [facility] Address [address] [place] [address] Care Team Providers Care Wood Grinder Operator Name Role Phone Coppola, Ronald Primary Care Provider [phone] REASON FOR VISIT letter Encounters Encounter Location Date Provider Diagnosis [facility] [address] [place] [address] 12/07/2024 Ronald Coppola Plan Of Treatment Next Appt Details Provider Name:Ronald Coppola, 01/28/2025 08:00:00 AM, [address], [address], [place], [address], Provider Name:Ronald Coppola, 02/03/2025 10:00:00 AM, [address], [address], [place], [address], Progress Notes * Preston STARR MDOB: (49 yo M)Acc No.[id number]:12/07/2024 Patient:?Henrry STARR :1975???Age:49 Y???Sex:Male Address:[address], , [place] [address] * true * Date:? Generated for Printi ng/Faxing/eTransmitting on:?12/27/2024 07:26 AM CDT
--- OUTSIDE RECORDS SUMMARY | 2024-12-27 08:27 | XMS_ITS ---
Author Organization [facility] Address [address] [place] [address] Care Team Providers Care Health Care Recruiter Name Role Phone Abdon Ronald Primary Care Provider [phone] Allergies No Known Allergies REASON FOR [...] 12/09/2024 Encounters Encounter Location Date Provider Diagnosis [facility] [address] [facility] [address] [place] [address] 12/09/2024 Ronald Coppola Status post panniculectomy Z98.890 and Administrative encounter Z02.9 Assessments Encounter Date Diagnosis (ICD Code) Assessment Notes Treatment Notes Treatment Clinical Notes Section Notes 12/09/2024 Status post panniculectomy (ICD-10 - Z98.890) 12/09/2024 Administrative encounter (ICD-10 - Z02.9) Letter written Plan Of Treatment Next Appt Details Follow Up: prn, Reason: Provider Name:Ronald Coppola, 01/28/2025 08:00:00 AM, [address], [address], [place], [address], Provider Name:Ronald Nietoel, 02/03/2025 10:00:00 AM, [address], [address], [place], [address], Progress Notes * Preston STARR MDOB: (49 yo M)Acc No.[id number]:12/09/2024 Progress Note - Follow-Up Patient:?Vandana STARRfaby Hernández Provider:?Ronald Coppola MD :1975???Age:49 Y???Sex:Male Howard e:12/09/2024 External Visit ID:[id number] Address:[address] [place] [address], [facility] Check Out:10:11 AM PATIENT CARE SPECIALIST Subjective: * Chief Complaints: * ???Rtw letter [...] nd Father: HTN , DM.?Paternal Grand Mother: [place].?Maternal aunt: BREAST [place].? * Social History:?Tobacco Use:?Tobacco [...] Coppola MD Date:? Generated for Nadine robles/Xenia/Shanna on:?12/27/2024 07:26 AM CDT History and Physical [...]
[2024-12-27 08:41] VITALS: BP 117/76; PULSE 67; TEMP 37.1; O2SAT 98
--- NOTE | 2024-12-27 08:41 | MHC.OFFVISWM ---
VS Expanded 12/27/24 08:41 BP 117/76 Blood Pressure Location Rt brachial Blood Pressure Position Sitting Pulse 67 Pulse Source Pulse Oximeter Temp 98.8 F Temperature Source Temporal Artery Scan Pulse Oximetry 98 Oxygen Delivery Method Room Air Intake Visit Reasons: (OV) s/p Panniculectomy 12/14/24 Allergies No Known Allergies Allergy (Verified 12/27/24 08:42) HPI Comments Details: Patient is a pleasant 49-year-old male who returns to the office today in follow-up. He is status post panniculectomy on 12/14/2024. He continues to take antibiotics as prescribed as well as following the meal plan. He states that he is having approximately 50 mL of serosanguineous fluid from the collection bulb. No complaints of pain. [facility] Medical History Seasonal allergies Postgastrectomy malabsorption Prediabetes GERD (gastroesophageal reflux disease) Sleep apnea Asthma Morbid obesity Surgical History (Updated 12/27/24 @ 08:43 by Paige Pedro CMA) S/P panniculectomy S/P laparoscopic sleeve gastrectomy (12/2022) History of esophagogastroduodenoscopy (EGD) H/O colonoscopy Family History Mother HTN (hypertension) Father HTN (hypertension) Diabetes Son No problems noted. Son No problems noted. Social History Household Members: Family Housing: Apartment Are you a primary health care consultant to a significant other at home: No Do you presently have visiting nurse or other home services: No 75 years or older and lives alone: No Alcohol intake: never Patient Tobacco Use Status: Never used Tobacco Advance Directives Date on File: 11/04/22 service: No Current occupational status: employed Physical Exam Vital Signs: Last Vital Signs Temp 98.8 F 12/27/24 08:41 Pulse 67 12/27/24 08:41 BP 117/76 12/27/24 08:41 Pulse Ox 98 12/27/24 08:41 Oxygen Delivery Method Room Air 12/27/24 08:41 Skin Other: Transverse and umbilical incisions healing nicely. No evidence of dehiscence or infection. Assessment & Plan Assessment & Plan (1) S/P panniculectomy: Code(s): Z98.890 - Other specified postprocedural states Category: Surgical Plan: Healing appropriately. Continue antibiotics, meal plan, abdominal binder, tracking output via collection bulb on a daily basis.
== END 2024-12-27 08:48 | disposition home or self-care (01) ==
LOC: HO.HBS 08:21
PROVIDERS: PCP Internal Medicine Cardiovascular Disease; Visit Provider Physician Assistant Surgical
DX: Z98.890 Other specified postprocedural states (principal)
CPT/HCPCS: 99024

== ENCOUNTER → 2024-12-27 08:20 | Outpatient (BNVA) | payer OTHER, BC, SELFPAY | PROVIDERS: PCP Internal Medicine Cardiovascular Disease; Visit Provider Physician Assistant Surgical ==

== ENCOUNTER 2025-01-04 08:23 | Outpatient (AMB) | payer OTHER, BC, SELFPAY ==
[2025-01-04 08:33] VITALS: BP 117/66; PULSE 72; TEMP 36.9; O2SAT 97
--- NOTE | 2025-01-04 08:33 | MHC.OFFVISWM ---
VS Expanded 01/04/25 08:33 BP 117/66 Blood Pressure Location Rt brachial Blood Pressure Position Sitting Pulse 72 Pulse Source Pulse Oximeter Temp 98.4 F Temperature Source Temporal Artery Scan Pulse Oximetry 97 Oxygen Delivery Method Room Air Intake Visit Reasons: (OV) s/p Panniculectomy 12/14/24 Allergies No Known Allergies Allergy (Verified 01/04/25 08:35) HPI Comments Details: Patient is a pleasant 49-year-old male who returns to the office today in follow-up. He is status post panniculectomy on 12/14/2024. He reports approximately 15 mL of serous fluid from the collection bulb over the last 3 days. He continues antibiotics and following meal plan as directed by Dr. Domínguez. [facility] Medical History Seasonal allergies Postgastrectomy malabsorption Prediabetes GERD (gastroesophageal reflux disease) Sleep apnea Asthma Morbid obesity Surgical History (Updated 12/27/24 @ 08:43 by Paige Pedro CMA) S/P panniculectomy S/P laparoscopic sleeve gastrectomy (12/2022) History of esophagogastroduodenoscopy (EGD) H/O colonoscopy Family History Mother HTN (hypertension) Father HTN (hypertension) Diabetes Son No problems noted. Son No problems noted. Social History Household Members: Family Housing: Apartment Are you a primary care management assistant to a significant other at home: No Do you presently have visiting nurse or other home services: No 75 years or older and lives alone: No Alcohol intake: never Patient Tobacco Use Status: Never used Tobacco Advance Directives Date on File: 11/04/22 service: No Current occupational status: employed Physical Exam Vital Signs: Last Vital Signs Temp 98.4 F 01/04/25 08:33 Pulse 72 01/04/25 08:33 BP 117/66 01/04/25 08:33 Pulse Ox 97 01/04/25 08:33 Oxygen Delivery Method Room Air 01/04/25 08:33 Skin Other: Umbilical incision is healing nicely. Transverse incision shows 1 mm x 2 mm opening in the mid incision. No evidence of infection. Assessment & Plan Assessment & Plan (1) S/P panniculectomy: Code(s): Z98.890 - Other specified postprocedural states Category: Surgical Plan: Overall, patient is doing well. The midline incision was reinforced with Steri-Strips. Four nylon sutures were removed from the umbilicus without difficulty. No evidence of dehiscence. Instructed to continue antibiotics, monitoring drain output. He may walk in his house. Return to clinic 1 week. Continue antibiotics and meal plan.
--- OUTSIDE RECORDS SUMMARY | 2025-01-04 08:37 | XMS_ITS | Patient Health Record ---
Author Organization [facility] Address [address] [facility] [address] [place] [address] Care Team Providers Care Compensation Analyst Name Role Phone CoppolaRonald Primary Care Provider [phone] Russell Garduno Unavailable [phone] Allergies No Known Allergies Results Component Value Reference Range Notes *Vitamin D, 25-Hydroxy (0819 50) Reviewed date:05/10/2024 02:15:32 PM Interpretation: Performing Lab:[facility] [place], [facility] [place], [place] [id number], Phone - [phone], Director - Judie Notes/Report: Vitamin D, 25-Hydroxy 36.0 30.0-100.0 ng/mL Vitamin D deficiency has been defined by the [place] of [employer] and an Endocrine Society practice guideline as a level of serum 25-OH vitamin D less than 20 ng/mL (1,2). The Endocrine Society went on to further define vitamin D insufficiency as a level between 21 and 29 ng/mL (2). 1. IOM ([place] of [employer]). 2010. Dietary reference intakes for calcium and D. [place]: The National Academies Press. 2. Preet MF, Munira NC, Angelika PATRICIO, et al. Evaluation, treatment, and prevention of vitamin D deficiency: an Endocrine Society clinical practice guideline. JCEM. 2010; 96(7):1911-30. *Hemogloblin A1c w/ eAG Est (800065) Reviewed date:05/10/2024 02:15:32 PM Interpretation: Performing Lab:[facility] [address] [id number], Phone - [phone], Director - [facility] Notes/Report: Hemoglobin A1c 5.5 4.8-5.6 % . Prediabetes: 5.7 - 6.4 Diabetes: >6.4 Glycemic control for adults with diabetes: <7.0 Estim. Avg Glu (eAG) 111 *Vitamin B12 (467220) Reviewed date:05/10/2024 02:15:32 PM Interpretation: Performing Lab:[address] [id number], Phone - [phone], Director - [facility] Notes/Report: Vitamin B12 039 911-1299 pg/mL *Lipid Panel (595586) Reviewed date:05/10/2024 02:15:32 PM Interpretation: Performing Lab:[address] [id number], Phone - [phone], Director - [facility] Notes/Report: Cholesterol, Total 148 100-199 mg/dL Triglycerides 62 0-149 mg/dL HDL Cholesterol 46 >39 mg/dL VLDL Cholesterol Boby 13 5-40 mg/dL LDL Chol Calc (NIH) 89 0-99 mg/dL *PSA, Serum (408391) (Not ye t reviewed by provider) Interpretation: Performing Lab:[address] [id number], Phone - [phone], Director - [facility] Notes/Report: Prostate Specific Ag 0.9 0.0-4.0 ng/mL Zahida ECLIA methodology. . According to the [place] [employer], Serum PSA should decrease and [...] (Not yet reviewed by provider) Interpretation: Performing Lab:[address] [id number], Phone - [phone], Director - Judie Notes/Report: Vitamin D, 25-Hydroxy 33.0 30.0-100.0 ng/mL Vitamin D deficiency has been defined by the [place] of [employer] and an Endocrine Society practice guideline as a level of serum 25-OH vitamin D less than 20 ng/mL (1,2). The Endocrine Society went on to further define vitamin D insufficiency as a level between 21 and 29 ng/mL (2). 1. IOM ([place] [employer]). 2010. Dietary reference intakes for calcium and D. [place]: The National Academies Press. 2. Preet MF, Munira DAVEY, Angelika PATRICIO, et al. Evaluation, treatment, and prevention of vitamin D deficiency: an Endocrine Society clinical practice guideline. JCEM. 2010; 96(7):1911-30. *Hemogloblin A1c w/ eAG Est (686779) (Not yet reviewed by provider) Interpretation: Performing Lab:[facility] [place] [address] [place], [place] [id number], Phone - [phone], Director - Judie Notes/Report: Hemoglobin A1c 5.4 4.8-5.6 % . Prediabetes: 5.7 - 6.4 Diabetes: >6.4 Glycemic control for adults with diabetes: <7.0 Estim. Avg Glu (eAG) 108 *Vitamin B12 (088783) (Not y et reviewed by provider) Interpretation: Performing Lab:[facility] [place], [facility] [address] [place], [place] [id number], Phone - [phone], Director - Judie Notes/Report: Vitamin B12 364 727-7295 pg/mL *Lipid Panel (148928) (Not y et reviewed by provider) Interpretation: Performing Lab:[facility] [place], [facility] [address] [place], [place] [id number], Phone - [phone], Director - Judie Notes/Report: Cholesterol, Total 178 100-199 mg/dL Triglycerides 52 0-149 mg/dL HDL Cholesterol 47 >39 mg/dL VLDL Cholesterol Boby 10 5-40 mg/dL LDL Chol Calc ([facility]) 121 0-99 mg/dL *Urinalysis, Routine Urinaly sis, by dip stick or tablet reagent Reviewed date:10/20/2024 09:51:16 AM Interpretation: Performing Lab: Notes/Report: Leukocytes Neg Urine-Color Yellow Appearance Cloudy Specific [place] 1.025 pH 6.0 Glucose Neg Protein 0.14 Occult Blood Neg Bilirubin 1+ Urobilinogen,Semi-Qn 3.5 Nitrite, Urine Neg Ketones Neg *Vitamin D, 25-Hydroxy (0819 50) (Not yet reviewed by provider) Interpretation: Performing Lab:[facility] [address] [id number], Phone - [phone], Director - MDYeison Notes/Report: Vitamin D, 25-Hydroxy 36.0 30.0-100.0 ng/mL Vitamin D deficiency has been defined by the [place] of [place] and an Endocrine Society practice guideline as a level of serum 25-OH vitamin D less than 20 ng/mL (1,2). The Endocrine Society went on to further define vitamin D insufficiency as a level between 21 and 29 ng/mL (2). 1. IOM ([place]). 2010. Dietary reference intakes for calcium and D. [place]: The National Academies Press. 2. Preet MF, Munira NC, Angelika PATRICIO, et al. Evaluation, treatment, and prevention of vitamin D deficiency: an Endocrine Society clinical practice guideline. JCEM. 2010; 96(7):1911-30. *Vitamin B12 (691501) (Not y et reviewed by provider) Interpretation: Performing [facility], [address] [place] [id number], Phone - [phone], Director - Judie Notes/Report: Vitamin B12 285 578-9285 pg/mL *PSA, Serum (757224) Reviewed date:09/28/2024 03:26:16 PM Interpretation: Performing Lab: Notes/Report: Prostate Specific Ag 1.0 0.0-4.0 ng/mL [facility] (788505) Reviewed date:09/28/2024 03:26:16 PM Interpretation: Performing Lab: [...] Boby 13 5-40 mg/dL LDL Chol Calc ([facility]) 124 0-99 mg/dL T. Chol/HDL Ratio [...] Status Risk Notes Problem Vitamin B deficiency (97070579) Deficiency of other specified B group vitamins (E53.8) Active confirmed Problem Obesity (600209216) Obesity, unspecified (E66.9) Active confirmed Problem History of bariatric surgical procedure (579687431) Bariatric surgery status (Z98.84) Active confirmed Problem 900707981 Dyslipidemia (E78.5) Active confirmed Problem Asthma (110486548) Asthma (J45.909) Active confirmed Problem 42484431 Vitamin D deficiency (E55.9) Active confirmed Problem 526330549 Morbid obesity (E66.01) Active confirmed Problem 33490086 Migraine without status migrainosus, not intractable, unspecified migraine type (G43.909) Active confirmed Problem 43005253 Hypogonadism mal e (E29.1) Active confirmed Problem 582726850 Mild persistent asthma without complication (J45.30) Active confirmed Problem 659292130 Other elevated white blood cell (WBC) count (D72.828) Active confirmed Problem 32204871 Lymphocytosis (D72.820) Active confirmed Problem 687080514 Obesity (BMI 30-39.9) (E66.9) Active confirmed Problem 618138778 House dust mite allergy (Z91.09) Active confirmed Problem 695687945 Type 2 diabetes mellitus without complication, without long-term current use of insulin (E11.9) Active confirmed Problem 08438308 Right bundle branch block (RBBB) (I45.10) Active confirmed Problem 924178841 Mild intermitten t asthma, unspecified whether complicated (J45.20) Active confirmed Problem 933278010 Seasonal allergi c rhinitis, unspecified trigger (J30.2) Active confirmed Problem Hepatic fibrosis (disorder) (60454307) Hepatic fibrosis, unspecified (K74.00) Active confirmed Vital [...] 12/09/2024 Encounters Encounter Location Date Provider Diagnosis [place] [address] [address] 03/18/2024 Ronald Coppola B12 deficiency E53.8 ; Dyslipidemia E78.5 ; Vitamin D deficiency E55.9 and Type 2 diabetes mellitus without complication, without long-term current use of insulin E11.9 [place] [address] [address] 03/25/2024 Ronald Coppola Dyslipidemia E78.5 ; Vitamin D deficiency E55.9 ; Type 2 diabetes mellitus without complication, without long-term current use of insulin E11.9 ; B12 deficiency E53.8 and Screening for prostate cancer Z12.5 [place] [address] [address] 04/14/2024 Russell Garduno Migraine without sta tus migrainosus, not intractable, unspecified migraine type G43.909 [place] [address] [address] 06/07/2024 Russell Garduno Type 2 diabetes madan itus without complication, without long-term current use of insulin E11.9 ; Vitamin D deficiency E55.9 ; Dyslipidemia E78.5 ; B12 deficiency E53.8 and Screening for prostate cancer Z12.5 [place] [address] [address] 06/16/2024 Ronald Coppola Dyslipidemia E78.5 ; Vitamin D deficiency E55.9 ; Type 2 diabetes mellitus without complication, without long-term current use of insulin E11.9 ; B12 deficiency E53.8 and Screening for prostate cancer Z12.5 [place] [address] [address] 08/17/2024 Ronald Coppola Painful urination R3 0.9 [place] [address] [place] [id number] 09/24/2024 Russell Laureen B12 deficiency E53.8 ; Vitamin D deficiency E55.9 and Encounter for screening Z13.9 [place] [address] [address] 09/30/2024 Ronald Coppola Dyslipidemia E78.5 ; Vitamin D deficiency E55.9 ; Type 2 diabetes mellitus without complication, without long-term current use of insulin E11.9 ; B12 deficiency E53.8 and Screening for prostate cancer Z12.5 [place] [address] [address] 11/16/2024 Ronald Coppola Sports physical Z02. 5 and Right bundle branch block (RBBB) I45.10 [place] [address] [address] 12/09/2024 Ronald Coppola Status post panniculectomy Z98.890 and Administrative encounter Z02.[address] [address] 03/02/2024 Ronald Coppola Medication refill Z7 6.[address] [address] 12/07/2024 Ronald Coppola Assessments Encounter Date Diagnosis [...] RBBB. States that he was referred to [facility] and reprots of having multitudes of [...] Test Name Order Date Vitamin A, Serum (953440) 07/08/2023 *Insulin (751605) 07/08/2023 *CBC With Differential/Platelet (564429) 07/08/2023 *Iron and TIBC (245909) 07/08/2023 *Vitamin D, 25-Hydroxy (759011) 07/08/20 23 Hemoglobin A1c (311211) 07/08/2023 *C-Reactive Protein, Cardiac (271856) *Lipid Panel (153182) 07/08/2023 Basic Metabolic Panel (8) (399726) 07/08 Vitamin B12 and Folate (632660) 07/08/20 23 *Ferritin, Serum (582112) 07/08/2023 TSH reflex to T4F 07/08/2023 *PSA, Serum (226329) 06/07/2024 *Vitamin D, 25-Hydroxy (422201) 06/07/20 24 *Hemogloblin A1c w/ eAG Est (723769) *Vitamin B12 (985148) 06/07/2024 *Lipid Panel (275032) 06/07/2024 *Vitamin D, 25-Hydroxy (441694) 09/24/19 25 *Vitamin B12 (624886) 09/24/2024 Next Appt Details Provider Name:Ronald Coppola, 01/28/2025 08:00:00 AM, [address], [place], [address], Provider Name:Ronald Coppola, 02/03/2025 10:00:00 AM, [address], [place], [address], Insurance Providers Payer Name Payer Address Payer Phone Subscriber Number Group Number Insured Name Patient Relationship to Insured Coverage Start Date Coverage End Date [facility] [address] [place] [address] [id number] Preston Nuñez Self - patient is the insured 4 [facility] [address] [place] [address] [id number] Preston Nuñez Self - patient is the insured 8 8 [facility] [address] [place] [address] [id number] Preston Nuñez Self - patient is the insured 7 4 Medications Administered Medication Instructions Date of Administration Dosage Notes Ketorolac Tromethamine 04/14/2024 2 mL Medical (General) History Medical History History ICD Code Asthma Seasonal allergies Obesity Diabetes Migraine headaches Surgical History Surgery Date(Month/Year) Colonoscopy 2021 Gastric bypass surgery (December 2022).
== END 2025-01-04 08:53 | disposition home or self-care (01) ==
LOC: HO.HBS 08:23
PROVIDERS: PCP Internal Medicine Cardiovascular Disease; Visit Provider Physician Assistant Surgical
DX: Z98.890 Other specified postprocedural states (principal)
CPT/HCPCS: 99024

== ENCOUNTER 2025-01-10 08:11 | Outpatient (AMB) | payer OTHER, BC, SELFPAY ==
--- OUTSIDE RECORDS SUMMARY | 2025-01-10 08:17 | XMS_ITS | Patient Health Record ---
Author Organization [facility] Address [address] [place] [address] Care Team Providers Care System Sales Consultant Name Role Phone CoppolaRonald Primary Care Provider Russell Garduno Unavailable [phone] Allergies No Known Allergies Results Component Value Reference Range Notes *Vitamin D, 25-Hydroxy (0819 50) Reviewed date:05/10/2024 02:15:32 PM Interpretation: Performing Lab:[facility], [facility] [place], [place] [id number], Phone - [phone], Director - Judie Notes/Report: Vitamin D, 25-Hydroxy 36.0 30.0-100.0 ng/mL Vitamin D deficiency has been defined by the [place] of [employer] and an Endocrine Society practice guideline as a level of serum 25-OH vitamin D less than 20 ng/mL (1,2). The Endocrine Society went on to further define vitamin D insufficiency as a level between 21 and 29 ng/mL (2). 1. IOM ([place] of [employer]). 2010. Dietary reference intakes for calcium and D. [place]: The National Academies Press. 2. Preet MF, Munira NC, Angelika PATRICIO, et al. Evaluation, treatment, and prevention of vitamin D deficiency: an Endocrine Society clinical practice guideline. JCEM. 2010; 96(7):1911-30. *Hemogloblin A1c w/ eAG Est (414095) Reviewed date:05/10/2024 02:15:32 PM Interpretation: Performing Lab:[facility] [address] [id number], Phone - [phone], Director - [facility] Notes/Report: Hemoglobin A1c 5.5 4.8-5.6 % . Prediabetes: 5.7 - 6.4 Diabetes: >6.4 Glycemic control for adults with diabetes: <7.0 Estim. Avg Glu (eAG) 111 *Vitamin B12 (998465) Reviewed date:05/10/2024 02:15:32 PM Interpretation: Performing Lab:[address] [id number], Phone - [phone], Director - [facility] Notes/Report: Vitamin B12 477 095-5824 pg/mL *Lipid Panel (967041) Reviewed date:05/10/2024 02:15:32 PM Interpretation: Performing Lab:[address] [id number], Phone - [phone], Director - [facility] Notes/Report: Cholesterol, Total 148 100-199 mg/dL Triglycerides 62 0-149 mg/dL HDL Cholesterol 46 >39 mg/dL VLDL Cholesterol Boby 13 5-40 mg/dL LDL Chol Calc (NIH) 89 0-99 mg/dL *PSA, Serum (035192) (Not ye t reviewed by provider) Interpretation: Performing Lab:[address] [id number], Phone - [phone], Director - [facility] Notes/Report: Prostate Specific Ag 0.9 0.0-4.0 ng/mL Zahida ECLIA methodology. . According to the [place] [employer], Serum PSA should decrease and [...] (Not yet reviewed by provider) Interpretation: Performing Lab:[address] [id number], Phone - [phone], Director - Judie Notes/Report: Vitamin D, 25-Hydroxy 33.0 30.0-100.0 ng/mL Vitamin D deficiency has been defined by the [place] [employer] and an Endocrine Society practice guideline as a level of serum 25-OH vitamin D less than 20 ng/mL (1,2). The Endocrine Society went on to further define vitamin D insufficiency as a level between 21 and 29 ng/mL (2). 1. IOM ([place] [employer]). 2010. Dietary reference intakes for calcium and D. [place]: The National Academies Press. 2. Preet MF, Munira DAVEY, Angelika PATRICIO, et al. Evaluation, treatment, and prevention of vitamin D deficiency: an Endocrine Society clinical practice guideline. JCEM. 2010; 96(7):1911-30. *Hemogloblin A1c w/ eAG Est (270599) (Not yet reviewed by provider) Interpretation: Performing [facility] [address] [place], [place] [id number], Phone - [phone], Director - Judie Notes/Report: Hemoglobin A1c 5.4 4.8-5.6 % . Prediabetes: 5.7 - 6.4 Diabetes: >6.4 Glycemic control for adults with diabetes: <7.0 Estim. Avg Glu (eAG) 108 *Vitamin B12 (276387) (Not y et reviewed by provider) Interpretation: Performing Lab:[facility], [facility] [address] [place], [place] [id number], Phone - [phone], Director - Judie Notes/Report: Vitamin B12 296 109-6845 pg/mL *Lipid Panel (385941) (Not y et reviewed by provider) Interpretation: Performing Lab:[facility], [facility] [place] [id number], Phone - [phone], Director - Judie Notes/Report: Cholesterol, Total 178 100-199 mg/dL Triglycerides 52 0-149 mg/dL HDL Cholesterol 47 >39 mg/dL VLDL Cholesterol Boby 10 5-40 mg/dL LDL Chol Calc ([facility]) 121 0-99 mg/dL *Urinalysis, Routine Urinaly sis, by dip stick or tablet reagent Reviewed date:10/20/2024 09:51:16 AM Interpretation: Performing Lab: Notes/Report: Leukocytes Neg Urine-Color Yellow Appearance Cloudy Specific [place] 1.025 pH 6.0 Glucose Neg Protein 0.14 Occult Blood Neg Bilirubin 1+ Urobilinogen,Semi-Qn 3.5 Nitrite, Urine Neg Ketones Neg *Vitamin D, 25-Hydroxy (0819 50) (Not yet reviewed by provider) Interpretation: Performing Lab:[facility] [address] [id number], Phone - [phone], Director - MDYeison Notes/Report: Vitamin D, 25-Hydroxy 36.0 30.0-100.0 ng/mL Vitamin D deficiency has been defined by the [place] [employer] and an Endocrine Society practice guideline as a level of serum 25-OH vitamin D less than 20 ng/mL (1,2). The Endocrine Society went on to further define vitamin D insufficiency as a level between 21 and 29 ng/mL (2). 1. IOM ([place] of [employer]). 2010. Dietary reference intakes for calcium and D. [place]: The National Academies Press. 2. Preet MF, [place], Angelika PATRICIO, et al. Evaluation, treatment, and prevention of vitamin D deficiency: an Endocrine Society clinical practice guideline. JCEM. 2010; 96(7):1911-30. *Vitamin B12 (036256) (Not y et reviewed by provider) Interpretation: Performing [facility], [address] [place] [id number], Phone - [phone], Director - Judie Notes/Report: Vitamin B12 863 949-0970 pg/mL *PSA, Serum (605756) Reviewed date:09/28/2024 03:26:16 PM Interpretation: Performing Lab: Notes/Report: Prostate Specific Ag 1.0 0.0-4.0 ng/mL [facility] (521955) Reviewed date:09/28/2024 03:26:16 PM Interpretation: Performing Lab: [...] Boby 13 5-40 mg/dL LDL Chol Calc ([facility]) 124 0-99 mg/dL T. Chol/HDL Ratio [...] Status Risk Notes Problem Vitamin B deficiency (75792620) Deficiency of other specified B group vitamins (E53.8) Active confirmed Problem Obesity (725626360) Obesity, unspecified (E66.9) Active confirmed Problem History of bariatric surgical procedure (476863896) Bariatric surgery status (Z98.84) Active confirmed Problem 432241925 Dyslipidemia (E78.5) Active confirmed Problem Asthma (169683379) Asthma (J45.909) Active confirmed Problem 94819197 Vitamin D deficiency (E55.9) Active confirmed Problem 874799654 Morbid obesity (E66.01) Active confirmed Problem 14987849 Migraine without status migrainosus, not intractable, unspecified migraine type (G43.909) Active confirmed Problem 99690896 Hypogonadism mal e (E29.1) Active confirmed Problem 939063269 Mild persistent asthma without complication (J45.30) Active confirmed Problem 791614670 Other elevated white blood cell (WBC) count (D72.828) Active confirmed Problem 51020442 Lymphocytosis (D72.820) Active confirmed Problem 478625799 Obesity (BMI 30-39.9) (E66.9) Active confirmed Problem 547225273 House dust mite allergy (Z91.09) Active confirmed Problem 239100883 Type 2 diabetes mellitus without complication, without long-term current use of insulin (E11.9) Active confirmed Problem 94892844 Right bundle branch block (RBBB) (I45.10) Active confirmed Problem 851418065 Mild intermitten t asthma, unspecified whether complicated (J45.20) Active confirmed Problem 223621408 Seasonal allergi c rhinitis, unspecified trigger (J30.2) Active confirmed Problem Hepatic fibrosis (disorder) (89390101) Hepatic fibrosis, unspecified (K74.00) Active confirmed Vital [...] 12/09/2024 Encounters Encounter Location Date Provider Diagnosis [place] [address] [address] 03/18/2024 Ronald Coppola B12 deficiency E53.8 ; Dyslipidemia E78.5 ; Vitamin D deficiency E55.9 and Type 2 diabetes mellitus without complication, without long-term current use of insulin E11.9 [place] [address] [address] 03/25/2024 Ronald Coppola Dyslipidemia E78.5 ; Vitamin D deficiency E55.9 ; Type 2 diabetes mellitus without complication, without long-term current use of insulin E11.9 ; B12 deficiency E53.8 and Screening for prostate cancer Z12.5 [place] [address] [address] 04/14/2024 Russell Garduno Migraine without sta tus migrainosus, not intractable, unspecified migraine type G43.909 [place] [address] [address] 06/07/2024 Russell Garduno Type 2 diabetes madan itus without complication, without long-term current use of insulin E11.9 ; Vitamin D deficiency E55.9 ; Dyslipidemia E78.5 ; B12 deficiency E53.8 and Screening for prostate cancer Z12.5 [place] [address] [address] 06/16/2024 Ronald Coppoal Dyslipidemia E78.5 ; Vitamin D deficiency E55.9 ; Type 2 diabetes mellitus without complication, without long-term current use of insulin E11.9 ; B12 deficiency E53.8 and Screening for prostate cancer Z12.5 [place] [address] [address] 08/17/2024 Ronald Coppola Painful urination R3 0.9 [place] [address] [place] [address] 09/24/2024 Russell Laureen B12 deficiency E53.8 ; Vitamin D deficiency E55.9 and Encounter for screening Z13.9 [place] [address] [address] 09/30/2024 Ronald Coppola Dyslipidemia E78.5 ; Vitamin D deficiency E55.9 ; Type 2 diabetes mellitus without complication, without long-term current use of insulin E11.9 ; B12 deficiency E53.8 and Screening for prostate cancer Z12.5 [place] [address] [address] 11/16/2024 Ronald Coppola Sports physical Z02. 5 and Right bundle branch block (RBBB) I45.10 [place] [address] [address] 12/09/2024 Ronald Coppola Status post panniculectomy Z98.890 and Administrative encounter Z02.[address] [address] 03/02/2024 Ronald Ocppola Medication refill Z7 6.[address] [address] 12/07/2024 Ronald Coppola Assessments Encounter Date Diagnosis [...] RBBB. States that he was referred to [employer] and reprots of having multitudes of [...] Test Name Order Date Vitamin A, Serum (789791) 07/08/2023 *Insulin (600072) 07/08/2023 *CBC With Differential/Platelet (106191) 07/08/2023 *Iron and TIBC (582306) 07/08/2023 *Vitamin D, 25-Hydroxy (817156) 07/08/20 23 Hemoglobin A1c (207963) 07/08/2023 *C-Reactive Protein, Cardiac (419001) *Lipid Panel (735904) 07/08/2023 Basic Metabolic Panel (8) (418008) 07/08 Vitamin B12 and Folate (578135) 07/08/20 23 *Ferritin, Serum (618755) 07/08/2023 TSH reflex to T4F 07/08/2023 *PSA, Serum (557685) 06/07/2024 *Vitamin D, 25-Hydroxy (255831) 06/07/20 24 *Hemogloblin A1c w/ eAG Est (583140) *Vitamin B12 (701135) 06/07/2024 *Lipid Panel (701390) 06/07/2024 *Vitamin D, 25-Hydroxy (004074) 09/24/19 25 *Vitamin B12 (725227) 09/24/2024 Next Appt Details Provider Name:Ronald Coppola, 01/28/2025 08:00:00 AM, [address], [place], [address], Provider Name:Ronald Coppola, 02/03/2025 10:00:00 AM, [address], [place], [address], Insurance Providers Payer Name Payer Address Payer Phone Subscriber Number Group Number Insured Name Patient Relationship to Insured Coverage Start Date Coverage End Date [facility] [address] [place] [address] [id number] Preston Nuñez Self - patient is the insured [address] [facility] [address] [place] [address] [id number] Preston Nuñez Self - patient is the insured [address] [facility] [address] [place] [address] [id number] Preston Nuñez Self - patient is the insured 7 4 Medications Administered Medication Instructions Date of Administration Dosage Notes Ketorolac Tromethamine 04/14/2024 2 mL Medical (General) History Medical History History ICD Code Asthma Seasonal allergies Obesity Diabetes Migraine headaches Surgical History Surgery Date(Month/Year) Colonoscopy 2021 Gastric bypass surgery (December 2022).
[2025-01-10 08:25] VITALS: BP 120/73; PULSE 56; TEMP 37; O2SAT 99
--- NOTE | 2025-01-10 08:25 | MHC.OFFVISWM ---
VS Expanded 01/10/25 08:25 BP 120/73 Blood Pressure Location Rt brachial Blood Pressure Position Sitting Pulse 56 Pulse Source Pulse Oximeter Temp 98.6 F Temperature Source Temporal Artery Scan Pulse Oximetry 99 Oxygen Delivery Method Room Air Intake Visit Reasons: (OV) s/p Panniculectomy 12/14/24 Allergies No Known Allergies Allergy (Verified 01/10/25 08:26) HPI Comments Details: Patient is a pleasant 49-year-old male who returns to the office today in follow-up. He is status post panniculectomy on 12/14/2024. He reports approximately 10 mL of serous fluid from the collection bulb over the last 3 days. He continues antibiotics and following meal plan as directed by Dr. Domínguez. [facility] Medical History Seasonal allergies Postgastrectomy malabsorption Prediabetes GERD (gastroesophageal reflux disease) Sleep apnea Asthma Morbid obesity Surgical History (Updated 12/27/24 @ 08:43 by Paige Pedro CMA) S/P panniculectomy S/P laparoscopic sleeve gastrectomy (12/2022) History of esophagogastroduodenoscopy (EGD) H/O colonoscopy Family History Mother HTN (hypertension) Father HTN (hypertension) Diabetes Son No problems noted. Son No problems noted. Social History Household Members: Family Housing: Apartment Are you a primary critical care transport nurse to a significant other at home: No Do you presently have visiting nurse or other home services: No Alcohol intake: never Patient Tobacco Use Status: Never used Tobacco Advance Directives Date on File: 11/04/22 service: No Current occupational status: employed Physical Exam Skin Other: Clean, dry, intact. Umbilicus is viable. No evidence of dehiscence or infection Assessment & Plan Assessment & Plan (1) S/P panniculectomy: Code(s): Z98.890 - Other specified postprocedural states Category: Surgical Plan: Patient overall is doing very well. He has had scant drainage from the collection bulb. This was removed today without incident. He will continue antibiotics for 1 more week. May walk around the house. He was told to keep the drain site area clean, dry, covered for another 48 hours and then he may remove the drain and shower. We will have him follow-up in the office in approximately 2 weeks.
--- NOTE | 2025-01-10 08:25 | MHC.OFFVISWM ---
VS Expanded 01/10/25 08:25 BP 120/73 Blood Pressure Location Rt brachial Blood Pressure Position Sitting Pulse 56 Pulse Source Pulse Oximeter Temp 98.6 F Temperature Source Temporal Artery Scan Pulse Oximetry 99 Oxygen Delivery Method Room Air Intake Visit Reasons: (OV) s/p Panniculectomy 12/14/24 Allergies No Known Allergies Allergy (Verified 01/10/25 08:26) PFSH Medical History Seasonal allergies Postgastrectomy malabsorption Prediabetes GERD (gastroesophageal reflux disease) Sleep apnea Asthma Morbid obesity Surgical History S/P panniculectomy S/P laparoscopic sleeve gastrectomy (12/2022) History of esophagogastroduodenoscopy (EGD) H/O colonoscopy Family History Mother HTN (hypertension) Father HTN (hypertension) Diabetes Son No problems noted. Son No problems noted. Social History Household Members: Family Housing: Apartment Are you a primary career resource specialist to a significant other at home: No Do you presently have visiting nurse or other home services: No Alcohol intake: never Patient Tobacco Use Status: Never used Tobacco Advance Directives Date on File: 11/04/22 service: No Current occupational status: employed
== END 2025-01-10 08:42 | disposition home or self-care (01) ==
LOC: HO.HBS 08:12
PROVIDERS: PCP Internal Medicine Cardiovascular Disease; Visit Provider Physician Assistant Surgical
DX: Z98.890 Other specified postprocedural states (principal)
CPT/HCPCS: 99024

== ENCOUNTER → 2025-01-10 08:11 | Outpatient (BNVA) | payer OTHER, BC, SELFPAY | PROVIDERS: PCP Internal Medicine Cardiovascular Disease; Visit Provider Physician Assistant Surgical ==

== ENCOUNTER 2025-01-26 10:08 | Outpatient (AMB) | payer OTHER, BC, SELFPAY ==
--- NOTE | 2025-01-26 10:25 | MHC.OFFVISWM ---
VS Expanded 01/26/25 10:33 BP 128/73 Blood Pressure Location Rt brachial Blood Pressure Position Sitting Pulse 57 Pulse Source Pulse Oximeter Temp 97.5 F Temperature Source Temporal Artery Scan Pulse Oximetry 99 Oxygen Delivery Method Room Air Height 5 ft 7 in Weight 172 lb 3.2 oz BMI 27.0 Body Fat % 20.2 Body Fat Mass 34.8 Fat Free Mass 137.4 Visceral Fat Rating 10.0 Body Water % 57.5 Body Water Mass 99.0 Muscle Mass/Score 130.6 Basal Metabolic Rate/Score 1,794 Intake Visit Reasons: (OV) s/p Panniculectomy 12/14/24 Allergies No Known Allergies Allergy (Verified 01/26/25 10:28) Medication List - Last Reconciled 01/26/25 by BERYL Ashraf albuterol sulfate 0.63 mg inhalation QID PRN ascorbate calcium (vitamin C) 500 mg PO DAILY budesonide (Pulmicort) 0.25 mg inhalation BID PRN calcium carbonate 600 mg PO DAILY calcium citrate 200 mg PO BID cetirizine (All Day Allergy (cetirizine)) 10 mg PO DAILY PRN cholecalciferol (vitamin D3) 125 mcg PO DAILY docusate sodium (Colace) 100 mg PO DAILY [fusion MVI PO DAILY] multivitamin 1 tab PO DAILY ondansetron 4 mg PO Q12H triamcinolone acetonide 0.1% 1 appl topical BID vitamin [id number] acid 2,500-400 mcg 1 tab PO DAILY HPI Comments Details: Patient is a pleasant 49-year-old male who returns to the office today in follow-up. He is status post panniculectomy on 12/14/2024. Drain was removed at last visit 2w ago, no fevers at home, abx completed. He is following meal plan as directed by Dr. Domínguez. Wants to know if he can walk for activity. Reports feeling some pressure at center of incision when he stands up. [facility] Medical History Seasonal allergies Postgastrectomy malabsorption Prediabetes GERD (gastroesophageal reflux disease) Sleep apnea Asthma Morbid obesity Surgical History S/P panniculectomy S/P laparoscopic sleeve gastrectomy (12/2022) History of esophagogastroduodenoscopy (EGD) H/O colonoscopy Family History Mother HTN (hypertension) Father HTN (hypertension) Diabetes Son No problems noted. Son No problems noted. Social History Household Members: Family Housing: Apartment Are you a primary career discovery teacher to a significant other at home: No Do you presently have visiting nurse or other home services: No 75 years or older and lives alone: No Alcohol intake: never Patient Tobacco Use Status: Never used Tobacco Advance Directives Date on File: 11/04/22 service: No Current occupational status: employed Physical Exam Vital Signs: Last Vital Signs Temp 97.5 F 01/26/25 10:33 Pulse 57 01/26/25 10:33 BP 128/73 01/26/25 10:33 Pulse Ox 99 01/26/25 10:33 Oxygen Delivery Method Room Air 01/26/25 10:33 BMI result Body Mass Index 27.0 Const General: cooperative, comfortable and no acute distress Orientation/consciousness: patient oriented x3 GI Other: soft, nontender, nondistended, no hernia, no masses umbilicus well healed, some steri strips remain intact, center of incision with pinpoint area of scab, no erythema, no drainage, no palpable collection at center of incision Neuro General: patient oriented x3 Assessment & Plan Assessment & Plan (1) S/P laparoscopic sleeve gastrectomy: Onset Date: 12/2022 Code(s): Z98.84 - Bariatric surgery status Category: Surgical (2) Overweight (BMI 25.0-29.9): Code(s): E66.3 - Overweight Category: Medical (3) S/P panniculectomy: Code(s): Z98.890 - Other specified postprocedural states Category: Surgical Plan Doing well 6w s/p panniculectomy. May walk. Binder with activity, does not need to wear at rest. No heavy lifting. Pt requests additional work note/FMLA to keep him out of work until March due to his job which requires a lot of heavy lifting; he will send us paperwork to be completed. May fly. RTC 2w.
[2025-01-26 10:33] VITALS: BP 128/73; PULSE 57; TEMP 36.4; O2SAT 99; BMI 27.0
--- OUTSIDE RECORDS SUMMARY | 2025-01-26 11:24 | XMS_ITS | Patient Health Record ---
Author Organization [facility] Address [address] [place] [address] Care Team Providers Care Order To Delivery Supervisor Name Role Phone CoppolaRonald Primary Care Provider [phone] Russell Garduno Unavailable [phone] Allergies No Known Allergies Results Component Value Reference Range Notes *Vitamin D, 25-Hydroxy (0819 50) Reviewed date:05/10/2024 02:15:32 PM Interpretation: Performing Lab:[facility] [place], [facility] [place], [place] [id number], Phone - [phone], Director - Judie Notes/Report: Vitamin D, 25-Hydroxy 36.0 30.0-100.0 ng/mL Vitamin D deficiency has been defined by the [place] [employer] and an Endocrine Society practice guideline as a level of serum 25-OH vitamin D less than 20 ng/mL (1,2). The Endocrine Society went on to further define vitamin D insufficiency as a level between 21 and 29 ng/mL (2). 1. IOM ([employer] [employer]). 2010. Dietary reference intakes for calcium and D. [place]: The National Academies Press. 2. Preet MF, Munira NC, Angelika PATRICIO, et al. Evaluation, treatment, and prevention of vitamin D deficiency: an Endocrine Society clinical practice guideline. JCEM. 2010; 96(7):1911-30. *Hemogloblin A1c w/ eAG Est (970720) Reviewed date:05/10/2024 02:15:32 PM Interpretation: Performing Lab:[facility] [address] [id number], Phone - [phone], Director - [facility] Notes/Report: Hemoglobin A1c 5.5 4.8-5.6 % . Prediabetes: 5.7 - 6.4 Diabetes: >6.4 Glycemic control for adults with diabetes: <7.0 Estim. Avg Glu (eAG) 111 *Vitamin B12 (738286) Reviewed date:05/10/2024 02:15:32 PM Interpretation: Performing Lab:[address] [id number], Phone - [phone], Director - [facility] Notes/Report: Vitamin B12 957 722-7553 pg/mL *Lipid Panel (121848) Reviewed date:05/10/2024 02:15:32 PM Interpretation: Performing Lab:[address] [id number], Phone - [phone], Director - [facility] Notes/Report: Cholesterol, Total 148 100-199 mg/dL Triglycerides 62 0-149 mg/dL HDL Cholesterol 46 >39 mg/dL VLDL Cholesterol Boby 13 5-40 mg/dL LDL Chol Calc (NIH) 89 0-99 mg/dL *PSA, Serum (925057) (Not ye t reviewed by provider) Interpretation: Performing Lab:[address] [id number], Phone - [phone], Director - [facility] Notes/Report: Prostate Specific Ag 0.9 0.0-4.0 ng/mL Zahida ECLIA methodology. . According to the [place] [employer], Serum PSA should decrease and [...] (Not yet reviewed by provider) Interpretation: Performing Lab:[address] [id number], Phone - [phone], Director - Judie Notes/Report: Vitamin D, 25-Hydroxy 33.0 30.0-100.0 ng/mL Vitamin D deficiency has been defined by the [employer] and an Endocrine Society practice guideline as a level of serum 25-OH vitamin D less than 20 ng/mL (1,2). The Endocrine Society went on to further define vitamin D insufficiency as a level between 21 and 29 ng/mL (2). 1. IOM ([employer]). 2010. Dietary reference intakes for calcium and D. [place]: The National Academies Press. 2. Preet MF, Munira DAVEY, Angelika PATRICIO, et al. Evaluation, treatment, and prevention of vitamin D deficiency: an Endocrine Society clinical practice guideline. JCEM. 2010; 96(7):1911-30. *Hemogloblin A1c w/ eAG Est (764753) (Not yet reviewed by provider) Interpretation: Performing Lab:[facility] [address] [place], [place] [id number], Phone - [phone], Director - Judie Notes/Report: Hemoglobin A1c 5.4 4.8-5.6 % . Prediabetes: 5.7 - 6.4 Diabetes: >6.4 Glycemic control for adults with diabetes: <7.0 Estim. Avg Glu (eAG) 108 *Vitamin B12 (616110) (Not y et reviewed by provider) Interpretation: Performing Lab:[facility], [facility] [address] [place], [place] [id number], Phone - [phone], Director - Judie Notes/Report: Vitamin B12 517 729-2137 pg/mL *Lipid Panel (136450) (Not y et reviewed by provider) Interpretation: Performing Lab:[facility] [place], [facility] [address] [place], [place] [id number], Phone - [phone], Director - Judie Notes/Report: Cholesterol, Total 178 100-199 mg/dL Triglycerides 52 0-149 mg/dL HDL Cholesterol 47 >39 mg/dL VLDL Cholesterol Boby 10 5-40 mg/dL LDL Chol Calc ([facility]) 121 0-99 mg/dL *Urinalysis, Routine Urinaly sis, by dip stick or tablet reagent Reviewed date:10/20/2024 09:51:16 AM Interpretation: Performing Lab: Notes/Report: Leukocytes Neg Urine-Color Yellow Appearance Cloudy Specific [place] 1.025 pH 6.0 Glucose Neg Protein 0.14 Occult Blood Neg Bilirubin 1+ Urobilinogen,Semi-Qn 3.5 Nitrite, Urine Neg Ketones Neg *Vitamin D, 25-Hydroxy (0819 50) (Not yet reviewed by provider) Interpretation: Performing Lab:[facility] [address] [id number], Phone - [phone], Director - MDYeison Notes/Report: Vitamin D, 25-Hydroxy 36.0 30.0-100.0 ng/mL Vitamin D deficiency has been defined by the [employer] and an Endocrine Society practice guideline as a level of serum 25-OH vitamin D less than 20 ng/mL (1,2). The Endocrine Society went on to further define vitamin D insufficiency as a level between 21 and 29 ng/mL (2). 1. IOM ([employer]). 2010. Dietary reference intakes for calcium and D. [place]: The National Academies Press. 2. Preet MF, Munira NC, Angelika PATRICIO, et al. Evaluation, treatment, and prevention of vitamin D deficiency: an Endocrine Society clinical practice guideline. JCEM. 2010; 96(7):1911-30. *Vitamin B12 (777879) (Not y et reviewed by provider) Interpretation: Performing [facility] [address] [place] [id number], Phone - [phone], Director - Judie Notes/Report: Vitamin B12 587 912-3213 pg/mL *PSA, Serum (264076) Reviewed date:09/28/2024 03:26:16 PM Interpretation: Performing Lab: Notes/Report: Prostate Specific Ag 1.0 0.0-4.0 ng/mL [facility] (872353) Reviewed date:09/28/2024 03:26:16 PM Interpretation: Performing Lab: [...] Boby 13 5-40 mg/dL LDL Chol Calc ([facility]) 124 0-99 mg/dL T. Chol/HDL Ratio 3.8 [...] Status Risk Notes Problem Vitamin B deficiency (63671617) Deficiency of other specified B group vitamins (E53.8) Active confirmed Problem Obesity (485589574) Obesity, unspecified (E66.9) Active confirmed Problem History of bariatric surgical procedure (506040255) Bariatric surgery status (Z98.84) Active confirmed Problem 513119166 Dyslipidemia (E78.5) Active confirmed Problem Asthma (825330591) Asthma (J45.909) Active confirmed Problem 59759550 Vitamin D deficiency (E55.9) Active confirmed Problem 565188530 Morbid obesity (E66.01) Active confirmed Problem 47004717 Migraine without status migrainosus, not intractable, unspecified migraine type (G43.909) Active confirmed Problem 16674733 Hypogonadism mal e (E29.1) Active confirmed Problem 698751099 Mild persistent asthma without complication (J45.30) Active confirmed Problem 188207798 Other elevated white blood cell (WBC) count (D72.828) Active confirmed Problem 93770728 Lymphocytosis (D72.820) Active confirmed Problem 574231023 Obesity (BMI 30-39.9) (E66.9) Active confirmed Problem 759035453 House dust mite allergy (Z91.09) Active confirmed Problem 050365578 Type 2 diabetes mellitus without complication, without long-term current use of insulin (E11.9) Active confirmed Problem 94788275 Right bundle branch block (RBBB) (I45.10) Active confirmed Problem 258530796 Mild intermitten t asthma, unspecified whether complicated (J45.20) Active confirmed Problem 073276975 Seasonal allergi c rhinitis, unspecified trigger (J30.2) Active confirmed Problem Hepatic fibrosis (disorder) (08431241) Hepatic fibrosis, unspecified (K74.00) Active confirmed Vital [...] 12/09/2024 Encounters Encounter Location Date Provider Diagnosis [place] [address] [address] 03/18/2024 Ronald Coppola B12 deficiency E53.8 ; Dyslipidemia E78.5 ; Vitamin D deficiency E55.9 and Type 2 diabetes mellitus without complication, without long-term current use of insulin E11.9 [place] [address] [address] 03/25/2024 Ronald Coppola Dyslipidemia E78.5 ; Vitamin D deficiency E55.9 ; Type 2 diabetes mellitus without complication, without long-term current use of insulin E11.9 ; B12 deficiency E53.8 and Screening for prostate cancer Z12.5 [place] [address] [address] 04/14/2024 Russell Garduno Migraine without sta tus migrainosus, not intractable, unspecified migraine type G43.909 [place] [address] [address] 06/07/2024 Russell Garduno Type 2 diabetes madan itus without complication, without long-term current use of insulin E11.9 ; Vitamin D deficiency E55.9 ; Dyslipidemia E78.5 ; B12 deficiency E53.8 and Screening for prostate cancer Z12.5 [place] [address] [address] 06/16/2024 Ornald Coppola Dyslipidemia E78.5 ; Vitamin D deficiency E55.9 ; Type 2 diabetes mellitus without complication, without long-term current use of insulin E11.9 ; B12 deficiency E53.8 and Screening for prostate cancer Z12.5 [place] [address] [address] 08/17/2024 Ronald Coppola Painful urination R3 0.9 [place] [address] [place] [id number] 09/24/2024 Russell Laureen B12 deficiency E53.8 ; Vitamin D deficiency E55.9 and Encounter for screening Z13.9 [place] [address] [address] 09/30/2024 Ronald Coppola Dyslipidemia E78.5 ; Vitamin D deficiency E55.9 ; Type 2 diabetes mellitus without complication, without long-term current use of insulin E11.9 ; B12 deficiency E53.8 and Screening for prostate cancer Z12.5 [place] [address] [address] 11/16/2024 Ronald Coppola Sports physical Z02. 5 and Right bundle branch block (RBBB) I45.10 [place] [address] [address] 12/09/2024 Ronald Coppola Status post panniculectomy Z98.890 and Administrative encounter Z02.[address] [address] 03/02/2024 Ronald Coppola Medication refill Z7 6.[address] [address] 12/07/2024 Ronald Coppola Assessments Encounter Date Diagnosis (ICD Code) Assessment Notes Treatment Notes Treatment Clinical Notes Section Notes 03/18/2024 B12 deficiency (ICD-10 - E53.8) 03/18/2024 Dyslipidemia (ICD-10 - E78.5) 03/25/2024 Dyslipidemia (ICD-10 - E78.5) LDL and HDL is at goal. Encouraged to continue healthy lifestyle. Recheck Lipids. 04/14/2024 Migraine without status migrainosus, not intractable, unspecified migraine type (ICD-10 - G43.909) REST, EXCUSE NOTE FROM WORK TILL 04/19/2024 WAS PROVIDED TO PT. INCREASE FLUID INTAKE KEEP HEADACHE DIARY F/U IN 1 WEEK. 06/07/2024 Type 2 diabetes mellitus without complication, without long-term current use of insulin (ICD-10 - E11.9) 06/07/2024 Vitamin D deficiency (ICD-10 - E55.9) 06/16/2024 Dyslipidemia (ICD-10 - E78.5) LDL is [...] RBBB. States that he was referred to [facility] Consultant and reprots of having multitudes of tests (including stress test) and all were benign. 12/09/2024 Status post panniculectomy (ICD-10 - Z98.890) 12/09/2024 Administrative encounter (ICD-10 - Z02.9) Letter written 03/02/2024 Medication refill (ICD-10 - Z76.0) 03/18/2024 [...] Test Name Order Date Vitamin A, Serum (205819) 07/08/2023 *Insulin (122272) 07/08/2023 *CBC With Differential/Platelet (835051) 07/08/2023 *Iron and TIBC (442536) 07/08/2023 *Vitamin D, 25-Hydroxy (009833) 07/08/20 23 Hemoglobin A1c (197971) 07/08/2023 *C-Reactive Protein, Cardiac (368002) *Lipid Panel (318653) 07/08/2023 Basic Metabolic Panel (8) (152659) 07/08 Vitamin B12 and Folate (581713) 07/08/20 23 *Ferritin, Serum (112300) 07/08/2023 TSH reflex to T4F 07/08/2023 *PSA, Serum (090125) 06/07/2024 *Vitamin D, 25-Hydroxy (324846) 06/07/20 24 *Hemogloblin A1c w/ eAG Est (336943) *Vitamin B12 (005890) 06/07/2024 *Lipid Panel (079592) 06/07/2024 *Vitamin D, 25-Hydroxy (706147) 09/24/19 25 *Vitamin B12 (581709) 09/24/2024 Next Appt Details Provider Name:Ronald Coppola, 01/28/2025 08:00:00 AM, [address], [place], [address], Provider Name:Ronald Coppola, 02/03/2025 10:00:00 AM, [address], [place], [address], Insurance Providers Payer Name Payer Address Payer Phone Subscriber Number Group Number Insured Name Patient Relationship to Insured Coverage Start Date Coverage End Date [employer] [facility] [address] [place] [address] [id number] Preston Nuñez Self - patient is the insured 4 [employer] [facility] [address] [place] [address] [id number] Preston Nuñez Self - patient is the insured 8 8 [employer] [facility] [address] [place] [address] [id number] Preston Nuñez Self - patient is the insured 7 4 Medications Administered Medication Instructions Date of Administration Dosage Notes Ketorolac Tromethamine 04/14/2024 2 mL Medical (General) History Medical History History ICD Code Asthma Seasonal allergies Obesity Diabetes Migraine headaches Surgical History Surgery Date(Month/Year) Colonoscopy 2021 Gastric bypass surgery (December 2022).
== END 2025-01-26 11:09 | disposition home or self-care (01) ==
LOC: HO.HBS 10:08
PROVIDERS: PCP Internal Medicine Cardiovascular Disease; Visit Provider Physician Assistant Surgical
DX: E66.3 Overweight (principal); Z68.27 Body mass index [BMI] 27.0-27.9, adult; Z98.84 Bariatric surgery status
CPT/HCPCS: 99024

== ENCOUNTER 2025-02-07 09:53 | Outpatient (AMB) | payer OTHER, BC, SELFPAY ==
--- NOTE | 2025-02-07 09:55 | A.OFFVIS_ITS ---
VS Expanded 02/07/25 10:08 BP 125/58 L Blood Pressure Location Rt brachial Blood Pressure Position Sitting Pulse 56 Pulse Source Pulse Oximeter Temp 97.9 F Temperature Source Temporal Artery Scan Pulse Oximetry 99 Oxygen Delivery Method Room Air Height 5 ft 7 in Weight 173 lb 9.6 oz BMI 27.2 Body Fat % 17.8 Body Fat Mass 30.8 Fat Free Mass 142.6 Visceral Fat Rating 4.0 Body Water % 58.4 Body Water Mass 101.4 Muscle Mass/Score 135.4 Basal Metabolic Rate/Score 1,856 Intake Visit Reasons: (OV) s/p Panniculectomy 12/14/24 Allergies No Known Allergies Allergy (Verified 02/07/25 10:04) HPI Comments Details: 49-year-old male returns to the office today in follow-up. He is status post panniculectomy performed on 12/14/2024. Weight today is 173.6 with a BMI of 27.2. He has not been following the meal plans exactly. He has been doing equate ready to drink shake 6 oz mixed with 2 oz of almond milk over approximately 15- 30 minutes time, 1 in the morning and 1 in the evening. He would have peanuts or almond between his shake and his meal at noon and then between his meal and his shake in the afternoon. Meal in the mid day is 7 forks of protein and 7 forks of vegetables. He denies any pain. [facility] Medical History Seasonal allergies Postgastrectomy malabsorption Prediabetes GERD (gastroesophageal reflux disease) Sleep apnea Asthma Morbid obesity Surgical History S/P panniculectomy S/P laparoscopic sleeve gastrectomy (12/2022) History of esophagogastroduodenoscopy (EGD) H/O colonoscopy Family History Mother HTN (hypertension) Father HTN (hypertension) Diabetes Son No problems noted. Son No problems noted. Social History Household Members: Family Housing: Apartment Are you a primary health care law specialist to a significant other at home: No Do you presently have visiting nurse or other home services: No 75 years or older and lives alone: No Alcohol intake: never Patient Tobacco Use Status: Never used Tobacco Advance Directives Date on File: 11/04/22 service: No Current occupational status: employed Physical Exam Skin Other: Well healed panniculectomy and umbilical incisions. Assessment & Plan Assessment & Plan (1) S/P panniculectomy: Code(s): Z98.890 - Other specified postprocedural states Category: Surgical Plan: Patient has been encouraged to follow the meal plans discussed with Dr. Domínguez. Additionally encouraged to text Dr. Domínguez to let him know what his weight is and what he has been doing for his meal plan to clarify what he should be doing. He will continue to wear his abdominal binder with any exercise or activity. Follow-up in the office in about 1 month
[2025-02-07 10:08] VITALS: BP 125/58; PULSE 56; TEMP 36.6; O2SAT 99; BMI 27.2
--- OUTSIDE RECORDS SUMMARY | 2025-02-07 10:26 | XMS_ITS | Patient Health Record ---
Author Organization [facility] Address [address] [place] [address] Care Team Providers Care Recruiting Coordinator Name Role Phone CoppolaRonald Primary Care Provider Russell Garduno Unavailable [phone] Allergies No Known Allergies Results Component Value Reference Range Notes *Vitamin D, 25-Hydroxy (0819 50) Reviewed date:05/10/2024 02:15:32 PM Interpretation: Performing Lab:[facility] [place], [facility] [place], [place] [id number], Phone - [phone], Director - Judie Notes/Report: Vitamin D, 25-Hydroxy 36.0 30.0-100.0 ng/mL Vitamin D deficiency has been defined by the [place] of [employer] and an Endocrine Society practice guideline as a level of serum 25-OH vitamin D less than 20 ng/mL (1,2). The Endocrine Society went on to further define vitamin D insufficiency as a level between 21 and 29 ng/mL (2). 1. IOM ([place] of Medicine). 2010. Dietary reference intakes for calcium and D. [place]: The National Academies Press. 2. Preet MF, Munira NC, Angelika PATRICIO, et al. Evaluation, treatment, and prevention of vitamin D deficiency: an Endocrine Society clinical practice guideline. JCEM. 2010; 96(7):1911-30. *Hemogloblin A1c w/ eAG Est (730085) Reviewed date:05/10/2024 02:15:32 PM Interpretation: Performing Lab:[facility] [address] [id number], Phone - [phone], Director - [facility] Notes/Report: Hemoglobin A1c 5.5 4.8-5.6 % . Prediabetes: 5.7 - 6.4 Diabetes: >6.4 Glycemic control for adults with diabetes: <7.0 Estim. Avg Glu (eAG) 111 *Vitamin B12 (122657) Reviewed date:05/10/2024 02:15:32 PM Interpretation: Performing Lab:[address] [id number], Phone - [phone], Director - [facility] Notes/Report: Vitamin B12 443 796-9833 pg/mL *Lipid Panel (413205) Reviewed date:05/10/2024 02:15:32 PM Interpretation: Performing Lab:[address] [id number], Phone - [phone], Director - [facility] Notes/Report: Cholesterol, Total 148 100-199 mg/dL Triglycerides 62 0-149 mg/dL HDL Cholesterol 46 >39 mg/dL VLDL Cholesterol Boby 13 5-40 mg/dL LDL Chol Calc (NIH) 89 0-99 mg/dL *PSA, Serum (192712) (Not ye t reviewed by provider) Interpretation: Performing Lab:[address] [id number], Phone - [phone], Director - [facility] Notes/Report: Prostate Specific Ag 0.9 0.0-4.0 ng/mL [...] (Not yet reviewed by provider) Interpretation: Performing Lab:[address] [id number], Phone - [phone], Director - Judie Notes/Report: Vitamin D, 25-Hydroxy 33.0 30.0-100.0 ng/mL Vitamin D deficiency has been defined by the [place] of [place] and an Endocrine Society practice guideline as a level of serum 25-OH vitamin D less than 20 ng/mL (1,2). The Endocrine Society went on to further define vitamin D insufficiency as a level between 21 and 29 ng/mL (2). 1. IOM ([place] of Medicine). 2010. Dietary reference intakes for calcium and D. [place]: The National Academies Press. 2. Preet MF, Munira DAVEY, Angelika PATRICIO, et al. Evaluation, treatment, and prevention of vitamin D deficiency: an Endocrine Society clinical practice guideline. JCEM. 2010; 96(7):1911-30. *Hemogloblin A1c w/ eAG Est (173259) (Not yet reviewed by provider) Interpretation: Performing Lab[facility] [address] [place], [place] [id number], Phone - [phone], Director - Judie Notes/Report: Hemoglobin A1c 5.4 4.8-5.6 % . Prediabetes: 5.7 - 6.4 Diabetes: >6.4 Glycemic control for adults with diabetes: <7.0 Estim. Avg Glu (eAG) 108 *Vitamin B12 (550534) (Not y et reviewed by provider) Interpretation: Performing Lab:[facility] [place], [facility] [address] [place], [place] [id number], Phone - [phone], Director - Judie Notes/Report: Vitamin B12 534 460-6454 pg/mL *Lipid Panel (409097) (Not y et reviewed by provider) Interpretation: Performing Lab:[facility] [place], [facility] [address] [place], [place] [id number], Phone - [phone], Director - Judie Notes/Report: Cholesterol, Total 178 100-199 mg/dL Triglycerides 52 0-149 mg/dL HDL Cholesterol 47 >39 mg/dL VLDL Cholesterol Boby 10 5-40 mg/dL LDL Chol Calc ([facility]) 121 0-99 mg/dL *Urinalysis, Routine Urinaly sis, by dip stick or tablet reagent Reviewed date:10/20/2024 09:51:16 AM Interpretation: Performing Lab: Notes/Report: Leukocytes Neg Urine-Color Yellow Appearance Cloudy Specific [place] 1.025 pH 6.0 Glucose Neg Protein 0.14 Occult Blood Neg Bilirubin 1+ Urobilinogen,Semi-Qn 3.5 Nitrite, Urine Neg Ketones Neg *Vitamin D, 25-Hydroxy (0819 50) (Not yet reviewed by provider) Interpretation: Performing Lab:[facility] [address] [id number], Phone - [phone], Director - MDYeison Notes/Report: Vitamin D, 25-Hydroxy 36.0 30.0-100.0 ng/mL Vitamin D deficiency has been defined by the [place] of [place] and an Endocrine Society practice guideline as a level of serum 25-OH vitamin D less than 20 ng/mL (1,2). The Endocrine Society went on to further define vitamin D insufficiency as a level between 21 and 29 ng/mL (2). 1. IOM ([place] of [place]). 2010. Dietary reference intakes for calcium and D. [place]: The National Academies Press. 2. Preet MF, [place] NC, Angelika PTARICIO, et al. Evaluation, treatment, and prevention of vitamin D deficiency: an Endocrine Society clinical practice guideline. JCEM. 2010; 96(7):1911-30. *Vitamin B12 (684157) (Not y et reviewed by provider) Interpretation: Performing Lab[facility], [address] [place] [id number], Phone - [phone], Director - Judie Notes/Report: Vitamin B12 199 870-5063 pg/mL *PSA, Serum (863003) Reviewed date:09/28/2024 03:26:16 PM Interpretation: Performing Lab: Notes/Report: Prostate Specific Ag 1.0 0.0-4.0 ng/mL [facility] (691637) Reviewed date:09/28/2024 03:26:16 PM Interpretation: Performing Lab: [...] Boby 13 5-40 mg/dL LDL Chol Calc ([facility]) 124 0-99 mg/dL T. Chol/HDL Ratio [...] Status Risk Notes Problem Vitamin B deficiency (88956655) Deficiency of other specified B group vitamins (E53.8) Active confirmed Problem Obesity (738093297) Obesity, unspecified (E66.9) Active confirmed Problem History of bariatric surgical procedure (191274554) Bariatric surgery status (Z98.84) Active confirmed Problem 574199906 Dyslipidemia (E78.5) Active confirmed Problem Asthma (550580940) Asthma (J45.909) Active confirmed Problem 68076262 Vitamin D deficiency (E55.9) Active confirmed Problem 174319067 Morbid obesity (E66.01) Active confirmed Problem 97739024 Migraine without status migrainosus, not intractable, unspecified migraine type (G43.909) Active confirmed Problem 79349254 Hypogonadism mal e (E29.1) Active confirmed Problem 237131977 Mild persistent asthma without complication (J45.30) Active confirmed Problem 529078427 Other elevated white blood cell (WBC) count (D72.828) Active confirmed Problem 72567541 Lymphocytosis (D72.820) Active confirmed Problem 943435728 Obesity (BMI 30-39.9) (E66.9) Active confirmed Problem 642860596 House dust mite allergy (Z91.09) Active confirmed Problem 350744958 Type 2 diabetes mellitus without complication, without long-term current use of insulin (E11.9) Active confirmed Problem 89956680 Right bundle branch block (RBBB) (I45.10) Active confirmed Problem 321530633 Mild intermitten t asthma, unspecified whether complicated (J45.20) Active confirmed Problem 244108235 Seasonal allergi c rhinitis, unspecified trigger (J30.2) Active confirmed Problem Hepatic fibrosis (disorder) (81866707) Hepatic fibrosis, unspecified (K74.00) Active confirmed Vital [...] 12/09/2024 Encounters Encounter Location Date Provider Diagnosis [place] [address] [address] 03/18/2024 Ronald Coppola B12 deficiency E53.8 ; Dyslipidemia E78.5 ; Vitamin D deficiency E55.9 and Type 2 diabetes mellitus without complication, without long-term current use of insulin E11.9 [place] [address] [address] 03/25/2024 Ronald Coppola Dyslipidemia E78.5 ; Vitamin D deficiency E55.9 ; Type 2 diabetes mellitus without complication, without long-term current use of insulin E11.9 ; B12 deficiency E53.8 and Screening for prostate cancer Z12.5 [place] [address] [address] 04/14/2024 Russell Garduno Migraine without sta tus migrainosus, not intractable, unspecified migraine type G43.909 [place] [address] [address] 06/07/2024 Russell Garduno Type 2 diabetes madan itus without complication, without long-term current use of insulin E11.9 ; Vitamin D deficiency E55.9 ; Dyslipidemia E78.5 ; B12 deficiency E53.8 and Screening for prostate cancer Z12.5 [place] [address] [address] 06/16/2024 Ronald Coppola Dyslipidemia E78.5 ; Vitamin D deficiency E55.9 ; Type 2 diabetes mellitus without complication, without long-term current use of insulin E11.9 ; B12 deficiency E53.8 and Screening for prostate cancer Z12.5 [place] [address] [address] 08/17/2024 Ronald Coppola Painful urination R3 0.9 [place] [address] [address] [place] [id number] 09/24/2024 Russell Laureen B12 deficiency E53.8 ; Vitamin D deficiency E55.9 and Encounter for screening Z13.9 [place] [address] [address] 09/30/2024 Ronald Coppola Dyslipidemia E78.5 ; Vitamin D deficiency E55.9 ; Type 2 diabetes mellitus without complication, without long-term current use of insulin E11.9 ; B12 deficiency E53.8 and Screening for prostate cancer Z12.5 [place] [address] [address] 11/16/2024 Ronald Coppola Sports physical Z02. 5 and Right bundle branch block (RBBB) I45.10 [place] [address] [address] 12/09/2024 Ronald Coppola Status post panniculectomy Z98.890 and Administrative encounter Z02.[address] [address] 03/02/2024 Ronald Coppola Medication refill Z7 6.[address] [address] 12/07/2024 Ronald Copploa Assessments Encounter Date Diagnosis (ICD Code) Assessment [...] RBBB. States that he was referred to [facility] and reprots of having multitudes of tests [...] Test Name Order Date Vitamin A, Serum (687667) 07/08/2023 *Insulin (254730) 07/08/2023 *CBC With Differential/Platelet (696464) 07/08/2023 *Iron and TIBC (243448) 07/08/2023 *Vitamin D, 25-Hydroxy (567528) 07/08/20 23 Hemoglobin A1c (894536) 07/08/2023 *C-Reactive Protein, Cardiac (940680) *Lipid Panel (893755) 07/08/2023 Basic Metabolic Panel (8) (945277) 07/08 Vitamin B12 and Folate (518453) 07/08/20 23 *Ferritin, Serum (048509) 07/08/2023 TSH reflex to T4F 07/08/2023 *PSA, Serum (712490) 06/07/2024 *Vitamin D, 25-Hydroxy (517399) 06/07/20 24 *Hemogloblin A1c w/ eAG Est (794414) *Vitamin B12 (223452) 06/07/2024 *Lipid Panel (340310) 06/07/2024 *Vitamin D, 25-Hydroxy (736678) 09/24/19 25 *Vitamin B12 (460940) 09/24/2024 Future Test Test Name Order Date *Vitamin D, 25-Hydroxy (521658) 01/29/20 25 *Hemogloblin A1c w/ eAG Est (367918) *Vitamin B12 (384954) 01/28/2025 *Lipid Panel (749786) 01/28/2025 Insurance Providers Payer Name Payer Address Payer Phone Subscriber Number Group Number Insured Name Patient Relationship to Insured Coverage Start Date Coverage End Date [facility] [address] [place] [address] [id number] Preston Nuñez Self - patient is the insured 4 [facility] [address] [place] [address] [id number] Preston Nuñez Self - patient is the insured 8 8 [facility] [address] [place] [address] [id number] Preston Nuñez Self - patient is the insured 7 4 Medications Administered Medication Instructions Date of Administration Dosage Notes Ketorolac Tromethamine 04/14/2024 2 mL Medical (General) History Medical History History ICD Code Asthma Seasonal allergies Obesity Diabetes Migraine headaches Surgical History Surgery Date(Month/Year) Colonoscopy 2021 Gastric bypass surgery (December 2022).
== END 2025-02-07 10:22 | disposition home or self-care (01) ==
LOC: HO.HBS 09:53
PROVIDERS: PCP Internal Medicine Cardiovascular Disease; Visit Provider Physician Assistant Surgical
DX: Z98.890 Other specified postprocedural states (principal)
CPT/HCPCS: 99024

== ENCOUNTER → 2025-02-09 20:30 | Outpatient (REF) | payer OTHER, BC, SELFPAY ==
--- OUTSIDE RECORDS SUMMARY | 2025-02-09 21:13 | XMS_ITS | Patient Health Record ---
Author Organization [facility] - So [facility] Address [address] [place] [address] Care Team Providers Care Battery Installer Name Role Phone Fernanda Cherry Unavailable [phone] Reason For Referral No Information Plan Of Treatment No Information Insurance Providers Payer Name Payer Address Payer Phone Subscriber Number Group Number Insured Name Patient Relationship to Insured Coverage Start Date Coverage End Date [facility] [address] [place] [id number] Preston Clarke Self - patient is the insured Medical (General) History Medical History History ICD Code Asthma Surgical History Surgery Date(Month/Year)
== END ==
LOC: HO.SL 20:30
PROVIDERS: PCP Internal Medicine Cardiovascular Disease; Visit Provider Nurse Practitioner Family
DX: G47.33 Obstructive sleep apnea (adult) (pediatric) (principal)
CPT/HCPCS: 95811

== ENCOUNTER 2025-03-14 12:44 | Outpatient (AMB) | payer OTHER, BC, SELFPAY ==
--- NOTE | 2025-03-14 12:56 | MHC.OFFVISWM ---
VS Expanded 03/14/25 13:04 BP 128/68 Blood Pressure Location Rt brachial Blood Pressure Position Sitting Pulse 60 Pulse Source Pulse Oximeter Temp 97.8 F Temperature Source Temporal Artery Scan Pulse Oximetry 98 Oxygen Delivery Method Room Air Height 5 ft 7 in Weight 177 lb 3.2 oz BMI 27.8 Body Fat % 20.8 Body Fat Mass 36.8 Fat Free Mass 140.2 Visceral Fat Rating 10.0 Body Water % 57.4 Body Water Mass 101.6 Muscle Mass/Score 133.2 Basal Metabolic Rate/Score 1,835 Intake Visit Reasons: (OV) s/p Panniculectomy 12/14/24 Allergies No Known Allergies Allergy (Verified 03/14/25 12:58) HPI Comments Details: 49-year-old male returns to the office today in follow-up. He is status post panniculectomy performed on 12/14/2024. Weight today is 177.2 with a BMI of 27.8. He reports that he is feeling very good. He is anxious to return to the gym. He is very excited to note that he is now in a size 33 nelly. He is very happy with his results and has no complaints at today's visit. He is also s/p LSG without hiatal hernia repair on?01/07/23. There has been a 110.4 pound weight loss,(initial weight 287.6 pounds) since starting the program on 04/29/23 reflecting a 38.3% total body weight loss and a weight loss of 85.3 pounds since surgery (operative weight 262.5 pounds) reflecting a 32.4% TBWL since surgery. Meal plan: Equate RTD (30 gm pro) 6 oz w 2 oz almond milk x 2 AM and PM meal midday 7 forks protein and 7 forks veg. Exercise plan: may return to full cardio and gym activities [facility] Medical History Seasonal allergies Postgastrectomy malabsorption Prediabetes GERD (gastroesophageal reflux disease) Sleep apnea Asthma Morbid obesity Surgical History S/P panniculectomy S/P laparoscopic sleeve gastrectomy (12/2022) History of esophagogastroduodenoscopy (EGD) H/O colonoscopy Family History Mother HTN (hypertension) Father HTN (hypertension) Diabetes Son No problems noted. Son No problems noted. Social History Household Members: Family Housing: Apartment Are you a primary healthcare technician to a significant other at home: No Do you presently have visiting nurse or other home services: No 75 years or older and lives alone: No Alcohol intake: never Patient Tobacco Use Status: Never used Tobacco Advance Directives Date on File: 11/04/22 service: No Current occupational status: employed Physical Exam Skin Other: Transverse abdominal incision well healed. Umbilicus well healed and viable. Assessment & Plan Assessment & Plan (1) S/P panniculectomy: Code(s): Z98.890 - Other specified postprocedural states Category: Surgical Plan: Patient is scheduled to return to work on 03/21/2025. He may do so without restriction. He may return to the gym. Encouraged to resume cardiovascular activities with a goal of burning 300 calories per day. He may lift weights. He may do abdominal and core work. We will have him return for follow-up in July. He was encouraged to call or text with any questions or concerns.
[2025-03-14 13:04] VITALS: BP 128/68; PULSE 60; TEMP 36.6; O2SAT 98; BMI 27.8
--- OUTSIDE RECORDS SUMMARY | 2025-03-14 13:05 | XMS_ITS | Patient Health Record ---
Author Organization [facility] - So [facility] Address [address] [place] [address] Care Team Providers Care Respite Coordinator Name Role Phone Fernanda Cherry Unavailable [phone] Reason For Referral No Information Plan Of Treatment No Information Insurance Providers Payer Name Payer Address Payer Phone Subscriber Number Group Number Insured Name Patient Relationship to Insured Coverage Start Date Coverage End Date [facility] [address] [place] [id number] Preston Clarke Self - patient is the insured Medical (General) History Medical History History ICD Code Asthma Surgical History Surgery Date(Month/Year)
--- OUTSIDE RECORDS SUMMARY | 2025-03-14 13:05 | XMS_ITS | Patient Health Record ---
Author Organization [facility] Address [address] [place] [address] Care Team Providers Care Bench Assembler Electrical Name Role Phone CoppolaRonald Primary Care Provider Russell Garduno Unavailable [phone] Allergies No Known Allergies Results Component Value Reference Range Notes *Vitamin D, 25-Hydroxy (0819 50) Reviewed date:05/10/2024 02:15:32 PM Interpretation: Performing Lab:[facility], [facility] [place], [place] [id number], Phone - [phone], Director - Judie Notes/Report: Vitamin D, 25-Hydroxy 36.0 30.0-100.0 ng/mL Vitamin D deficiency has been defined by the [place] of [employer] and an Endocrine Society practice guideline as a level of serum 25-OH vitamin D less than 20 ng/mL (1,2). The Endocrine Society went on to further define vitamin D insufficiency as a level between 21 and 29 ng/mL (2). 1. IOM ([place] of Medicine). 2010. Dietary reference intakes for calcium and D. [place]: The National Academies Press. 2. Preet MF, Munira NC, Angelika PATRICIO, et al. Evaluation, treatment, and prevention of vitamin D deficiency: an Endocrine Society clinical practice guideline. JCEM. 2010; 96(7):1911-30. *Hemogloblin A1c w/ eAG Est (154244) Reviewed date:05/10/2024 02:15:32 PM Interpretation: Performing Lab:[facility] [address] [id number], Phone - [phone], Director - [facility] Notes/Report: Hemoglobin A1c 5.5 4.8-5.6 % . Prediabetes: 5.7 - 6.4 Diabetes: >6.4 Glycemic control for adults with diabetes: <7.0 Estim. Avg Glu (eAG) 111 *Vitamin B12 (364703) Reviewed date:05/10/2024 02:15:32 PM Interpretation: Performing Lab:[address] [id number], Phone - [phone], Director - [facility] Notes/Report: Vitamin B12 603 860-2297 pg/mL *Lipid Panel (851865) Reviewed date:05/10/2024 02:15:32 PM Interpretation: Performing Lab:[address] [id number], Phone - [phone], Director - [facility] Notes/Report: Cholesterol, Total 148 100-199 mg/dL Triglycerides 62 0-149 mg/dL HDL Cholesterol 46 >39 mg/dL VLDL Cholesterol Boby 13 5-40 mg/dL LDL Chol Calc (NIH) 89 0-99 mg/dL *PSA, Serum (835153) (Not ye t reviewed by provider) Interpretation: Performing Lab:[address] [id number], Phone - [phone], Director - [facility] Notes/Report: Prostate Specific Ag 0.9 0.0-4.0 ng/mL Zahida ECLIA methodology. . According to the [place] [employer], Serum PSA should decrease and [...] yet reviewed by provider) Interpretation: Performing Lab:[address] [id number], Phone - [phone], Director - Judie Notes/Report: Vitamin D, 25-Hydroxy 33.0 30.0-100.0 ng/mL Vitamin D deficiency has been defined by the [place] of Medicine and an Endocrine Society practice guideline as a level of serum 25-OH vitamin D less than 20 ng/mL (1,2). The Endocrine Society went on to further define vitamin D insufficiency as a level between 21 and 29 ng/mL (2). 1. IOM ([place] of Medicine). 2010. Dietary reference intakes for calcium and D. [place]: The National Academies Press. 2. Preet MF, Munira DAVEY, Angelika PATRICIO, et al. Evaluation, treatment, and prevention of vitamin D deficiency: an Endocrine Society clinical practice guideline. JCEM. 2010; 96(7):1911-30. *Hemogloblin A1c w/ eAG Est (473592) (Not yet reviewed by provider) Interpretation: Performing [facility] [address] [place], [place] [id number], Phone - [phone], Director - Judie Notes/Report: Hemoglobin A1c 5.4 4.8-5.6 % . Prediabetes: 5.7 - 6.4 Diabetes: >6.4 Glycemic control for adults with diabetes: <7.0 Estim. Avg Glu (eAG) 108 *Vitamin B12 (052161) (Not y et reviewed by provider) Interpretation: Performing Lab:[facility], [facility] [address] [place] [id number], Phone - [phone], Director - Judie Notes/Report: Vitamin B12 415 829-9282 pg/mL *Lipid Panel (752913) (Not y et reviewed by provider) Interpretation: Performing Lab:[facility] [place], [facility] [address] [place], [place] [id number], Phone - [phone], Director - Judie Notes/Report: Cholesterol, Total 178 100-199 mg/dL Triglycerides 52 0-149 mg/dL HDL Cholesterol 47 >39 mg/dL VLDL Cholesterol Boby 10 5-40 mg/dL LDL Chol Calc ([facility]) 121 0-99 mg/dL *Urinalysis, Routine Urinaly sis, by dip stick or tablet reagent Reviewed date:10/20/2024 09:51:16 AM Interpretation: Performing Lab: Notes/Report: Leukocytes Neg Urine-Color Yellow Appearance Cloudy Specific [place] 1.025 pH 6.0 Glucose Neg Protein 0.14 Occult Blood Neg Bilirubin 1+ Urobilinogen,Semi-Qn 3.5 Nitrite, Urine Neg Ketones Neg *Vitamin D, 25-Hydroxy (0819 50) (Not yet reviewed by provider) Interpretation: Performing Lab:[facility] [address] [id number], Phone - [phone], Director - MDYeison Notes/Report: Vitamin D, 25-Hydroxy 36.0 30.0-100.0 ng/mL Vitamin D deficiency has been defined by the [place] of Medicine and an Endocrine Society practice guideline as a level of serum 25-OH vitamin D less than 20 ng/mL (1,2). The Endocrine Society went on to further define vitamin D insufficiency as a level between 21 and 29 ng/mL (2). 1. IOM ([place] of Medicine). 2010. Dietary reference intakes for calcium and D. [place]: The National Academies Press. 2. Preet MF, Munira NC, Angelika PATRICIO, et al. Evaluation, treatment, and prevention of vitamin D deficiency: an Endocrine Society clinical practice guideline. JCEM. 2010; 96(7):1911-30. *Vitamin B12 (505758) (Not y et reviewed by provider) Interpretation: Performing [facility] [address] [place] [id number], Phone - [phone], Director - Judie Notes/Report: Vitamin B12 840 158-0816 pg/mL *PSA, Serum (461115) Reviewed date:09/28/2024 03:26:16 PM Interpretation: Performing Lab: Notes/Report: Prostate Specific Ag 1.0 0.0-4.0 ng/mL [facility] (496496) Reviewed date:09/28/2024 03:26:16 PM Interpretation: Performing Lab: [...] Status Risk Notes Problem Vitamin B deficiency (75362820) Deficiency of other specified B group vitamins (E53.8) Active confirmed Problem Obesity (813441752) Obesity, unspecified (E66.9) Active confirmed Problem History of bariatric surgical procedure (006638829) Bariatric surgery status (Z98.84) Active confirmed Problem 229112340 Dyslipidemia (E78.5) Active confirmed Problem Asthma (947322459) Asthma (J45.909) Active confirmed Problem 51520993 Vitamin D deficiency (E55.9) Active confirmed Problem 403384532 Morbid obesity (E66.01) Active confirmed Problem 70691340 Migraine without status migrainosus, not intractable, unspecified migraine type (G43.909) Active confirmed Problem 15981990 Hypogonadism mal e (E29.1) Active confirmed Problem 208070400 Mild persistent asthma without complication (J45.30) Active confirmed Problem 393487185 Other elevated white blood cell (WBC) count (D72.828) Active confirmed Problem 65269744 Lymphocytosis (D72.820) Active confirmed Problem 372715417 Obesity (BMI 30-39.9) (E66.9) Active confirmed Problem 996641134 House dust mite allergy (Z91.09) Active confirmed Problem 850966262 Type 2 diabetes mellitus without complication, without long-term current use of insulin (E11.9) Active confirmed Problem 80372682 Right bundle branch block (RBBB) (I45.10) Active confirmed Problem 836052390 Mild intermitten t asthma, unspecified whether complicated (J45.20) Active confirmed Problem 583411328 Seasonal allergi c rhinitis, unspecified trigger (J30.2) Active confirmed Problem Hepatic fibrosis (disorder) (39546125) Hepatic fibrosis, unspecified (K74.00) Active confirmed Vital [...] 12/09/2024 Encounters Encounter Location Date Provider Diagnosis [facility] [address] [facility] [address] [place] [address] 03/18/2024 Ronald Coppola B12 deficiency E53.8 ; Dyslipidemia E78.5 ; Vitamin D deficiency E55.9 and Type 2 diabetes mellitus without complication, without long-term current use of insulin E11.9 [place] [address] [address] 03/25/2024 Ronald Coppola Dyslipidemia E78.5 ; Vitamin D deficiency E55.9 ; Type 2 diabetes mellitus without complication, without long-term current use of insulin E11.9 ; B12 deficiency E53.8 and Screening for prostate cancer Z12.5 [place] [address] [address] 04/14/2024 Russell Laureen Migraine without sta tus migrainosus, not intractable, unspecified migraine type G43.909 [place] [address] [address] 06/07/2024 Russell Garduno Type 2 diabetes madan itus without complication, without long-term current use of insulin E11.9 ; Vitamin D deficiency E55.9 ; Dyslipidemia E78.5 ; B12 deficiency E53.8 and Screening for prostate cancer Z12.5 [place] [address] [address] 06/16/2024 Ronald Coppola Dyslipidemia E78.5 ; Vitamin D deficiency E55.9 ; Type 2 diabetes mellitus without complication, without long-term current use of insulin E11.9 ; B12 deficiency E53.8 and Screening for prostate cancer Z12.5 [place] [address] [address] 08/17/2024 Ronald Coppola Painful urination R3 0.9 [facility] [address] [place] [address] 09/24/2024 Russell Laureen B12 deficiency E53.8 ; Vitamin D deficiency E55.9 and Encounter for screening Z13.9 [facility] [address] [place] [address] 09/30/2024 Ronald Coppola Dyslipidemia E78.5 ; Vitamin D deficiency E55.9 ; Type 2 diabetes mellitus without complication, without long-term current use of insulin E11.9 ; B12 deficiency E53.8 and Screening for prostate cancer Z12.5 [place] [address] [facility] [address] [place] [address] 11/16/2024 Ronald Coppola Sports physical Z02. 5 and Right bundle branch block (RBBB) I45.10 [place] [address] [facility] [address] [place] [address] 12/09/2024 Ronald Coppola Status post panniculectomy Z98.890 and Administrative encounter Z02.9 [place] [address] [facility] [address] [place] [address] 12/07/2024 Ronald Coppola Assessments Encounter Date Diagnosis [...] RBBB. States that he was referred to Building Official and reprots of having multitudes of tests (including stress test) and all were benign. 12/09/2024 Status post panniculectomy (ICD-10 - Z98.890) 12/09/2024 Administrative encounter (ICD-10 - Z02.9) Letter written 03/18/2024 Vitamin D deficiency (ICD-10 - E55.9) [...] Test Name Order Date Vitamin A, Serum (467997) 07/08/2023 *Insulin (391999) 07/08/2023 *CBC With Differential/Platelet (644692) 07/08/2023 *Iron and TIBC (170409) 07/08/2023 *Vitamin D, 25-Hydroxy (957062) 07/08/20 23 Hemoglobin A1c (760032) 07/08/2023 *C-Reactive Protein, Cardiac (588033) *Lipid Panel (179054) 07/08/2023 Basic Metabolic Panel (8) (071531) 07/08 Vitamin B12 and Folate (471703) 07/08/20 23 *Ferritin, Serum (746225) 07/08/2023 TSH reflex to T4F 07/08/2023 *PSA, Serum (330096) 06/07/2024 *Vitamin D, 25-Hydroxy (139786) 06/07/20 24 *Hemogloblin A1c w/ eAG Est (512026) *Vitamin B12 (780919) 06/07/2024 *Lipid Panel (799505) 06/07/2024 *Vitamin D, 25-Hydroxy (903288) 09/24/19 25 *Vitamin B12 (760895) 09/24/2024 Future Test Test Name Order Date *Vitamin D, 25-Hydroxy (893169) 01/29/20 25 *Hemogloblin A1c w/ eAG Est (499237) *Vitamin B12 (688482) 01/28/2025 *Lipid Panel (184595) 01/28/2025 Insurance Providers Payer Name Payer Address Payer Phone Subscriber Number Group Number Insured Name Patient Relationship to Insured Coverage Start Date Coverage End Date [facility] [address] [place] [address] [id number] Preston Nuñez Self - patient is the insured 4 [facility] [address] [place] [address] [id number] Preston Nuñez Self - patient is the insured 8 8 [facility] [address] [place] [address] [id number] Preston Nuñez Self - patient is the insured 7 4 Medications Administered Medication Instructions Date of Administration Dosage Notes Ketorolac Tromethamine 04/14/2024 2 mL Medical (General) History Medical History History ICD Code Asthma Seasonal allergies Obesity Diabetes Migraine headaches Surgical History Surgery Date(Month/Year) Colonoscopy 2021 Gastric bypass surgery (December 2022).
== END 2025-03-14 13:20 | disposition home or self-care (01) ==
LOC: HO.HBS 12:45
PROVIDERS: PCP Internal Medicine Cardiovascular Disease; Visit Provider Physician Assistant Surgical
DX: Z98.890 Other specified postprocedural states (principal)
CPT/HCPCS: 99024

== ENCOUNTER 2025-07-11 09:40 | Outpatient (AMB) | payer OTHER, BC, SELFPAY ==
--- NOTE | 2025-07-11 09:11 | MHC.OFFVISWM ---
VS Expanded 07/11/25 09:13 Height 5 ft 7 in Weight 177 lb BMI 27.7 Intake Visit Reasons: TV s/p Panniculectomy 12/14/24 Allergies No Known Allergies Allergy (Verified 03/14/25 12:58) Medication List - Last Reconciled 07/11/25 by BERYL Ashraf albuterol sulfate 0.63 mg inhalation QID PRN ascorbate calcium (vitamin C) 500 mg PO DAILY budesonide (Pulmicort) 0.25 mg inhalation BID PRN calcium carbonate 600 mg PO DAILY calcium citrate 200 mg PO BID cetirizine (All Day Allergy (cetirizine)) 10 mg PO DAILY PRN cholecalciferol (vitamin D3) 125 mcg PO DAILY docusate sodium (Colace) 100 mg PO DAILY [fusion MVI PO DAILY] multivitamin 1 tab PO DAILY ondansetron 4 mg PO Q12H triamcinolone acetonide 0.1% 1 appl topical BID vitamin D98-mhqmh acid 2,500-400 mcg 1 tab PO DAILY HPI Comments Details: 49-year-old male returns to the office today in follow-up. He is status post panniculectomy performed on 12/14/2024. Weight today is 177 with a BMI of 27.7. He reports that he is feeling very good. He is very happy with his results and has no complaints at today's visit. He is also s/p LSG without hiatal hernia repair on 01/07/23. Initial weight 287.6 pounds starting the program on 04/29/23 and operative weight 262.5 pounds. Meal plan: Equate RTD (30 gm pro) 6 oz w 2 oz almond milk x 2 AM and PM meal midday 7 forks protein and 7 forks veg. Exercise plan: limited in free time due to busy work schedule- 2 jobs will be less busy in August- hopes to return to more exercise likes to go running. 3 miles 3x week but hasn't been able to Have you been diagnosed with reflux (GERD)? Score 0-5: 0=no symptoms, 1=noticeable but not bothersome (slight or occasional), 2=noticeable, bothersome but not daily, 3=bothersome and daily, 4=affects daily activities, 5=incapacitating, unable to do daily activities How bad is the heartburn: 0 Heartburn when lying down: 0 Heartburn when standing up: 0 Heartburn after meals: 0 Does heartburn change your diet: 0 Does heartburn wake you up from sleep: 0 Do you have difficulty swallowin Do you have pain with swallowin If you take medication for reflux, does this affect your daily life: 0 Total score: 0 PFSH Medical History Seasonal allergies Postgastrectomy malabsorption Prediabetes GERD (gastroesophageal reflux disease) Sleep apnea Asthma Morbid obesity Surgical History S/P panniculectomy S/P laparoscopic sleeve gastrectomy (12/2022) History of esophagogastroduodenoscopy (EGD) H/O colonoscopy Family History Mother HTN (hypertension) Father HTN (hypertension) Diabetes Son No problems noted. Son No problems noted. Social History Household Members: Family Housing: Apartment Are you a primary primary care sales representative to a significant other at home: No Do you presently have visiting nurse or other home services: No 75 years or older and lives alone: No Alcohol intake: never Patient Tobacco Use Status: Never used Tobacco Advance Directives Date on File: 11/04/22 service: No Current occupational status: employed Telehealth Telehealth Telehealth Platform: Telephone Location of provider rendering services: practice address Location of patient: address on file Patient Identification confirmed using: Name, : Yes Telehealth method: voice only Patient verbally consented to treatment: Yes Patient verbally consented to billing insurance company: Yes Patient informed of any privacy concerns related to visit: Yes Minutes spent on Phone/Video with Pt.: 6 Assessment & Plan Assessment & Plan (1) S/P laparoscopic sleeve gastrectomy: Onset Date: 12/2022 Code(s): Z98.84 - Bariatric surgery status Category: Surgical (2) Overweight (BMI 25.0-29.9): Code(s): E66.3 - Overweight Category: Medical (3) S/P panniculectomy: Code(s): Z98.890 - Other specified postprocedural states Category: Surgical Plan Continue same meal plan as above. Pt is aware that his exercise is not to goal but plans to resume as soon as work schedule is less busy next month. He had labs done earlier this year. RTC 3mo in person to see
[2025-07-11 09:13] VITALS: BMI 27.7
--- OUTSIDE RECORDS SUMMARY | 2025-07-11 11:39 | XMS_ITS | Clinical Summary ---
Author Organization [facility] Address [address] [place] [address] Care Team Providers Care Handle Sewer Name Role Phone Russell Garduno DO Primary Care Provider [phone] Allergies No known active allergies Medications cetirizine (ZYRTEC) 10 mg tablet Take 10 mg by mouth daily. Active vitamin C 500 mg tablet Take 1,000 mg by mouth daily. Active albuterol sulfate 2.5 mg /3 mL (0.083 %) nebulizer solution 3 ml Active budesonide (Pulmicort) 0.25 mg/2 mL nebulizer solution EVERY 24 HOURS. Active ibuprofen (ADVIL,MOTRIN) 800 mg tablet TAKE 1 TABLET BY MOUTH TWICE DAILY WITH FOOD 02/07/2021 Active metFORMIN (GLUCOPHAGE) 500 mg tablet Take 500 mg total (1 tablet) by mouth 2 (two) times daily with meals. 60 tablet 1 03/14/2021 Active ergocalciferol (ERGOCALCIFEROL) 1,250 mcg (50,000 unit) capsule Take 50,000 Units total (1 capsule) by mouth once a week. 4 capsule 2 03/14/2021 Active Active Problems Problem Noted Date Diagnosed Date Elevated hemoglobin A1c 03/14/2021 ALEXIS (obstructive sleep apnea) 03/14/2021 Vitamin D deficiency 03/14/2021 Mild asthma without complica tion, unspecified whether persistent 11/30/2020 Snoring 11/29/2020 Obesity, Class III, BMI 40-49.9 (morbid obesity) 11/29/2020 Social History Tobacco Use Types Packs/Day Years Used Date Smoking Tobacco: Never Smokeless Tobacco: Never Alcohol Use Standard Drinks/Week Comments Yes 2 (1 standard drink = 0.6 oz pur e alcohol) socially PHQ-2 Answer Date Recorded PHQ-9 Total Score 4 11/16/2020 Sex and Gender Information Value Date Recorded Sex Assigned at Not on file Legal Sex Male 10:36 AM EDT Gender Identity Not on file Sexual Orientation Not on file 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 Not on file Not on file No t on file Last Filed Vital Signs Vital Sign Reading Time Taken Comments Blood Pressure 138/83 03/14/2021 11:23 AM EDT Pulse 91 03/14/2021 11:23 AM EDT Temperature - - Respiratory Rate - - Oxygen Saturation 97% 03/14/2021 11:23 AM EDT Inhaled Oxygen Concentration - - Weight 133.8 kg (295 lb) 08/20/2021 11:30 AM EST Height 170.2 cm (5' 7 ) 08/20/2021 11:30 AM EST Body Mass Index 46.2 08/20/2021 11:30 AM EST Plan of Treatment Health Maintenance Due Date Last Done Comments Cologuard 1973 Depression Screening & Follow Up 1973 FIT 1973 FOBT 1973 Flex Sigmoidoscopy 1973 IMM SERIES: MMR Vaccines (1 of 1 - Standard series) 1974 Social Drivers of Health Assessment 1974 IMM SERIES: Varicella Vaccin es (1 of 2 - 13+ 2-dose series) 1986 HEPATITIS C SCREENING 1991 Weight Management (Adult) 1991 IMM SERIES: DTAP/TDAP/TD/DTP (1 - Tdap) 1992 IMM SERIES: Hepatitis B Vacc ine (1 of 3 - 19+ 3-dose series) 1992 Annual Exam for 40yo+ 2013 Colonoscopy 2023 Colorectal Cancer Screening 2023 IMM SERIES: Zoster (1 of 2) 2023 PROSTATE CANCER COUNSELING/SCREENING 2023 Influenza Vaccine (#1) 2025 IMM SERIES: SARS-COV2 and CO VID-19 vaccines (2024- season) 2025 11/17/2020 IMM SERIES: HIB Vaccines Aged Out No longer eligible based on patient's age to complete this topic IMM SERIES: HPV Vaccines Aged Out No longer eligible based on patient's age to complete this topic IMM SERIES: Hepatitis A Vaccine Aged Out No longer eligible based on patient's age to complete this topic IMM SERIES: Meningococcal ACWY Aged Out No longer eligible based on patient's age to complete this topic IMM SERIES: Meningococcal B Vaccines Aged Out No longer eligible b ased on patient's age to complete this topic IMM SERIES: Polio Vaccines Aged Out N o longer eligible based on patient's age to complete this topic IMM SERIES: Rotavirus Vaccines Aged Out No longer eligible based on patient's age to complete this topic Pneumococcal (0-5 years) and At-Risk Patients (6 to 64 Years) Aged Out No long er eligible based on patient's age to complete this topic Insurance [facility] Care Teams Handle Sewer Relationship Specialty Start Date End Date Russell Garduno DO [address] [address] PCP - General Family Medicine 12/02/17
--- OUTSIDE RECORDS SUMMARY | 2025-07-11 11:39 | XMS_ITS | Clinical Summary ---
Author Organization [facility] Address [address] [place] [id number] Care Team Providers Care Goat Herder Name Role Phone Pcp, No Primary Care Provider Unavailabl e Social History Tobacco Use Types Packs/Day Years Used Date Smoking Tobacco: Never Assessed [facility] Housing Answer Date Recorded Living Situation Not on file 03/26/2023 Housing Problems Not on file 03/26/2023 [facility] Safety Answer Date Recorded Threatened Not on file 03/26/2023 Insulted Not on file 03/26/2023 Physically Hurt Not on file 03/26/2023 Scream Not on file 03/26/2023 Sex and Gender Information Value Date Recorded Sex Assigned at Not on file Legal Sex Male 8:58 PM EDT Gender Identity Not on file Sexual Orientation Not on file Last Filed Vital Signs Vital Sign Reading Time Taken Comments Blood Pressure 127/76 04/26/2025 3:18 PM EDT Pulse 52 04/26/2025 3:18 PM EDT Temperature 36.4 C (97.6 F) 04/26/2025 3:18 PM EDT Respiratory Rate 18 04/26/2025 3:18 PM EDT Oxygen Saturation 98% 04/26/2025 3:18 PM EDT Inhaled Oxygen Concentration - - Weight 83.9 kg (185 lb) 04/26/2025 3:18 PM EDT Height 170.2 cm (5' 7 ) 04/26/2025 3:18 PM EDT Body Mass Index 28.98 04/26/2025 3:18 PM EDT Plan of Treatment Health Maintenance Due Date Last Done Comments CT Colonography 1973 Cologuard 1973 Colonoscopy 1973 Colorectal Cancer Screening 1973 FIT 1973 FOBT 1973 Hepatitis C Screening 1973 Lipid Panel 1973 Sigmoidoscopy 1973 MMR Vaccines (1 of 1 - Stand neto series) 1974 Annual Physical 01/24/1976 Depression Screening 1985 DTaP/Tdap/Td Vaccines (1 - Tdap) 1992 Hepatitis B Vaccines (1 of 3 - 19+ 3-dose series) 1992 Pneumococcal Vaccine: 50+ Ye ars (1 of 1 - PCV) 2023 Zoster Vaccines (1 of 2) 2023 Influenza Vaccine (#1) 2025 Respiratory Syncytial Virus (RSV) 60 years and older and/or patients (1 - 1-dose 75+ series) 2048 HPV Vaccines Aged Out No longer eligi ble based on patient's age to complete this topic Hepatitis A Vaccines Aged Out No long er eligible based on patient's age to complete this topic Meningococcal B Vaccine Aged Out No l onger eligible based on patient's age to complete this topic Meningococcal Vaccine Aged Out No que noé eligible based on patient's age to complete this topic Respiratory Syncytial Virus (RSV) <20 months Aged Out No longer eligible b ased on patient's age to complete this topic Procedures Procedure Name Priority Date/Time Associated Diagnosis Comments OFFICE SPIROMETRY Routine 04/26/2025 4:1 0 PM EDT Encounter for physical examination related to employment Annual physical exam AUDIOMETRY CC Routine 04/26/2025 4:10 PM EDT Encounter for physical examination related to employment Annual physical exam POC URINALYSIS DIPSTICK Routine 04/26/2025 4:08 PM EDT Encounter for physical examination related to employment Annual physical exam XR CHEST 2 VIEWS Routine 04/26/2025 3:59 PM EDT Encounter for physical examination related to employment Annual physical exam from Last 3 Months Results * Breathing capacity test (04/26/2025 4:10 PM EDT) Anatomical Region Laterality Modality Other us Alberto Guevara APRN PFT ORDERABLES Final Result * Audiometry ([id number]) (04/26/2025 4:10 PM EDT) Alberto Guevara APRN IN CLINIC/BEDSIDE ORDERABLES F inal Result * (ABNORMAL) POC Urinalysis dipstick, manually resulted (04/26/2025 4:08 PM EDT) Color, UA Yellow Clarity, UA Clear POC Urine Glucose Negative Negative, =100 mg/dL Bilirubin, UA POC Negative Negative Ketones, UA POC Trace(A) Negative, Very large Specific Ebro, UA 1.025 1.010, 1.015, 1.020, 1.025, >=1.030 Blood, UA Negative Negative pH, Urine POC 5.5 5.0, 5.5, 6.0, 6.5, 7.0 Protein, UA POC Negative mg/dL Urobilinogen, UA POC 0.2 EU per dL Nitrite, UA POC Negative Negative Leukocyte Esterase, UA Negative Negative Urine Urine specimen obtained by clean catch procedure / Unknown 04/26/2025 4:08 PM EDT Alberto Guevara APRN POINT OF CARE TEST ENTER/EDIT ORDERABLES Final Result * XR Chest 2 Views (04/26/2025 3:59 PM EDT) Anatomical Region Laterality Modality Chest N/A Digital Radiogra phy Narrative 04/28/2025 9:54 AM EDT Normal. 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
--- OUTSIDE RECORDS SUMMARY | 2025-07-11 11:39 | XMS_ITS | Clinical Summary ---
Author Organization [facility] Address [address] [place], [place] Phone Care Team Providers Care Environmental Conservation Professor Name Role Phone Ronald Coppola MD Primary Care Provider [phone] Allergies No known active allergies Medications cetirizine (ZyrTEC) 10 mg tablet Take 10 mg by mouth daily. Active budesonide (PULMICORT) 0.25 mg/2 mL nebulizer solution 1 (one) time each day. Active ascorbic acid (VITAMIN C) 500 mg tablet Take 1,000 mg by mouth daily. Active albuterol 2.5 mg/3 mL (0.083 %) nebulizer solution 3 ml Active Aleve 220 mg tablet TAKE 2 TABLETS BY MOUTH EVERY 12 HOURS WITH FOOD FOR 7 DAYS 5 06/24/20 25 Discontinu ed(Not Taking) methylPREDNISol one (MEDROL KAROL) 4 mg tablet TAKE BY MOUTH DIRECTED ON INSIDE OF PACKAGE FOR 6 DAYS 5 06/24/20 25 Discontinu ed(Not Taking) Arthritis Pain, diclofenac, 1 % topical gel APPLY (2 GRAMS) TO AFFECTED AREA OF RIGHT WRIST TWICE DAILY FOR 10 DAYS 5 06/24/20 25 Discontinu ed(Not Taking) Active Problems Problem Noted Date Diagnosed Date Gastroesophageal reflux disease without esophagi tis 06/24/2025 Assessment & Plan (06/24/2025 1:15 PM EST): Well controlled with diet after losing weight post bariatric sx. Continue GERD diet indefinitely. Slow transit constipation 06/24/2025 Assessment & Plan (06/24/2025 1:15 PM EST): Chronic, s/p bariatric sx. Recommend stay well hydrated and increase water intake. Start metamucil daily and stool softener otc prn Encounter for screening for malignant neoplasm o f prostate 08/15/2021 Benign prostatic hyperplasia 08/15/2021 Pickwickian syndrome 06/22/2021 Gastro-esophageal reflux dis ease with esophagitis, without bleeding 06/22/2021 Colon cancer screening 06/22/2021 Assessment & Plan (06/24/2025 1:15 PM EST): UTD, repeat in 10 years from last colonoscopy Bariatric surgery status 06/22/2021 Assessment & Plan (06/24/2025 1:15 PM EST): Stable Vitamin D deficiency 03/14/2021 ALEXIS (obstructive sleep apnea) 03/14/2021 Elevated hemoglobin A1c 03/14/2021 Mild asthma without complication 11/30/2020 Snoring 11/29/2020 Obesity, Class III, BMI 40-49.9 (morbid obesity) 11/29/2020 Encounters Date Type Department Care Team Description 06/24/2025 7:15 AM EST Office Visit [facility] Gastroenterology [address] [place] [address] Ingrid Ward PA Gastroesophageal reflux disease without esophagitis (Primary Dx); Colon cancer screening; Bariatric surgery status; Slow transit constipation from Last 3 Months Social History Tobacco Use Types Packs/Day Years Used Date Smoking Tobacco: Never Assessed Sex and Gender Information Value Date Recorded Sex Assigned at Not on file Legal Sex Male 4:11 AM EDT Gender Identity Male 01/11/2025 4:11 AM EDT Sexual Orientation Straight 01/11/2025 4: 11 AM EDT Last Filed Vital Signs Vital Sign Reading Time Taken Comments Blood Pressure 129/77 06/24/2025 7:37 AM EST Pulse 53 06/24/2025 7:37 AM EST Temperature - - Respiratory Rate - - Oxygen Saturation - - Inhaled Oxygen Concentration - - Weight 83.9 kg (185 lb) 06/24/2025 7:37 AM EST Height 170.2 cm (5' 7 ) 06/24/2025 7:37 AM EST Body Mass Index 28.98 06/24/2025 7:37 AM EST Plan of Treatment Upcoming Encounters Date Type Department Care Team (Honey st Contact Info) Description 07/28/2025 1:30 PM EST Office Visit [facility] Urology [address] [place] [address] Latisha Goodman, WORKS MANAGER [address] [facility] [place] [address] [place] [address] Health Maintenance Due Date Last Done Comments CT Colonography 1973 FIT-DNA 1973 FIT 1973 FOBT 1973 HIV Screening 1973 Hepatitis C Screening 1973 Sigmoidoscopy 1973 Lipid Panel 1973 MMR Vaccines (1 of 1 - Standard series) 1974 Obesity Intervention 1979 Depression Screening 1985 DTaP,Tdap,and Td Vaccines (1 - Tdap) 1992 Hepatitis B Vaccines (1 of 3 - 19+ 3-dose series) 1992 Pneumococcal Vaccine: 50+ Years (1 of 2 - PCV) 1992 Pneumococcal Vaccine: Pediatrics (0 to 5 Years) and At-Risk Patients (6 to 49 Years) (1 of 2 - PCV) 1992 Zoster Vaccines (1 of 2) 1992 Colonoscopy 2018 [place] Colorectal Cancer Screening 2018 COVID-19 Vaccine (#1) 08/18/2021 07/21/2021 , 12/18/2020, 11/17/2020 Influenza Vaccine (#1) 2025 RSV women or 60 yea rs and older (1 - 1-dose 75+ series) 2048 HIB Vaccines Aged Out No longer eligi ble based on patient's age to complete this topic HPV Vaccines Aged Out No longer eligi ble based on patient's age to complete this topic Hepatitis A Vaccines Aged Out No long er eligible based on patient's age to complete this topic IPV Vaccines Aged Out No longer eligi ble based on patient's age to complete this topic Meningococcal ACWY Aged Out No longer eligible based on patient's age to complete this topic RSV patients under 20 months Aged Out No longer eligible based on patient's age to complete this topic Insurance [facility] BS BLUE [employer]/NETWORK BLUE Care Teams Environmental Conservation Professor Relationship Specialty Start Date End Date Ronald Coppola MD [address] [facility] [address] [place] [address] PCP - General Internal Medicine 06/07/25
== END 2025-07-11 09:41 | disposition home or self-care (01) ==
LOC: HO.HBS 09:40
PROVIDERS: PCP Internal Medicine Cardiovascular Disease; Visit Provider Physician Assistant Surgical
DX: E66.3 Overweight (principal); Z68.27 Body mass index [BMI] 27.0-27.9, adult; Z90.3 Acquired absence of stomach [part of]; Z98.890 Other specified postprocedural states; Z98.84 Bariatric surgery status
CPT/HCPCS: 99212